=== PATIENT | male | born 1960 | race American Indian/Alaskan Native ===

== ENCOUNTER 2018-12-29 10:39 | Emergency (ER) | payer MEDICAID ==
[~2018-12-29] VITALS: Ht 167.6 cm; Wt 83.9 kg
[2018-12-29 10:51] VITALS: BP 149/80
[2018-12-29] MEDS ORDERED: KETOROLAC TROMETH 30 MG/ML 1ML VIAL IV ONE (11:45)
== END 2018-12-29 12:17 | disposition home or self-care (01) ==
LOC: ER 10:39 → EDBD 10:39 → ER 12:07
DX: S01.01XA Laceration without foreign body of scalp, initial encounter (principal); K21.9 Gastro-esophageal reflux disease without esophagitis; W01.198A Fall on same level from slipping, tripping and stumbling with subsequent striking against other object, initial encounter; Y93.89 Activity, other specified; Y99.8 Other external cause status; Y92.89 Other specified places as the place of occurrence of the external cause
CPT/HCPCS: 12002; 70450; 96374; 99284; J1885

== ENCOUNTER 2025-09-06 04:52 | Inpatient (IN) | payer MEDICAID, OTHER ==
[~2025-09-06] VITALS: Ht 185.4 cm; Wt 84.7 kg
[2025-09-06] VITALS (29 sets, daily range): BP systolic 82–161; BP diastolic 51–87; PULSE 41–92; RESP 16–19; TEMP 97–98.6; O2SAT 92–100
[2025-09-06] MEDS: LORazepam 2MG/ML-1ML VIAL ONE (06:41)
[2025-09-06] MEDS: LORazepam 2MG/ML-1ML VIAL IV ONE (06:42)
[2025-09-06] MEDS: MIDAZOLAM HCL 5 MG/ML-1ML VIAL ONE ×2 (06:42→07:20)
[2025-09-06] MEDS: MIDAZOLAM HCL 5 MG/ML-1ML VIAL IM ONE ×2 (06:43→07:51)
[2025-09-06 07:34] LABS: Hematocrit 39.3 % (41.0-53.0); Hemoglobin 13.7 g/dL (13.5-17.5); Mean Corpuscular Hemoglobin 32.2 pg (28.0-32.0); Mean Corpuscular Volume 92.2 fL (80.0-100.0); Nucleated Red Blood Cells % 0.1 %
[2025-09-06 07:39] LABS: Chloride 98 mmol/L (98-107); Potassium 4.0 mmol/L (3.5-5.1)
[2025-09-06 07:40] LABS: Anion Gap 15 (5-15); Calcium 9.6 mg/dL (8.7-10.4)
[2025-09-06 07:44] LABS: Carbon Dioxide 17 mmol/L (20-31); Sodium 130 mmol/L (136-145)
[2025-09-06 07:45] LABS: BUN/Creatinine Ratio 10.7 (10.0-20.0)
[2025-09-06 07:48] LABS: Blood Urea Nitrogen 9 mg/dL (9-23); Glucose 141 mg/dL (74-106)
[2025-09-06 07:50] LABS: Lactic Acid w/Reflex 8.1 mmol/L (0.4-2.0)
[2025-09-06] MEDS: MIDAZOLAM HCL 5 MG/ML-1ML VIAL IV ONE (07:51)
[2025-09-06] MEDS: ROCURONIUM 10MG/ML 10ML VIAL IV ONE ×2 (07:52→07:53)
[2025-09-06] MEDS: MIDAZOLAM DRIP 100 mg/100mL NS 100 ML IV SCH (07:58)
[2025-09-06] MEDS: PROPOFOL 100 ML IV SCH (07:58)
[2025-09-06] MEDS: MIDAZOLAM DRIP 100 mg/100mL NS 100 ML IV ONE (07:59)
[2025-09-06] MEDS: PROPOFOL 100 ML IV ONE (07:59)
[2025-09-06 08:32] LABS: Base Excess -2.2 mmol/L (-2.0-3.0)
--- NOTE | 2025-09-06 09:06 | DVHHP2 ---
Admitting Diagnosis: Seizure History of Present Illness 65M BIBA w/ prior MHx of Sz(taking depakote) and the c/c of Sz's. EMS report on picking the pt up at home due from having multiple SZ which were tonic clonic. Pt had 4 witnessed Sz in the ER and did not turn to baseline. states on not ever witnessing Sz's like these and stating on them being the worst Sz's he has ever had. Patient was given 10 of Versed, 100 with rocuronium, propofol, central line to the right FEM. Denies any other symptoms at this time. Denies chills, fever, N/V/D, SOB, CP. No other associated symptoms, modifiers, recent injuries or sick contacts present at this time. PAST MEDICAL HISTORY: Anxiety, GERD, Seizures Surgical History: Denies all surgeries Family History Family History: Reviewed,noncontributory to illness, Unknown Social History Smoker: Unknown Alcohol: Unknown Drugs: Unknown Lives In: Home Allergies: Coded Allergies: NO KNOWN ALLERGIES (Unverified , 12/29/18) Current Medications Current Medications Medications (Trade) Dose Ordered Sig/Keshawn Route PRN Reason Start Time Stop Time Status Last Admin Propofol 100 ml @ 3 mls/hr Q24H IV 09/06/25 07:30 09/06/25 07:58 Midazolam HCl 100 ml @ 1 mls/hr Q24H IV 09/06/25 07:30 09/06/25 07:58 Piperacillin Sod/ Tazobactam Sod 100 ml @ 25 mls/hr Q6HR IV 09/06/25 18:00 Levetiracetam 100 ml @ 400 mls/hr BID IV 09/06/25 22:00 Vital Signs Vital Signs Date Time Temp Pulse Resp B/P (MAP) Pulse Ox O2 Delivery O2 Flow Rate FiO2 09/06/25 11:14 65 18 96/52 (67) 100 35 09/06/25 06:55 Nasal Cannula* 2 09/06/25 05:00 98.9 98.9 Physical Exam Generally-65 years old male, well nourished well developed. Intubated and sedated HEENT-atraumatic normocephalic Heart-sinus tachycardic Lungs decreased breath sounds bilaterally Abdomen soft nontender nondistended Musculoskeletal-no edema cyanosis Neuro-intubated and sedated SEPSIS Sepsis Screen Date sepsis recognized/suspect: Sep 06, 2025 Time Sepsis recognized/suspect: 0500 Recent Procedure: No On Antibiotic Therapy: No Respiratory Rate >20: No Heart Rate >90: No Temp<36 C (96.8 F) or >38.3 C: No SBP <90 or MAP <65 mmHG: No New Acute Mental Status Change: No Is the patient on CPAP, BIPAP,: No Physician Orders Chest Portable (09/06/25 06:50) Blood Culture (09/06/25 06:50) Head Without Contrast (09/06/25 06:50) Propofol (Diprivan) (09/06/25 07:30) Midazolam Drip 100 Mg/100ml Ns (Versed D (09/06/25 07:30) Rass Sedation Scale Q1HR (09/06/25 07:16) Ventilator Setup (09/06/25 07:44) Respiratory Culture W/ Gs (09/06/25 07:44) Abg W/ Co-Ox (09/06/25 09:00) * Neurology Consult (09/06/25 09:07) Urine Bacterial Culture (09/06/25 09:16) Piperacillin-Tazob 3.375gm (Zosyn 3.375g (09/06/25 18:00) Respiratory Culture W/ Gs (09/06/25 11:17) Levetiracetam 1000 Mg/100ml (Levetiracet (09/06/25 22:00) Neuro Checks Per Unit Protocol (09/06/25 11:17) Abg W/ Co-Ox (09/07/25 05:00) Abg W/ Co-Ox (09/08/25 05:00) Abg W/ Co-Ox (09/09/25 05:00) Abg W/ Co-Ox (09/10/25 05:00) Abg W/ Co-Ox (09/11/25 05:00) Magnesium (09/07/25 05:00) Magnesium (09/08/25 05:00) Magnesium (09/09/25 05:00) Magnesium (09/10/25 05:00) Magnesium (09/11/25 05:00) Piperacillin-Tazob 3.375gm (Zosyn 3.375g (09/06/25 12:00) Vital Signs Date Time Temp Pulse Resp B/P (MAP) Pulse Ox O2 Delivery O2 Flow Rate FiO2 09/06/25 11:14 65 18 96/52 (67) 100 35 09/06/25 10:15 117/57 09/06/25 10:10 75 18 160/87 92 40 09/06/25 09:45 150/66 09/06/25 09:35 149/62 09/06/25 09:35 149/62 09/06/25 09:11 75 18 160/87 (111) 93 40 09/06/25 07:58 160/95 09/06/25 07:58 160/95 09/06/25 07:52 163/97 09/06/25 07:41 105 100 50 09/06/25 07:00 98 18 132/82 (99) 98 09/06/25 06:55 18 98 Nasal Cannula* 2 28 09/06/25 06:45 71 16 127/76 (93) 98 09/06/25 05:00 98.9 77 18 121/67 98 98.9 Laboratory Tests Test 09/06/25 07:10 09/06/25 09:17 Lactic Acid Level 8.1 mmol/L (0.4-2.0) *H 4.3 mmol/L (0.4-2.0) *H White Blood Count 10.5 10^3/uL (4.4-10.8) Medications Medications Dose Ordered Sig/Keshawn Route Start Time Stop Time Status Last Admin Dose Admin Levetiracetam 100 ml @ 400 mls/hr ONCE ONCE IV 09/06/25 07:00 09/06/25 07:14 DC 09/06/25 09:09 Lorazepam 2 mg STK-MED ONCE .ROUTE 09/06/25 06:14 09/06/25 06:15 DC 09/06/25 06:41 Midazolam HCl 10 mg ONCE ONCE IM 09/06/25 07:30 09/06/25 07:31 DC 09/06/25 07:51 Midazolam HCl 10 mg ONCE ONCE IV 09/06/25 07:30 09/06/25 07:31 DC 09/06/25 07:51 Midazolam HCl 10 mg STK-MED ONCE .ROUTE 09/06/25 06:38 09/06/25 06:37 DC 09/06/25 06:42 Midazolam HCl 100 ml @ 1 mls/hr Q24H IV 09/06/25 07:30 09/06/25 07:58 Piperacillin Sod/ Tazobactam Sod 100 ml @ 100 mls/hr ONCE ONCE IV 09/06/25 12:00 09/06/25 12:59 09/06/25 12:22 Propofol 100 ml @ 3 mls/hr Q24H IV 09/06/25 07:30 09/06/25 07:58 Rocuronium [place] 100 mg ONCE ONCE IV 09/06/25 07:30 09/06/25 07:31 DC 09/06/25 07:52 Sodium Chloride 1,000 ml @ 1,000 mls/hr Q1H ONCE IV 09/06/25 07:00 09/06/25 07:59 DC 09/06/25 09:09 Results Labs Test 09/06/25 09:17 09/06/25 08:35 09/06/25 08:29 09/06/25 07:10 Range/Units Lactic Acid Level 4.3 *H 0.4-2.0 mmol/L Urine Color Light-yellow Yellow Urine Clarity Clear Clear Urine pH 6.0 5.0-9.0 Urine Specific [place] 1.017 1.001-1.035 Urine Protein Negative Negative Urine Ketones 1+ H Negative Urine Blood 2+ H Negative /uL Urine Nitrite Negative Negative Urine Bilirubin Negative Negative Urine Urobilinogen Normal Negative mg/dL Urine Leukocyte Esterase Negative Negative /uL Urine RBC 7 0 - 3 /hpf Urine Microscopic WBC 3 0-3 /HPF Urine Squamous Epithelial Cells None seen <5 /hpf Urine Bacteria None seen None Seen /hpf Urine Mucus Few None Seen Urine Glucose 3+ H Normal mg/dL Urine Opiates Screen Neg NEGATIVE Urine Fentanyl Screen Neg NEGATIVE Urine Barbiturates Screen Neg NEGATIVE Urine Phencyclidine Screen Neg NEGATIVE Urine Amphetamines Screen Neg NEGATIVE Urine Benzodiazepines Screen Pos NEGATIVE Urine Cocaine Screen Neg NEGATIVE Urine Cannabinoids Screen Pos NEGATIVE Blood Gas Specimen Type Arterial Blood Gas Sample Site Left radial Blood Gas Patient Temperature 37.0 Arterial Blood Date Drawn [id number] Arterial Blood pH 7.391 7.350-7.450 Arterial Blood Partial Pressure CO2 37.5 35.0-48.0 mmHg Arterial Blood Partial Pressure O2 108.1 H 83.0-108.0 mmHg Arterial Blood HCO3 22.2 21.0-28.0 mmol/L Arterial Blood Oxygen Saturation 98.0 94.0-98.0 % Arterial Blood Base Excess -2.2 L -2.0-3.0 mmol/L Arterial Blood Oxyhemoglobin 96.1 94.0-98.0 % Arterial Blood Carboxyhemoglobin 1.4 0.5-1.5 % Arterial Blood Methemoglobin 0.5 0.0-1.5 % Ramses Test Modified Blood Gas Total Hemoglobin 14.60 13.5-17.5 g/dL Blood Gas Set Respiration Rate 18.0 Blood Gas Modality Vent - ac FiO2 % 50.0 Blood Gas Tidal Volume 500.0 Blood Gas PEEP or CPAP 5.0 White Blood Count 10.5 4.4-10.8 10^3/uL Red Blood Count 4.26 L 4.5-5.90 10^6/uL Hemoglobin 13.7 13.5-17.5 g/dL Hematocrit 39.3 L 41.0-53.0 % Mean Corpuscular Volume 92.2 80.0-100.0 fL Mean Corpuscular Hemoglobin 32.2 H 28.0-32.0 pg Mean Corpuscular Hemoglobin Concent 34.9 32.0-36.0 g/dL Red Cell Distribution Width 14.1 11.8-14.3 % Platelet Count 330 140-450 10^3/uL Mean Platelet Volume 8.5 6.9-10.8 fL Neutrophils (%) (Auto) 77.1 37.0-80.0 % Lymphocytes (%) (Auto) 15.6 10.0-50.0 % Monocytes (%) (Auto) 6.5 0.0-12.0 % Eosinophils (%) (Auto) 0.1 0.0-7.0 % Basophils (%) (Auto) 0.7 0.0-2.0 % Neutrophils # (Auto) 8.1 1.6-8.6 10 ^3/uL Lymphocytes # (Auto) 1.6 0.4-5.4 10 ^3/uL Monocytes # (Auto) 0.7 0-1.3 10 ^3/uL Eosinophils # (Auto) 0 0-0.8 10 ^3/uL Basophils # (Auto) 0.1 0-0.2 10 ^3/uL Nucleated Red Blood Cells 0.1 % Sodium Level 130 L 136-145 mmol/L Potassium Level 4.0 3.5-5.1 mmol/L Chloride Level 98 98-107 mmol/L Carbon Dioxide Level 17 L 20-31 mmol/L Anion Gap 15 5-15 Blood Urea Nitrogen 9 9-23 mg/dL Creatinine 0.84 0.700-1.30 mg/dL Glomerular Filtration Rate Calc 96 >90 mL/min BUN/Creatinine Ratio 10.7 10.0-20.0 Serum Glucose 141 H 74-106 mg/dL Calcium Level 9.6 8.7-10.4 mg/dL Troponin I High Sensitivity 74 *H </=54 ng/L Primary Diagnosis Tonic-clonic seizure Acute hypoxia requiring intubation Plan Patient was not pertinent airway status post intubation and central line placed Patient is on Versed and propofol for status epilepticus Vent management per research editor Check CT head to rule out acute intracranial hemorrhage Zosyn for broad-spectrum antibiotics Check blood culture, sputum culture Neuro check per floor protocol Neurology consult Full code Lovenox for DVT prophylaxis PPI for GI prophylaxis Plan discussed with: Patient Problems List: (1) Status epilepticus Date of Service: Sep 06, 2025 Billing Provider: VIKY SIDHU MD Common Visit Codes: [id number] INP/OBS CARE (HIGH) VIKY SIDHU MD Sep 06, 2025 09:06
[2025-09-06] MEDS: levETIRAcetam 1000 mg/100ml 100 ML IV ONE (09:09)
[2025-09-06] MEDS: SODIUM CHLORIDE 0.9% 1,000 ML IV ONE (09:09)
--- NOTE | 2025-09-06 09:09 | DVH ---
CLINICAL HISTORY: ams TECHNIQUE: Single view of the chest was obtained. COMPARISON: None FINDINGS: An endotracheal tube terminates 5 cm above the skye. Gastric tube enters stomach and courses beyond the edge of the image. The heart size and pulmonary vasculature are normal. There are medial bibasilar opacities. IMPRESSION: Medial bibasilar opacities, favor mild atelectasis.
--- NOTE | 2025-09-06 09:14 | ED.PDOC ---
History of Present Illness HPI Comments 65M BIBA w/ prior MHx of Sz(taking depakote) and the c/c of Sz's. EMS report on picking the pt up at home due from having multiple SZ which were tonic clonic. Pt had 4 witnessed Sz in the ER and did not turn to baseline. states on not ever witnessing Sz's like these and stating on them being the worst Sz's he has ever had. Patient was given 10 of Versed, 100 with rocuronium, propofol, central line to the right FEM. Denies any other symptoms at this time. Denies chills, fever, N/V/D, SOB, CP. No other associated symptoms, modifiers, recent injuries or sick contacts present at this time. Chief Complaint: Seizure Time Seen by MD: 06:00 Primary Care Provider: ARNALDO Razo Notes: Nurses Notes, Medications, Allergies Allergies: Coded Allergies: NO KNOWN ALLERGIES (Unverified , 12/29/18) Information Source: Patient, Emergency Med Personnel, Spouse Mode of Arrival: EMS Severity: Moderate Timing: Hours Duration: Since onset, Hours Prehospital treatment: None Past Medical History PAST MEDICAL HISTORY: Anxiety, GERD, Seizures Surgical History: Denies all surgeries Family History Family History: Reviewed,noncontributory to illness, Unknown Social History Smoker: Unknown Alcohol: Unknown Drugs: Unknown Lives In: Home Unable to Obtain due to: Altered Mental Status All Other Systems: Reviewed and Negative Physical Exam Exam Comments Patient is unresponsive, combative, confused, tachycardic, not protecting airway at this time General Appearance: No Apparent Distress, Normal HEENT: Normal ENT Inspection, Pharynx Normal, TMs Normal Neck: Full Range of Motion, Non-Tender, Normal, Normal Inspection Respiratory: Chest Non-Tender, Lungs Clear, No Accessory Muscle Use, No Respiratory Distress, Normal Breath Sounds Cardiovascular: No Edema, No JVD, No Murmur, No Gallop, Normal Peripheral Pulses, Regular Rate/Rhythm Breast Exam: Deferred Gastrointestinal: No Organomegaly, Non Tender, No Pulsatile Mass, Normal Bowel Sounds, Soft Genitalia: Deferred Pelvic: Deferred Rectal: Deferred Extremities: No calf tenderness, Normal capillary refill, Normal inspection, Normal range of motion, Non-tender, No pedal edema Musculoskeletal : Apperance: Normal Neurologic: Alert, process designer II-XII nml as Tested, No Motor Deficits, Normal Affect, Normal Mood, No Sensory Deficits Cerebellar Function: Normal Reflexes: Normal Skin: Dry, Normal Color, Warm Lymphatic: No Adenopathy Was a procedure done? 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 Physician Indication: Hypotension, Volume resuscitation Room prepared for procedure: Yes Security System Analyst performed hand hygien: Yes Maximal sterile barrier precau: Mask/Eye shield, Sterile gown, Sterlie gloves, Large sterlie drape Skin Preparation: Chlorhexidine gluconate Skin preparation completely dr: Yes Insertion site: Right, Femoral Central line catheter type: Vad-[id number] dialysis Number of lumens: 3 Central line exchanged over a: Yes Antiseptic ointment applied to: Yes Post Assessment: Proper placement Informed consent obtained: No Risks/benefits/alt described: No Intubation Indication: Altered Mental Status, Airway Protection Prep: No Preoxygenation Pretreated with: Other (Versed) Medicated with: Other (Rocuronium) Intubation Approach: Orotracheal Intubation size: cm (8) Informed consent obtained: No Risks/benefits/alt described: No Differential Dx Considerations may include: ACS, CVA, viral syndrome, status epilepticus, X-Ray, Labs, Meds, VS Vital Signs Date Time Temp Pulse Resp B/P (MAP) Pulse Ox O2 Delivery O2 Flow Rate FiO2 09/06/25 12:15 99.1 65 20 101/58 (72) 98 99.1 09/06/25 12:00 99.1 62 18 101/57 (72) 100 99.1 09/06/25 12:00 101/57 09/06/25 12:00 101/57 09/06/25 12:00 60 09/06/25 11:45 99.0 61 18 102/59 (73) 100 99.0 09/06/25 11:30 99.0 63 18 110/68 (82) 100 99.0 09/06/25 11:15 99.1 63 18 110/64 (79) 100 99.1 09/06/25 11:14 65 18 96/52 (67) 100 35 09/06/25 11:00 96/52 09/06/25 11:00 96/52 09/06/25 11:00 99.0 65 18 96/52 (67) 100 99.0 09/06/25 10:45 98.8 69 18 103/57 (72) 100 98.8 09/06/25 10:30 98.6 65 18 93/54 (67) 100 98.6 09/06/25 10:15 98.3 70 18 117/57 (77) 99 98.3 09/06/25 10:15 117/57 09/06/25 10:10 75 18 160/87 92 40 09/06/25 10:00 98.1 76 18 123/48 (73) 98 98.1 09/06/25 10:00 123/48 09/06/25 10:00 123/48 09/06/25 09:45 97.9 94 18 150/66 (94) 91 97.9 09/06/25 09:45 150/66 09/06/25 09:35 149/62 09/06/25 09:35 149/62 09/06/25 09:30 97.9 62 20 149/62 (91) 92 97.9 09/06/25 09:15 98.1 64 20 156/78 (104) 92 98.1 09/06/25 09:11 75 18 160/87 (111) 93 40 09/06/25 09:00 98.0 105 22 160/87 (111) 92 98.0 09/06/25 09:00 160/87 09/06/25 09:00 160/87 09/06/25 08:45 95 18 166/86 (112) 97 09/06/25 08:30 91 18 183/104 (130) 100 09/06/25 08:15 102 20 173/95 (121) 100 09/06/25 08:00 101 09/06/25 08:00 101 18 146/91 (109) 100 09/06/25 08:00 146/91 09/06/25 08:00 146/91 09/06/25 07:58 160/95 09/06/25 07:58 160/95 09/06/25 07:52 163/97 09/06/25 07:45 92 18 100 Mechanical Ventilator+ 50 50 09/06/25 07:45 92 18 163/97 (119) 100 09/06/25 07:41 105 100 50 09/06/25 07:00 98 18 132/82 (99) 98 09/06/25 06:55 18 98 Nasal Cannula* 2 28 09/06/25 06:45 71 16 127/76 (93) 98 09/06/25 05:00 98.9 77 18 121/67 98 98.9 Lab Test 09/06/25 09:17 09/06/25 08:35 09/06/25 08:29 09/06/25 07:10 Range/Units Lactic Acid Level 4.3 *H 8.1 *H 0.4-2.0 mmol/L Urine Color Light-yellow Yellow Urine Clarity Clear Clear Urine pH 6.0 5.0-9.0 Urine Specific [place] 1.017 1.001-1.035 Urine Protein Negative Negative Urine Ketones 1+ H Negative Urine Blood 2+ H Negative /uL Urine Nitrite Negative Negative Urine Bilirubin Negative Negative Urine Urobilinogen Normal Negative mg/dL Urine Leukocyte Esterase Negative Negative /uL Urine RBC 7 0 - 3 /hpf Urine Microscopic WBC 3 0-3 /HPF Urine Squamous Epithelial Cells None seen <5 /hpf Urine Bacteria None seen None Seen /hpf Urine Mucus Few None Seen Urine Glucose 3+ H Normal mg/dL Urine Opiates Screen Neg NEGATIVE Urine Fentanyl Screen Neg NEGATIVE Urine Barbiturates Screen Neg NEGATIVE Urine Phencyclidine Screen Neg NEGATIVE Urine Amphetamines Screen Neg NEGATIVE Urine Benzodiazepines Screen Pos NEGATIVE Urine Cocaine Screen Neg NEGATIVE Urine Cannabinoids Screen Pos NEGATIVE Blood Gas Specimen Type Arterial Blood Gas Sample Site Left radial Blood Gas Patient Temperature 37.0 Arterial Blood Date Drawn [id number] Arterial Blood pH 7.391 7.350-7.450 Arterial Blood Partial Pressure CO2 37.5 35.0-48.0 mmHg Arterial Blood Partial Pressure O2 108.1 H 83.0-108.0 mmHg Arterial Blood HCO3 22.2 21.0-28.0 mmol/L Arterial Blood Oxygen Saturation 98.0 94.0-98.0 % Arterial Blood Base Excess -2.2 L -2.0-3.0 mmol/L Arterial Blood Oxyhemoglobin 96.1 94.0-98.0 % Arterial Blood Carboxyhemoglobin 1.4 0.5-1.5 % Arterial Blood Methemoglobin 0.5 0.0-1.5 % Ramses Test Modified Blood Gas Total Hemoglobin 14.60 13.5-17.5 g/dL Blood Gas Set Respiration Rate 18.0 Blood Gas Modality Vent - ac FiO2 % 50.0 Blood Gas Tidal Volume 500.0 Blood Gas PEEP or CPAP 5.0 White Blood Count 10.5 4.4-10.8 10^3/uL Red Blood Count 4.26 L 4.5-5.90 10^6/uL Hemoglobin 13.7 13.5-17.5 g/dL Hematocrit 39.3 L 41.0-53.0 % Mean Corpuscular Volume 92.2 80.0-100.0 fL Mean Corpuscular Hemoglobin 32.2 H 28.0-32.0 pg Mean Corpuscular Hemoglobin Concent 34.9 32.0-36.0 g/dL Red Cell Distribution Width 14.1 11.8-14.3 % Platelet Count 330 140-450 10^3/uL Mean Platelet Volume 8.5 6.9-10.8 fL Neutrophils (%) (Auto) 77.1 37.0-80.0 % Lymphocytes (%) (Auto) 15.6 10.0-50.0 % Monocytes (%) (Auto) 6.5 0.0-12.0 % Eosinophils (%) (Auto) 0.1 0.0-7.0 % Basophils (%) (Auto) 0.7 0.0-2.0 % Neutrophils # (Auto) 8.1 1.6-8.6 10 ^3/uL Lymphocytes # (Auto) 1.6 0.4-5.4 10 ^3/uL Monocytes # (Auto) 0.7 0-1.3 10 ^3/uL Eosinophils # (Auto) 0 0-0.8 10 ^3/uL Basophils # (Auto) 0.1 0-0.2 10 ^3/uL Nucleated Red Blood Cells 0.1 % Sodium Level 130 L 136-145 mmol/L Potassium Level 4.0 3.5-5.1 mmol/L Chloride Level 98 98-107 mmol/L Carbon Dioxide Level 17 L 20-31 mmol/L Anion Gap 15 5-15 Blood Urea Nitrogen 9 9-23 mg/dL Creatinine 0.84 0.700-1.30 mg/dL Glomerular Filtration Rate Calc 96 >90 mL/min BUN/Creatinine Ratio 10.7 10.0-20.0 Serum Glucose 141 H 74-106 mg/dL Calcium Level 9.6 8.7-10.4 mg/dL Troponin I High Sensitivity 74 *H </=54 ng/L Current Medications Medications (Trade) Dose Ordered Sig/Keshawn Route Start Time Stop Time Status Last Admin Levetiracetam 100 ml @ 400 mls/hr ONCE ONCE IV 09/06/25 07:00 09/06/25 07:14 DC 09/06/25 09:09 Sodium Chloride 1,000 ml @ 1,000 mls/hr Q1H ONCE IV 09/06/25 07:00 09/06/25 07:59 DC 09/06/25 09:09 Midazolam HCl (Versed Injection) 10 mg ONCE ONCE IV 09/06/25 07:30 09/06/25 07:31 DC 09/06/25 07:51 Rocuronium [place] 100 mg ONCE ONCE IV 09/06/25 07:30 09/06/25 07:31 DC 09/06/25 07:52 Propofol 100 ml @ 3 mls/hr Q24H IV 09/06/25 07:30 09/06/25 14:54 Midazolam HCl 100 ml @ 1 mls/hr Q24H IV 09/06/25 07:30 09/06/25 07:58 Midazolam HCl (Versed Injection) 10 mg ONCE ONCE IM 09/06/25 07:30 09/06/25 07:31 DC 09/06/25 07:51 Piperacillin Sod/ Tazobactam Sod 100 ml @ 100 mls/hr ONCE ONCE IV 09/06/25 12:00 09/06/25 12:59 DC 09/06/25 12:22 Time of 1ST Reevaluation: 06:30 Reevaluation 1ST: Unchanged Patient Education/Counseling: Other (Patient with altered) Family Education/Counseling: Diagnosis, Treatment, No Family Present SEPSIS Sepsis Screen Date sepsis recognized/suspect: Sep 06, 2025 Time Sepsis recognized/suspect: 0500 Recent Procedure: No On Antibiotic Therapy: No Respiratory Rate >20: No Heart Rate >90: No Temp<36 C (96.8 F) or >38.3 C: No SBP <90 or MAP <65 mmHG: No New Acute Mental Status Change: No Is the patient on CPAP, BIPAP,: No Physician Orders Chest Portable (09/06/25 06:50) Blood Culture (09/06/25 06:50) Head Without Contrast (09/06/25 06:50) Propofol (Diprivan) (09/06/25 07:30) Midazolam Drip 100 Mg/100ml Ns (Versed D (09/06/25 07:30) Rass Sedation Scale Q1HR (09/06/25 07:16) Ventilator Setup (09/06/25 07:44) Respiratory Culture W/ Gs (09/06/25 07:44) Abg W/ Co-Ox (09/06/25 09:00) * Neurology Consult (09/06/25 09:07) Urine Bacterial Culture (09/06/25 09:16) Piperacillin-Tazob 3.375gm (Zosyn 3.375g (09/06/25 18:00) Respiratory Culture W/ Gs (09/06/25 11:17) Levetiracetam 1000 Mg/100ml (Levetiracet (09/06/25 22:00) Neuro Checks Per Unit Protocol (09/06/25 11:17) Abg W/ Co-Ox (09/07/25 05:00) Abg W/ Co-Ox (09/08/25 05:00) Abg W/ Co-Ox (09/09/25 05:00) Abg W/ Co-Ox (09/10/25 05:00) Abg W/ Co-Ox (09/11/25 05:00) Magnesium (09/07/25 05:00) Magnesium (09/08/25 05:00) Magnesium (09/09/25 05:00) Magnesium (09/10/25 05:00) Magnesium (09/11/25 05:00) Vital Signs Date Time Temp Pulse Resp B/P (MAP) Pulse Ox O2 Delivery O2 Flow Rate FiO2 09/06/25 12:15 99.1 65 20 101/58 (72) 98 99.1 09/06/25 12:00 99.1 62 18 101/57 (72) 100 99.1 09/06/25 12:00 101/57 09/06/25 12:00 101/57 09/06/25 12:00 60 09/06/25 11:45 99.0 61 18 102/59 (73) 100 99.0 09/06/25 11:30 99.0 63 18 110/68 (82) 100 99.0 09/06/25 11:15 99.1 63 18 110/64 (79) 100 99.1 09/06/25 11:14 65 18 96/52 (67) 100 35 09/06/25 11:00 96/52 09/06/25 11:00 96/52 09/06/25 11:00 99.0 65 18 96/52 (67) 100 99.0 09/06/25 10:45 98.8 69 18 103/57 (72) 100 98.8 09/06/25 10:30 98.6 65 18 93/54 (67) 100 98.6 09/06/25 10:15 98.3 70 18 117/57 (77) 99 98.3 09/06/25 10:15 117/57 09/06/25 10:10 75 18 160/87 92 40 09/06/25 10:00 98.1 76 18 123/48 (73) 98 98.1 09/06/25 10:00 123/48 09/06/25 10:00 123/48 09/06/25 09:45 97.9 94 18 150/66 (94) 91 97.9 09/06/25 09:45 150/66 09/06/25 09:35 149/62 09/06/25 09:35 149/62 09/06/25 09:30 97.9 62 20 149/62 (91) 92 97.9 09/06/25 09:15 98.1 64 20 156/78 (104) 92 98.1 09/06/25 09:11 75 18 160/87 (111) 93 40 09/06/25 09:00 98.0 105 22 160/87 (111) 92 98.0 09/06/25 09:00 160/87 09/06/25 09:00 160/87 09/06/25 08:45 95 18 166/86 (112) 97 09/06/25 08:30 91 18 183/104 (130) 100 09/06/25 08:15 102 20 173/95 (121) 100 09/06/25 08:00 101 09/06/25 08:00 101 18 146/91 (109) 100 09/06/25 08:00 146/91 09/06/25 08:00 146/91 09/06/25 07:58 160/95 09/06/25 07:58 160/95 09/06/25 07:52 163/97 09/06/25 07:45 92 18 100 Mechanical Ventilator+ 50 50 09/06/25 07:45 92 18 163/97 (119) 100 09/06/25 07:41 105 100 50 09/06/25 07:00 98 18 132/82 (99) 98 09/06/25 06:55 18 98 Nasal Cannula* 2 28 09/06/25 06:45 71 16 127/76 (93) 98 09/06/25 05:00 98.9 77 18 121/67 98 98.9 Laboratory Tests Test 09/06/25 07:10 09/06/25 09:17 Lactic Acid Level 8.1 mmol/L (0.4-2.0) *H 4.3 mmol/L (0.4-2.0) *H White Blood Count 10.5 10^3/uL (4.4-10.8) Medications Medications Dose Ordered Sig/Keshawn Route Start Time Stop Time Status Last Admin Dose Admin Midazolam HCl 10 mg ONCE ONCE IM 09/06/25 07:30 09/06/25 07:31 DC 09/06/25 07:51 Midazolam HCl 10 mg ONCE ONCE IV 09/06/25 07:30 09/06/25 07:31 DC 09/06/25 07:51 Midazolam HCl 100 ml @ 1 mls/hr Q24H IV 09/06/25 07:30 09/06/25 07:58 Piperacillin Sod/ Tazobactam Sod 100 ml @ 100 mls/hr ONCE ONCE IV 09/06/25 12:00 09/06/25 12:59 DC 09/06/25 12:22 Propofol 100 ml @ 3 mls/hr Q24H IV 09/06/25 07:30 09/06/25 14:54 Rocuronium [place] 100 mg ONCE ONCE IV 09/06/25 07:30 09/06/25 07:31 DC 09/06/25 07:52 Departure 1 Departure Time of Disposition: 19:03 (Patient presented in status epilepticus. Patient was emergently intubated and central line pace. Patient received multiple rounds of benzos started on propofol. We will admit patient for further workup and expert consultation) Impression: Primary Impression: Status epilepticus Additional Impressions: Generalized weakness Encephalopathy Disposition: ADMITTED INPATIENT Admit to: ICU Condition: Critical Critical Care Note Critical Care Time?: Yes Critical care comment: Status epilepticus Authorized and Performed by: Summer Acuña MD Total critical care time: Approximately 127 minutes Due to a high probability of clinically significant, life threatening deterioration, the patient required my highest level of preparedness to intervene emergently and I personally spent this critical care time directly and personally managing the patient. This critical care time included obtaining a history; examining the patient; pulse oximetry; ordering and review of studies; arranging urgent treatment with development of a management plan; evaluation of patient's response to treatment; frequent reassessment; and, discussions with other providers. This critical care time was performed to assess and manage the high probability of imminent, life-threatening deterioration that could result in multi-organ failure. It was exclusive of separately billable procedures and treating other patients and teaching time. Please see my other sections and the rest of the note for further information on patient assessment and treatment. Stability Stability form required: No I personally scribed for SUMMER ACUÑA MD ([email or web address]) on 09/06/25 at 09:14. Electronically submitted by Brian Barroso ([email or web address]). SUMMER ACUÑA MD Sep 06, 2025 09:14
[2025-09-06 09:53] LABS: Urine Protein, UAD Negative (Negative)
[2025-09-06 10:03] LABS: Amphetamine Screen, Urine Neg (NEGATIVE); Barbiturate Scree,Urine Neg (NEGATIVE); Benzodiazephine Screen, Urine Pos (NEGATIVE); Cannabinoid Screen, Urine Pos (NEGATIVE); Cocaine Screen, Urine Neg (NEGATIVE); Opiate Scree,Urine Neg (NEGATIVE); Phencyclidine Screen, Urine Neg (NEGATIVE)
--- NOTE | 2025-09-06 12:00 | DVH ---
CLINICAL HISTORY: ams TECHNIQUE: Helical scanning was performed of the head from the skull base to the vertex. Multiplanar reconstructions were performed. This exam was performed according to our departmental dose optimization program. Up-to-date CT equipment and radiation dose reduction techniques are utilized as appropriate. CTDI 49 DLP 1010 COMPARISON: None FINDINGS: There is no evidence for acute intracranial hemorrhage, acute ischemic changes, mass, mass effect, or extra-axial fluid collection. There is no hydrocephalus or midline shift. There is no effacement of the cerebral sulci and basal subarachnoid cisterns. The desai-white matter differentiation is well maintained. The imaged paranasal sinuses are clear. IMPRESSION: NO ACUTE INTRACRANIAL ABNORMALITY SEEN.
[2025-09-06] MEDS: PIPERACILLIN-TAZOB 3.375GM 100 ML IV ONE (12:22)
[2025-09-06] MEDS ORDERED: ACETAMINOPHEN 325 MG TAB PO PRN (12:30)
[2025-09-06] MEDS ORDERED: HYDROmorphone HCL 2 MG/ML VL/or syr IV PRN (12:30)
[2025-09-06] MEDS ORDERED: HYDROcodone-ACET 5/325MG TAB PO PRN (12:30)
[2025-09-06] MEDS ORDERED: METOCLOPRAMIDE HCL 5MG/ml INJ 2ml VIAL IV PRN (12:30)
[2025-09-06] MEDS ORDERED: DOCUSATE SOD 100 MG CAP PO PRN (12:30)
[2025-09-06] MEDS: SODIUM CHLOR 0.9% PF (SALINE LOCK) 10ML VIAL/SYR IV SCH (14:02)
[2025-09-06] MEDS: PIPERACILLIN-TAZOB 3.375GM 100 ML IV SCH (18:11)
[2025-09-06] MEDS: NOREPINEPHRINE 8 MG/250ML KIT 250 ML IV SCH (19:45)
[2025-09-06] MEDS: NOREPINEPHRINE 8 MG/250ML KIT 250 ML IV ONE (19:45)
[2025-09-06] MEDS: DOPamine 1600MCG/ML D5W 250 ML IV ONE (20:07)
[2025-09-06] MEDS: DOPamine 1600MCG/ML D5W 250 ML IV SCH ×2 (20:20→23:35)
[2025-09-06] MEDS: levETIRAcetam 1000 mg/100ml 100 ML IV SCH (21:52)
[2025-09-07] VITALS (107 sets, daily range): BP systolic 76–189; BP diastolic 45–86; PULSE 45–108; RESP 15–21; TEMP 97.7–99.3; O2SAT 96–100
[2025-09-07 04:35] LABS: Hematocrit 37.0 % (41.0-53.0); Hemoglobin 13.0 g/dL (13.5-17.5); Mean Corpuscular Hemoglobin 31.7 pg (28.0-32.0); Mean Corpuscular Volume 90.4 fL (80.0-100.0); Nucleated Red Blood Cells % 0.0 %
[2025-09-07 04:51] LABS: Anion Gap 10 (5-15); Carbon Dioxide 24 mmol/L (20-31); Chloride 102 mmol/L (98-107); Sodium 136 mmol/L (136-145)
[2025-09-07 04:52] LABS: Calcium 9.0 mg/dL (8.7-10.4)
[2025-09-07 04:54] LABS: Potassium 2.8 mmol/L (3.5-5.1)
[2025-09-07 04:57] LABS: BUN/Creatinine Ratio 7.9 (10.0-20.0); Glucose 102 mg/dL (74-106)
[2025-09-07 04:58] LABS: Magnesium 2.1 mg/dL (1.6-2.6)
[2025-09-07 04:59] LABS: Blood Urea Nitrogen 6 mg/dL (9-23)
--- NOTE | 2025-09-07 05:56 | DVH ---
CHEST RADIOGRAPH Indication: PNA Technique: 1 view Comparison: XY CHEST PORTABLE on DOS: 09/06/25 FINDINGS: Lines and Tubes: Unchanged. Lungs/Pleura: Unchanged. Cardiomediastinum: Unchanged. Other: Unchanged osseous structures. IMPRESSION: 1. No significant change from the previous study. Stable endotracheal and enteric tubes. Persistent zwix-[id number]-xbmb-right infrahilar opacities.
[2025-09-07] MEDS: POTASSIUM CHL 20MEQ/100ML 100 ML IV SCH (06:04)
[2025-09-07 07:13] LABS: Base Excess -1.4 mmol/L (-2.0-3.0)
[2025-09-07 11:02] LABS: Alanine Aminotransferase 11.0 U/L (7-40); Albumin 4.0 g/dL (3.2-4.8); Alkaline Phosphatase 44.0 U/L (46-116); Bilirubin, Direct 0.2 mg/dL (<0.3); Bilirubin, Total 0.4 mg/dL (0.2-1.0); Total Protein 6.4 g/dL (5.7-8.2)
[2025-09-07] MEDS: ENOXAPARIN SOD 40 MG/0.4 ML SYRINGE SC SCH (11:19)
[2025-09-07 11:21] LABS: Base Excess -3.4 mmol/L (-2.0-3.0)
--- NOTE | 2025-09-07 13:04 | ECG ---
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
--- NOTE | 2025-09-07 13:24 | DVHINCON2 ---
Date Seen: Sep 07, 2025 Referring Physician Landon Reason for Consultation Elevated troponin History of Present Illness 65-year-old male with PMH for recent diagnosis seizures, GERD, HLD, HTN presents to the hospital with active seizures. Patient currently intubated therefore information gathering mainly from chart review and at bedside. Apparently patient had 4 witnessed seizures in the ER and was not returned to baseline was seemed to be hypoxic and therefore intubated. Per patient had 3 previous seizures at home was recently diagnosed with seizures just a couple of months prior and has been following up with Neurology down the [place]. Denies any signi ficant cardiac history besides HTN in HLD. She does endorse that he has never mentioned anything about chest pain palpitations no shortness of breath and is otherwise fairly healthy. On further evaluation patient found to have mildly elevated troponin of 74 overnight trending to 474. Cardiology consulted. EKG reviewed and shows sinus bradycardia, no acute ST and T-wave abnormalities. Past Medical History As stated above Past Surgical History No previous cardiac surgeries Family History No pertinent family cardiac history Social History Per endorses marijuana use, denies any other illicit drug use, no tobacco or alcohol use. Allergies: Coded Allergies: NO KNOWN ALLERGIES (Unverified , 12/29/18) Current Medications Current Medications Medications (Trade) Dose Ordered Sig/Keshawn Route PRN Reason Start Time Stop Time Status Last Admin Piperacillin Sod/ Tazobactam Sod 100 ml @ 25 mls/hr Q6HR IV 09/06/25 18:00 09/07/25 12:43 Levetiracetam 100 ml @ 400 mls/hr BID IV 09/06/25 22:00 09/07/25 11:18 Sodium Chloride (Saline Lock Ns) 10 ml Q8HR IV 09/06/25 14:00 09/07/25 05:01 Enoxaparin Sodium (Lovenox) 40 mg DAILY SC 09/07/25 10:00 09/07/25 11:19 Norepinephrine Bitartrate 250 ml @ 3.75 mls/hr Q24H IV 09/06/25 19:45 09/06/25 19:45 Dopamine HCl/ Dextrose 250 ml @ 14.681 mls/ hr Q17H2M IV 09/06/25 20:15 09/06/25 23:28 DC 09/06/25 20:20 Dopamine HCl/ Dextrose 250 ml @ 14.681 mls/ hr Q17H2M IV 09/06/25 23:30 09/06/25 23:35 Lorazepam (Ativan Inj) 1 mg Q2HPRN PRN IV SEIZURES 09/07/25 05:45 Potassium Chloride 100 ml @ 50 mls/hr Q2H IV 09/07/25 05:45 09/07/25 11:44 DC 09/07/25 11:29 Review of Systems Not done, patient intubated and sedated Vital Signs Vital Signs Date Time Temp Pulse Resp B/P (MAP) Pulse Ox O2 Delivery O2 Flow Rate FiO2 09/07/25 12:46 102/63 09/07/25 12:12 52 17 99 30 09/07/25 07:00 99.0 210.2 09/07/25 05:53 Mechanical Ventilator+ 09/06/25 06:55 2 Physical Exam General appearance: Patient is well-developed, well-nourished, in no acute distress. HEENT: Exam shows: Normocephalic, atraumatic, PERRLA, EOMI Neck: Supple, no bruits Chest: Equal chest excursion bilaterally. Breath sounds normal-no rales or wheezes. Heart: Rhythm: Bradycardia; no murmur or gallop Abdomen: Exam shows: Soft, nontender, nondistended Musculoskeletal: No clubbing, no cyanosis, no lower extremity edema Dermatology: Skin warm, moist. Neurological: Exam shows: Intubated and sedated Available prior records, labs, EKG, rhythm strips reviewed and interpreted Labs/Diagnostic Data Labs Test 09/07/25 11:35 09/07/25 11:10 09/07/25 04:00 09/06/25 08:35 Range/Units Lactic Acid Level 0.9 0.4-2.0 mmol/L Blood Gas Specimen Type Arterial Blood Gas Sample Site Left radial Blood Gas Patient Temperature 37.0 Arterial Blood Date Drawn [id number] Arterial Blood pH 7.450 7.350-7.450 Arterial Blood Partial Pressure CO2 28.2 L 35.0-48.0 mmHg Arterial Blood Partial Pressure O2 97.3 83.0-108.0 mmHg Arterial Blood HCO3 19.2 L 21.0-28.0 mmol/L Arterial Blood Oxygen Saturation 97.2 94.0-98.0 % Arterial Blood Base Excess -3.4 L -2.0-3.0 mmol/L Arterial Blood Oxyhemoglobin 96.7 94.0-98.0 % Arterial Blood Carboxyhemoglobin 0.3 L 0.5-1.5 % Arterial Blood Methemoglobin 0.2 0.0-1.5 % Ramses Test Modified Blood Gas Total Hemoglobin 13.80 13.5-17.5 g/dL Blood Gas Set Respiration Rate 16.0 Blood Gas Modality Vent - ac FiO2 % 30.0 Blood Gas Tidal Volume 500.0 Blood Gas PEEP or CPAP 5.0 White Blood Count 7.2 # 4.4-10.8 10^3/uL Red Blood Count 4.10 L 4.5-5.90 10^6/uL Hemoglobin 13.0 L 13.5-17.5 g/dL Hematocrit 37.0 L 41.0-53.0 % Mean Corpuscular Volume 90.4 80.0-100.0 fL Mean Corpuscular Hemoglobin 31.7 28.0-32.0 pg Mean Corpuscular Hemoglobin Concent 35.1 32.0-36.0 g/dL Red Cell Distribution Width 14.6 H 11.8-14.3 % Platelet Count 262 140-450 10^3/uL Mean Platelet Volume 8.2 6.9-10.8 fL Neutrophils (%) (Auto) 76.6 37.0-80.0 % Lymphocytes (%) (Auto) 12.3 10.0-50.0 % Monocytes (%) (Auto) 10.9 0.0-12.0 % Eosinophils (%) (Auto) 0.1 0.0-7.0 % Basophils (%) (Auto) 0.1 0.0-2.0 % Neutrophils # (Auto) 5.5 1.6-8.6 10 ^3/uL Lymphocytes # (Auto) 0.9 0.4-5.4 10 ^3/uL Monocytes # (Auto) 0.8 0-1.3 10 ^3/uL Eosinophils # (Auto) 0 0-0.8 10 ^3/uL Basophils # (Auto) 0 0-0.2 10 ^3/uL Nucleated Red Blood Cells 0.0 % Sodium Level 136 # 136-145 mmol/L Potassium Level 2.8 L 3.5-5.1 mmol/L Chloride Level 102 98-107 mmol/L Carbon Dioxide Level 24 20-31 mmol/L Anion Gap 10 5-15 Blood Urea Nitrogen 6 L 9-23 mg/dL Creatinine 0.76 0.700-1.30 mg/dL Glomerular Filtration Rate Calc 99 >90 mL/min BUN/Creatinine Ratio 7.9 L 10.0-20.0 Serum Glucose 102 74-106 mg/dL Calcium Level 9.0 8.7-10.4 mg/dL Magnesium Level 2.1 1.6-2.6 mg/dL Total Bilirubin 0.4 0.2-1.0 mg/dL Direct Bilirubin 0.2 <0.3 mg/dL Aspartate Amino Transferase (AST) 28 13-40 U/L Alanine Aminotransferase (ALT) 11 7-40 U/L Alkaline Phosphatase 44 L 46-116 U/L Troponin I High Sensitivity 474 *H </=54 ng/L Total Protein 6.4 5.7-8.2 g/dL Albumin 4.0 3.2-4.8 g/dL Urine Color Light-yellow Yellow Urine Clarity Clear Clear Urine pH 6.0 5.0-9.0 Urine Specific [place] 1.017 1.001-1.035 Urine Protein Negative Negative Urine Ketones 1+ H Negative Urine Blood 2+ H Negative /uL Urine Nitrite Negative Negative Urine Bilirubin Negative Negative Urine Urobilinogen Normal Negative mg/dL Urine Leukocyte Esterase Negative Negative /uL Urine RBC 7 0 - 3 /hpf Urine Microscopic WBC 3 0-3 /HPF Urine Squamous Epithelial Cells None seen <5 /hpf Urine Bacteria None seen None Seen /hpf Urine Mucus Few None Seen Urine Glucose 3+ H Normal mg/dL Urine Opiates Screen Neg NEGATIVE Urine Fentanyl Screen Neg NEGATIVE Urine Barbiturates Screen Neg NEGATIVE Urine Phencyclidine Screen Neg NEGATIVE Urine Amphetamines Screen Neg NEGATIVE Urine Benzodiazepines Screen Pos NEGATIVE Urine Cocaine Screen Neg NEGATIVE Urine Cannabinoids Screen Pos NEGATIVE Microbiology Date/Time Source Procedure Growth Status 09/06/25 18:27 Nose MRSA Screen - Final Complete 09/06/25 08:35 Urine - [place] Urine Culture - Preliminary No growth Resulted 09/06/25 08:05 Blood Blood Culture - Preliminary NO GROWTH AFTER 24 HOURS OF INCUBATION. Resulted 09/06/25 07:39 Sputum Gram Stain Pending Resulted 09/06/25 07:39 Sputum Respiratory Culture - Preliminary Resulted Assessment * Elevated troponins - likely demand ischemia in setting of seizure activity. Continue trending. Follow up echo. No significant ischemic EKG abnormalities on review. We will hold off on aspirin for now, may start once cleared by Neurology. * Sinus bradycardia - on dopamine drip at 3 mcg/kg/min. Patient is heavily sedated. Continue monitoring for now. Check TSH, follow up echo. * Hypokalemia - potassium 2.8, monitoring replace electrolytes, keep K greater than 4. * Seizures - CT head negative. Continue management per specialty * HX HLD - resume statin once tolerating p.o.. * HX HTN - patient hypotensive on vasopressor support with Levophed low dose. Check echo. Hold home meds for now. Case Discussed with Dr Shaffer. Elevated troponin likely in setting of seizure, episode hypoxia in the ER. Demand ischemia. Follow up echocardiogram. May start on aspirin if cleared by Neurology. Patient may benefit from an ischemic workup in the future, likely on outpatient basis. Critical care, time spent: 40 minutes This medical document was created using an electronic medical record system with voice recognition software and computerized dictation system. Although this document has been carefully reviewed, there might still be some phonetic and typographical errors. Occasional wrong-word or ``sound-alike substitutions may have occurred due to the inherent limitations of voice recognition software. These areas are purely typographical due to imperfections of the software programs and do not reflect any compromise in the patient's medical care. Please read the chart carefully and recognize, using context, where these substitutions have occurred. Thank you for allowing me to participate in the management of this patient. The treatment plan was discussed with and agreed upon by patient/family including requesting consultants and ordering of imaging/procedures. Plan discussed with: Spouse NYHA Physical activity limitations: NA Date of Service: Sep 07, 2025 Billing Provider: VIMAL DIAS Cardiology Common Codes: 31812-OVJXOCN INP/OBS CARE (High), 70560-[id number] CARE 30-74 MIN VIMAL DIAS Sep 07, 2025 13:24
--- NOTE | 2025-09-07 15:11 | DVHPNRES ---
Progress Note Date Seen: Sep 07, 2025 Resident Creating Document: SELIN CHAPMAN RESIDENT Medical Necessity Reason Pt with a Central, PICC or Fol: No Subjective Review of Systems Patient is a 65-year-old male with past medical history of anxiety, GERD, seizure disorder. as per patient had a seizure at 2:00 a.m. on 09/06/2025. Which was followed by another tonic-clonic seizure 20 minutes later. For which called 911. Upon arrival in the ER patient had another for seizures which did not turn to baseline for 1 hour. states that patient's last seizure was on August 04. Patient was intubated in the ER patient was shaking and had altered level of consciousness. states that patient did not have any recent illnesses, flu-like symptoms, sick contacts. As per patient is compliant with medications for seizure( Depakote). past surgical history: Denies any surgeries Family history: Cancer in sister, uncle Social history: Smokes marijuana, denies any cigarette, alcohol, drug use. Lives with: Spouse, at home 09/07/2025: Patient seen in the ICU. as per patient did not experience any chest pain, palpitations, shortness of breath. Overnight patient's heart rate did drop to the 30s for which dopamine was . Patient has elevated troponins, cardiology was consulted. Patient has sinus bradycardia. potassium was replaced. Started vital HP feeding. Aspirin given. Patient is too unstable to transfer. Neurology on board, As per cardiology heparin drip and aspirin to be held Objective vital signs Vital Sign Date Time Temp Pulse Resp B/P (MAP) Pulse Ox O2 Delivery O2 Flow Rate FiO2 09/07/25 14:41 137/63 09/07/25 14:05 56 17 97 30 09/07/25 07:00 99.0 210.2 09/07/25 05:53 Mechanical Ventilator+ 09/06/25 06:55 2 Total Intake and Output 09/06/25 09/06/25 09/07/25 15:00 23:00 07:00 Intake Total 1200 ml 555.113 ml 384.105 ml Output Total 600 ml 4650 ml Balance 1200 ml -44.887 ml -4265.895 ml medications Current Medications Medications Dose Ordered Sig/Keshawn Route Start Time Stop Time Status Last Admin Dose Admin Propofol 100 ml @ 3 mls/hr Q24H IV 09/06/25 07:30 09/07/25 14:41 27 MLS/HR Midazolam HCl 100 ml @ 1 mls/hr Q24H IV 09/06/25 07:30 09/07/25 06:14 6 MLS/HR Piperacillin Sod/ Tazobactam Sod 100 ml @ 25 mls/hr Q6HR IV 09/06/25 18:00 09/07/25 12:43 25 MLS/HR Levetiracetam 100 ml @ 400 mls/hr BID IV 09/06/25 22:00 09/07/25 11:18 400 MLS/HR Sodium Chloride 10 ml Q8HR IV 09/06/25 14:00 09/07/25 05:01 10 ML Metoclopramide HCl 10 mg Q4HP PRN IV 09/06/25 12:30 Docusate Sodium 100 mg BIDPRN PRN PO 09/06/25 12:30 Acetaminophen 650 mg Q6HP PRN PO 09/06/25 12:30 Acetaminophen/ Hydrocodone Bitart 1 tab Q4HP PRN PO 09/06/25 12:30 Hydromorphone HCl 0.5 mg Q4HP PRN IV 09/06/25 12:30 Enoxaparin Sodium 40 mg DAILY SC 09/07/25 10:00 09/07/25 11:19 40 MG Norepinephrine Bitartrate 250 ml @ 3.75 mls/hr Q24H IV 09/06/25 19:45 09/06/25 19:45 3.75 MLS/HR Dopamine HCl/ Dextrose 250 ml @ 14.681 mls/ hr Q17H2M IV 09/06/25 23:30 09/06/25 23:35 8.809 MLS/HR Lorazepam 1 mg Q2HPRN PRN IV 09/07/25 05:45 Examination General: mechanically ventilated, sedated HEENT: Normocephalic, atraumatic, moist mucous membranes Respiratory/pulmonary: Clear lungs bilaterally, vesicular murmurs present in almost all lung lorenz, no associated crackles or wheezes. Cardiovascular: Normal heart sounds S1 and S2 with no associated murmurs Abdomen: Abdomen nondistended, there is no pain to palpation in any of the abdominal quadrants, no palpable masses. Extremities: There is no peripheral edema present at the lower extremities. Peripheral Pulses: 3+ Radial (R). 3+ Radial (L). 3+ Dorsalis pedis (R). 3+ Dorsalis pedis(L) Skin: No rashes or pruritus, there is no sacral edema present at this time. Neurological: Pinpoint pupil, cough and gag reflex present. laboratory and microbiology Laboratory Tests 09/07/25 04:00 Test 09/07/25 04:00 Range/Units Serum Glucose 102 74-106 mg/dL Microbiology Date/Time Source Procedure Growth Status 09/06/25 18:27 Nose MRSA Screen - Final Complete 09/06/25 08:35 Urine - [place] Urine Culture - Preliminary No growth Resulted 09/06/25 08:05 Blood Blood Culture - Preliminary NO GROWTH AFTER 24 HOURS OF INCUBATION. Resulted 09/06/25 07:39 Sputum Gram Stain Pending Resulted 09/06/25 07:39 Sputum Respiratory Culture - Preliminary Resulted Problem List/Assessment/Plan Problem List/Assessment/Plan Neurology Status epilepticus Generalized tonic-clonic seizures history of anxiety mechanical ventilation mode AC, FiO2 30, peep 5, VT 500, RR 16 sedated - Keppra IV b.i.d. - Depakote home medication - neurology consult, pending - head CT showed NO ACUTE INTRACRANIAL ABNORMALITY SEEN. Cardiology NSTEMI type 2, type 1 not ruled out Hypertension Hyperlipidemia sinus bradycardia - cardiology consulted - As per cardio, heparin and asprin to be held - dopamine drip for bradycardia - echo ordered - elevated troponins 74> 818 Respiratory rule out aspiration pneumonia - IV Zosyn GI history of GERD - GI prophylaxis Protonix - Reglan Renal/electrolytes Hypokalemia - replaced DVT prophylaxis: Lovenox PPI prophylaxis: Protonix Lines /tubes/devices Airway: Intubated via ETT on 09/06 Vascular access: right femoral 09/06 drips: dopamine, propofol, midazolam Goals of care discussed with patient's family for more than 29 minutes: Full code Care of plan updated to spouse on bedside and addressed all concerns Critical care time spent more than 83 minutes excluding procedures and including discussion with family Case discussed with Dr. Putnam, RN Plan discussed with: Spouse My Orders My Orders Orders - SELIN CHAPMAN RESIDENT Procedure Category Date Status Time Ventilator Orders RT 09/07/25 Transmitted 09:55 Abg W/ Co-Ox RT 09/07/25 Logged 11:00 Basic Metabolic Panel LAB 09/07/25 Logged 11:51 * Cardiology Consult CONS 09/07/25 Transmitted 10:57 Urinalysis LAB 09/07/25 Logged 14:28 Dietary Evaluation Review Comments: 1. TF Vital high Protein @60ml/hr providing 126g Protein 1440kcal, 1204ml free water, meeting pt's needs @ 136% Protein, 93% energy 2. Rassess when Pt is off vent. Expected Outcomes/Goals: Improved nutrition related lab profile, graduaul weight gain SELIN CHAPMAN RESIDENT Sep 07, 2025 15:11
[2025-09-07 16:04] LABS: Chloride 103 mmol/L (98-107); Potassium 3.8 mmol/L (3.5-5.1)
--- NOTE | 2025-09-07 16:04 | DVHINCON2 ---
Date of service: Sep 07, [address] Leggett Reason for Consultation Seizure History of Present Illness Mr. Morgan is a 65 years old left-handed gentleman with a history of seizure, GERD, anxiety, he was brought to the [facility] on 09/06/2025 with a chief complaint of seizure activity. At this time, he is sedated, intubated, the history is obtained from his daughter, is in the room, but she is a poor historian Around 2:00 a.m. on 09/06/2025, witnessed a seizure in that the patient is nonresponsive, with movement in the arms and legs, and the event was about or more than 5 minutes, there was no oral trauma According to his daughter, Once every two to three months, the patient has an event, in that he has hands moving from [id number] in front of himself, moves the legs, eyes rolling back, but sometimes staring forward, while he is nonresponsive to his surroundings, typically the event lasts for about 5 minutes, followed by confusion He bumped his head with loss of consciousness for unknown duration before seizu re onset. Otherwise this no major head injury, intracranial infection before the seizure onset, no family history of seizure disorder He saw a [facility] neurologist, but he did not returned for follow-up, he is on Keppra 500 mg b.i.d., He has a few passing out event from 2019 through 2023, there is no warning symptoms, and he typically pass out for a few minutes, his doctor said he had Parkinson's disease According to the family, three years ago, the patient developed progressive symmetric tremors in both upper extremities, the tremors can be both dynamic and resting, but more obvious when he is working with his hands. He has poor sense of smell for a few months of time, otherwise this no constipation, voice changes, RBC symptoms. This no family history of tremors or Parkinson's disease, he company quit alcohol for many years. He is not on Parkinson's medications Home medications, according to external med Hx, included Depakote 100 mg b.i.d., sertraline 100 mg daily WBC/HB/PLT/MCV, 09/07/25: 7.2/13/262/90.4 CBC, 09/07/25 0829: Unremarkable K, 09/07/2025: 2.8 Lactic acid, 09/06/2025: 8.1, 4.3 Liver function tests, 09/07/2025: Unremarkable CT head, 09/06/2025: NO ACUTE INTRACRANIAL ABNORMALITY SEEN. Past Medical History Seizure, GERD, anxiety Past Surgical History None Family History Cancer, the family is not aware of tremors, seizure or other major medical problem in the family Social History He has no history of tobacco smoking, but he uses marijuana, he was on have alcohol drinker, but no history of drug abuse Allergies: Coded Allergies: NO KNOWN ALLERGIES (Unverified , 12/29/18) Current Medications Current Medications Medications (Trade) Dose Ordered Sig/Keshawn Route PRN Reason Start Time Stop Time Status Last Admin Piperacillin Sod/ Tazobactam Sod 100 ml @ 25 mls/hr Q6HR IV 09/06/25 18:00 09/07/25 12:43 Levetiracetam 100 ml @ 400 mls/hr BID IV 09/06/25 22:00 09/07/25 11:18 Enoxaparin Sodium (Lovenox) 40 mg DAILY SC 09/07/25 10:00 09/07/25 11:19 Norepinephrine Bitartrate 250 ml @ 3.75 mls/hr Q24H IV 09/06/25 19:45 09/06/25 19:45 Dopamine HCl/ Dextrose 250 ml @ 14.681 mls/ hr Q17H2M IV 09/06/25 20:15 09/06/25 23:28 DC 09/06/25 20:20 Dopamine HCl/ Dextrose 250 ml @ 14.681 mls/ hr Q17H2M IV 09/06/25 23:30 09/06/25 23:35 Lorazepam (Ativan Inj) 1 mg Q2HPRN PRN IV SEIZURES 09/07/25 05:45 Potassium Chloride 100 ml @ 50 mls/hr Q2H IV 09/07/25 05:45 09/07/25 11:44 DC 09/07/25 11:29 Aspirin 81 mg DAILY NG 09/08/25 10:00 Enteral Nutritional Formula (Vital High Protein) 1,000 ml 30ML/HR GT 09/07/25 15:30 Pantoprazole Sodium (Protonix) 40 mg DAILY IV 09/08/25 10:00 Review of Systems As above, the other systems are negative Vital Signs Vital Signs Date Time Temp Pulse Resp B/P (MAP) Pulse Ox O2 Delivery O2 Flow Rate FiO2 09/07/25 15:15 98.4 53 18 108/72 (84) 97 209.1 09/07/25 14:05 30 09/07/25 14:00 Mechanical Ventilator+ 09/06/25 06:55 2 Physical Exam The patient is well-nourished and well-developed with no distress. The patient is intubated HEENT: Normocephalic, neck supple, no carotid bruits Lungs: Clear to auscultation Cardiovascular: Regular rate and region, S1, S2, no murmurs Abdomen: Soft, nontender, normal bowel sounds MENTAL STATUS: Responsive to strong painful stimuli CRANIAL NERVES: Pupils are equal, round and reactive, very small. There are corneal reflexes and doll's eyes phenomenon. No signs of facial weakness. There are gagging or coughing reflexes SENSATION: Responsive to stroke painful stimuli MOTOR: Normal tone in the upper and lower extremity. Normal muscle bulk. No fasciculations. No spontaneous movement. REFLEXES: Deep tendon reflexes are symmetrical. No pathological reflexes. CEREBELLAR/COORDINATION: Deferred GAIT/STATION: deferred. Labs/Diagnostic Data Labs Test 09/07/25 15:46 09/07/25 14:51 09/07/25 11:35 09/07/25 11:10 Range/Units Lactic Acid Level 0.9 0.4-2.0 mmol/L Blood Gas Specimen Type Arterial Blood Gas Sample Site Left radial Blood Gas Patient Temperature 37.0 Arterial Blood Date Drawn [id number] Arterial Blood pH 7.450 7.350-7.450 Arterial Blood Partial Pressure CO2 28.2 L 35.0-48.0 mmHg Arterial Blood Partial Pressure O2 97.3 83.0-108.0 mmHg Arterial Blood HCO3 19.2 L 21.0-28.0 mmol/L Arterial Blood Oxygen Saturation 97.2 94.0-98.0 % Arterial Blood Base Excess -3.4 L -2.0-3.0 mmol/L Arterial Blood Oxyhemoglobin 96.7 94.0-98.0 % Arterial Blood Carboxyhemoglobin 0.3 L 0.5-1.5 % Arterial Blood Methemoglobin 0.2 0.0-1.5 % Ramses Test Modified Blood Gas Total Hemoglobin 13.80 13.5-17.5 g/dL Blood Gas Set Respiration Rate 16.0 Blood Gas Modality Vent - ac FiO2 % 30.0 Blood Gas Tidal Volume 500.0 Blood Gas PEEP or CPAP 5.0 Test 09/07/25 04:00 09/06/25 08:35 Range/Units White Blood Count 7.2 # 4.4-10.8 10^3/uL Red Blood Count 4.10 L 4.5-5.90 10^6/uL Hemoglobin 13.0 L 13.5-17.5 g/dL Hematocrit 37.0 L 41.0-53.0 % Mean Corpuscular Volume 90.4 80.0-100.0 fL Mean Corpuscular Hemoglobin 31.7 28.0-32.0 pg Mean Corpuscular Hemoglobin Concent 35.1 32.0-36.0 g/dL Red Cell Distribution Width 14.6 H 11.8-14.3 % Platelet Count 262 140-450 10^3/uL Mean Platelet Volume 8.2 6.9-10.8 fL Neutrophils (%) (Auto) 76.6 37.0-80.0 % Lymphocytes (%) (Auto) 12.3 10.0-50.0 % Monocytes (%) (Auto) 10.9 0.0-12.0 % Eosinophils (%) (Auto) 0.1 0.0-7.0 % Basophils (%) (Auto) 0.1 0.0-2.0 % Neutrophils # (Auto) 5.5 1.6-8.6 10 ^3/uL Lymphocytes # (Auto) 0.9 0.4-5.4 10 ^3/uL Monocytes # (Auto) 0.8 0-1.3 10 ^3/uL Eosinophils # (Auto) 0 0-0.8 10 ^3/uL Basophils # (Auto) 0 0-0.2 10 ^3/uL Nucleated Red Blood Cells 0.0 % Magnesium Level 2.1 1.6-2.6 mg/dL Total Bilirubin 0.4 0.2-1.0 mg/dL Direct Bilirubin 0.2 <0.3 mg/dL Aspartate Amino Transferase (AST) 28 13-40 U/L Alanine Aminotransferase (ALT) 11 7-40 U/L Alkaline Phosphatase 44 L 46-116 U/L Total Protein 6.4 5.7-8.2 g/dL Albumin 4.0 3.2-4.8 g/dL Thyroid Stimulating Hormone (TSH) 0.86 0.55-4.78 uIU/mL Urine Mucus Few None Seen Urine Opiates Screen Neg NEGATIVE Urine Fentanyl Screen Neg NEGATIVE Urine Barbiturates Screen Neg NEGATIVE Urine Phencyclidine Screen Neg NEGATIVE Urine Amphetamines Screen Neg NEGATIVE Urine Benzodiazepines Screen Pos NEGATIVE Urine Cocaine Screen Neg NEGATIVE Urine Cannabinoids Screen Pos NEGATIVE Microbiology Date/Time Source Procedure Growth Status 09/06/25 18:27 Nose MRSA Screen - Final Complete 09/06/25 08:35 Urine - [place] Urine Culture - Preliminary No growth Resulted 09/06/25 08:05 Blood Blood Culture - Preliminary NO GROWTH AFTER 24 HOURS OF INCUBATION. Resulted 09/06/25 07:39 Sputum Gram Stain Pending Resulted 09/06/25 07:39 Sputum Respiratory Culture - Preliminary Resulted Assessment Status epileptics General realized seizures Passing out [id number], Syncope Partial complex seizure Tremor in both upper extremities Essential tremors Rule out Parkinson's disease Rule out medication effects Plan/Recommendation Monitoring Supportive treatment EEG Daughter is to get MR brain scan reports from the [facility] ( was obtained in 06/2025) Follow up for labs Keppra 1000 mg IV b.i.d. for now Ativan for seizure breakthrough Not treatment for the tremors/Parkinson's disease at this time Fang's prophylaxis DVT prophylaxis More history of the seizure, tremors once he is mentally improved More recommendation per clinical course Prophylaxis: Guarded Critical care time spent 55 minutes This medical document was created using an electronic medical record system with [employer] computerized dictation system. Although this document has been carefully reviewed, there may still be some phonetic and typographical errors. These areas are purely typographical due to imperfections of the software programs, and do not reflect any compromise in the patient's medical care. Plan discussed with: Spouse, Daughter, Other EMIGDIO THOMPSON MD Sep 07, 2025 16:04
[2025-09-07 16:05] LABS: Anion Gap 10 (5-15); Calcium 9.0 mg/dL (8.7-10.4); Carbon Dioxide 23 mmol/L (20-31)
[2025-09-07 16:06] LABS: Sodium 136 mmol/L (136-145)
[2025-09-07 16:09] LABS: Urine Protein, UAD TRACE (Negative)
[2025-09-07 16:10] LABS: BUN/Creatinine Ratio 10.4 (10.0-20.0); Glucose 104 mg/dL (74-106)
[2025-09-07 16:20] LABS: Blood Urea Nitrogen 7 mg/dL (9-23)
--- NOTE | 2025-09-07 20:46 | DVHSR ---
APPROVED REPORT EXAM: Two-dimensional and M-mode echocardiogram with Doppler and color Doppler. Blood Pressure: 110/69 mmHg INDICATION Positive troponins RISK FACTORS Height: 6'1", Weight: 171 DIMENSIONS LVDd 4.6 (3.8-5.7cm) LA (2D) 3.3 (1.9-4.0cm) Aortic Root 3.9 (2.0-3.7cm) LVDs 3.0 (2.5-4.0cm) LA (MM) (1.9-4.0cm) Aortic Cusp Exc 2.2 (1.5-2.0cm) EF (%) 64.0 (55-70%) Rt. Atrium 3.0 (1.9-4.0cm) Asc. Aorta cm IVSd 1.2 (0.7-1.1cm) RV (D) (1.8-2.4cm) PWd 1.1 (0.7-1.1cm) Mitral Valve Mitral Mitral Stenosis E/A ratio 0.0 2D MVA cm2 Aortic Valve Aortic Valve Aortic Stenosis LVOT Diameter 2.3 (1.8-2.4cm) Doppler SANDY cm2 Other Information Quality : Technically Limited Rhythm : Technically limited study due to body habitus, patient lying flat and on vent. Conclusion MODERATELY DILATED RV AND IS HYPOKINETIC DYSKINESIS OF IVS LV EF IS 65% AND IS NORMAL NORMAL VALVES NO EFFUSION
[2025-09-07] MEDS: Vital High Protein 1liter Bottle GT SCH (21:47)
[2025-09-07] MEDS: PIPERACILLIN-TAZOB 3.375GM 100 ML IV SCH (21:47)
--- NOTE | 2025-09-07 22:13 | DVHINCON2 ---
Date Seen: Sep 07, 2025 Referring Physician Landon Reason for Consultation Elevated troponin History of Present Illness This is a 65-year-old male with PMH of recent diagnosis seizures, GERD, HLD, HTN presents to the hospital with active seizures. Patient currently intubated therefore information gathering mainly from chart review and at bedside. Apparently patient had 4 witnessed seizures in the ER and was not returned to baseline was seemed to be hypoxic and therefore intubated. Per patient had 3 previous seizures at home was recently diagnosed with seizures just a couple of months prior and [place]. Denies any significant cardiac history besides HTN in HLD. She does endorse that he has never mentioned anything about chest pain palpitations no shortness of breath and is otherwise fairly healthy. On further evaluation patient found to have mildly elevated troponin of 74 overnight trending to 474. EKG reviewed and shows sinus bradycardia, no acute ST and T-wave abnormalities. Cardiology was consulted at this time. Past Medical History As stated above Past Surgical History No previous cardiac surgeries Allergies: Coded Allergies: NO KNOWN ALLERGIES (Unverified , 12/29/18) Current Medications Current Medications Medications (Trade) Dose Ordered Sig/Keshawn Route PRN Reason Start Time Stop Time Status Last Admin Piperacillin Sod/ Tazobactam Sod 100 ml @ 25 mls/hr Q6HR IV 09/06/25 18:00 09/07/25 12:43 Levetiracetam 100 ml @ 400 mls/hr BID IV 09/06/25 22:00 09/07/25 11:18 Enoxaparin Sodium (Lovenox) 40 mg DAILY SC 09/07/25 10:00 09/07/25 11:19 Norepinephrine Bitartrate 250 ml @ 3.75 mls/hr Q24H IV 09/06/25 19:45 09/06/25 19:45 Dopamine HCl/ Dextrose 250 ml @ 14.681 mls/ hr Q17H2M IV 09/06/25 20:15 09/06/25 23:28 DC 09/06/25 20:20 Dopamine HCl/ Dextrose 250 ml @ 14.681 mls/ hr Q17H2M IV 09/06/25 23:30 09/06/25 23:35 Lorazepam (Ativan Inj) 1 mg Q2HPRN PRN IV SEIZURES 09/07/25 05:45 Potassium Chloride 100 ml @ 50 mls/hr Q2H IV 09/07/25 05:45 09/07/25 11:44 DC 09/07/25 11:29 Review of Systems Not done, patient intubated and sedated Vital Signs Vital Signs Date Time Temp Pulse Resp B/P (MAP) Pulse Ox O2 Delivery O2 Flow Rate FiO2 09/07/25 14:41 137/63 09/07/25 14:05 56 17 97 30 09/07/25 07:00 99.0 210.2 09/07/25 05:53 Mechanical Ventilator+ 09/06/25 06:55 2 Physical Exam GENERAL:Intubated on ventilator. EYES: PERRL, EOMI. Anicteric. HENT: Moist mucous membranes. LUNGS: Decreased breath sounds. CARDIOVASCULAR: Regular rate and rhythm. ABDOMEN: Soft, nontender and nondistended. EXTREMITIES: No edema. SKIN: Warm, dry. Labs/Diagnostic Data Labs Test 09/07/25 11:35 09/07/25 11:10 09/07/25 04:00 09/06/25 08:35 Range/Units Lactic Acid Level 0.9 0.4-2.0 mmol/L Blood Gas Specimen Type Arterial Blood Gas Sample Site Left radial Blood Gas Patient Temperature 37.0 Arterial Blood Date Drawn [id number] Arterial Blood pH 7.450 7.350-7.450 Arterial Blood Partial Pressure CO2 28.2 L 35.0-48.0 mmHg Arterial Blood Partial Pressure O2 97.3 83.0-108.0 mmHg Arterial Blood HCO3 19.2 L 21.0-28.0 mmol/L Arterial Blood Oxygen Saturation 97.2 94.0-98.0 % Arterial Blood Base Excess -3.4 L -2.0-3.0 mmol/L Arterial Blood Oxyhemoglobin 96.7 94.0-98.0 % Arterial Blood Carboxyhemoglobin 0.3 L 0.5-1.5 % Arterial Blood Methemoglobin 0.2 0.0-1.5 % Ramses Test Modified Blood Gas Total Hemoglobin 13.80 13.5-17.5 g/dL Blood Gas Set Respiration Rate 16.0 Blood Gas Modality Vent - ac FiO2 % 30.0 Blood Gas Tidal Volume 500.0 Blood Gas PEEP or CPAP 5.0 White Blood Count 7.2 # 4.4-10.8 10^3/uL Red Blood Count 4.10 L 4.5-5.90 10^6/uL Hemoglobin 13.0 L 13.5-17.5 g/dL Hematocrit 37.0 L 41.0-53.0 % Mean Corpuscular Volume 90.4 80.0-100.0 fL Mean Corpuscular Hemoglobin 31.7 28.0-32.0 pg Mean Corpuscular Hemoglobin Concent 35.1 32.0-36.0 g/dL Red Cell Distribution Width 14.6 H 11.8-14.3 % Platelet Count 262 140-450 10^3/uL Mean Platelet Volume 8.2 6.9-10.8 fL Neutrophils (%) (Auto) 76.6 37.0-80.0 % Lymphocytes (%) (Auto) 12.3 10.0-50.0 % Monocytes (%) (Auto) 10.9 0.0-12.0 % Eosinophils (%) (Auto) 0.1 0.0-7.0 % Basophils (%) (Auto) 0.1 0.0-2.0 % Neutrophils # (Auto) 5.5 1.6-8.6 10 ^3/uL Lymphocytes # (Auto) 0.9 0.4-5.4 10 ^3/uL Monocytes # (Auto) 0.8 0-1.3 10 ^3/uL Eosinophils # (Auto) 0 0-0.8 10 ^3/uL Basophils # (Auto) 0 0-0.2 10 ^3/uL Nucleated Red Blood Cells 0.0 % Sodium Level 136 # 136-145 mmol/L Potassium Level 2.8 L 3.5-5.1 mmol/L Chloride Level 102 98-107 mmol/L Carbon Dioxide Level 24 20-31 mmol/L Anion Gap 10 5-15 Blood Urea Nitrogen 6 L 9-23 mg/dL Creatinine 0.76 0.700-1.30 mg/dL Glomerular Filtration Rate Calc 99 >90 mL/min BUN/Creatinine Ratio 7.9 L 10.0-20.0 Serum Glucose 102 74-106 mg/dL Calcium Level 9.0 8.7-10.4 mg/dL Magnesium Level 2.1 1.6-2.6 mg/dL Total Bilirubin 0.4 0.2-1.0 mg/dL Direct Bilirubin 0.2 <0.3 mg/dL Aspartate Amino Transferase (AST) 28 13-40 U/L Alanine Aminotransferase (ALT) 11 7-40 U/L Alkaline Phosphatase 44 L 46-116 U/L Troponin I High Sensitivity 474 *H </=54 ng/L Total Protein 6.4 5.7-8.2 g/dL Albumin 4.0 3.2-4.8 g/dL Thyroid Stimulating Hormone (TSH) 0.86 0.55-4.78 uIU/mL Urine Color Light-yellow Yellow Urine Clarity Clear Clear Urine pH 6.0 5.0-9.0 Urine Specific [place] 1.017 1.001-1.035 Urine Protein Negative Negative Urine Ketones 1+ H Negative Urine Blood 2+ H Negative /uL Urine Nitrite Negative Negative Urine Bilirubin Negative Negative Urine Urobilinogen Normal Negative mg/dL Urine Leukocyte Esterase Negative Negative /uL Urine RBC 7 0 - 3 /hpf Urine Microscopic WBC 3 0-3 /HPF Urine Squamous Epithelial Cells None seen <5 /hpf Urine Bacteria None seen None Seen /hpf Urine Mucus Few None Seen Urine Glucose 3+ H Normal mg/dL Urine Opiates Screen Neg NEGATIVE Urine Fentanyl Screen Neg NEGATIVE Urine Barbiturates Screen Neg NEGATIVE Urine Phencyclidine Screen Neg NEGATIVE Urine Amphetamines Screen Neg NEGATIVE Urine Benzodiazepines Screen Pos NEGATIVE Urine Cocaine Screen Neg NEGATIVE Urine Cannabinoids Screen Pos NEGATIVE Microbiology Date/Time Source Procedure Growth Status 09/06/25 18:27 Nose MRSA Screen - Final Complete 09/06/25 08:35 Urine - [place] Urine Culture - Preliminary No growth Resulted 09/06/25 08:05 Blood Blood Culture - Preliminary NO GROWTH AFTER 24 HOURS OF INCUBATION. Resulted 09/06/25 07:39 Sputum Gram Stain Pending Resulted 09/06/25 07:39 Sputum Respiratory Culture - Preliminary Resulted Assessment Elevated troponins. Sinus bradycardia. Hypokalemia. Seizures. HLD. HTN. Plan/Recommendation I agree with your ongoing assessment and care of plan. Patient has been seen by Nelson Santiago NP on my behalf, him and I discussed the plan with the patient. Elevated troponin likely in setting of seizure, episode hypoxia in the ER. Follow up echocardiogram. May start on aspirin if cleared by Neurology. Patient may benefit from an ischemic workup in the future, likely on outpatient basis. On dopamine drip at 3 mcg/kg/min. Patient is heavily sedated. Check TSH. Monitoring replace electrolytes, keep K greater than 4. Resume statin once tolerating p.o.. Additional plan as per the hospital course. Plan discussed with: Other NYHA Physical activity limitations: NA Date of Service: Sep 07, 2025 Billing Provider: MOISES HANKINS MD Cardiology Common Codes: 29600-KTCCUMA INP/OBS CARE (High), 56052-LDGZVTFZ CARE 30-74 MIN, 96188-FLLPDYFP CARE-EACH +30MIN MOISES HANKINS MD Sep 07, 2025 14:51
[2025-09-08] VITALS (106 sets, daily range): BP systolic 91–166; BP diastolic 51–87; PULSE 47–100; RESP 13–20; TEMP 97–99.3; O2SAT 97–100
[2025-09-08 04:21] LABS: Hematocrit 36.2 % (41.0-53.0); Hemoglobin 12.8 g/dL (13.5-17.5); Mean Corpuscular Hemoglobin 32.4 pg (28.0-32.0); Mean Corpuscular Volume 91.6 fL (80.0-100.0); Nucleated Red Blood Cells % 0.1 %
[2025-09-08 04:37] LABS: Albumin 3.7 g/dL (3.2-4.8); Alkaline Phosphatase 50 U/L (46-116); Anion Gap 8 (5-15); BUN/Creatinine Ratio 9.7 (10.0-20.0); Calcium 9.0 mg/dL (8.7-10.4); Carbon Dioxide 25 mmol/L (20-31); Chloride 102 mmol/L (98-107); Magnesium 2.1 mg/dL (1.6-2.6); Potassium 3.6 mmol/L (3.5-5.1); Total Protein 5.8 g/dL (5.7-8.2)
[2025-09-08 04:38] LABS: Bilirubin, Total 0.4 mg/dL (0.2-1.0)
--- NOTE | 2025-09-08 04:53 | DVH ---
CHEST RADIOGRAPH Indication: on vent Technique: 1 view Comparison: XY CHEST PORTABLE on DOS: 09/07/25, XY CHEST PORTABLE on DOS: 09/06/25 FINDINGS: Lines and Tubes: Unchanged. Lungs/Pleura: Unchanged. Cardiomediastinum: Unchanged. IMPRESSION: No significant change from the previous study. Stable support devices. Mild [id number]-right infrahilar opacities remain.
[2025-09-08 04:58] LABS: Glucose 115 mg/dL (74-106); Sodium 135 mmol/L (136-145)
[2025-09-08 04:59] LABS: Alanine Aminotransferase < 9 U/L (7-40); Blood Urea Nitrogen 7 mg/dL (9-23)
--- NOTE | 2025-09-08 04:59 | DVH ---
CHEST RADIOGRAPH Indication: pna Technique: Single frontal view of the chest was obtained COMPARISON: XY CHEST XRAY 1 VIEW on DOS: 09/08/25, XY CHEST PORTABLE on DOS: 09/07/25, XY CHEST PORTABLE on DOS: 09/06/25 FINDINGS: Lines and Tubes: Endotracheal tube and enteric catheter in satisfactory position. Lungs: Congestion Pleura: No effusion.No pneumothorax. Cardiomediastinal contours: Cardiomegaly Bones: Unremarkable IMPRESSION: Endotracheal tube and enteric catheter in satisfactory position. No significant interval change
[2025-09-08 08:32] LABS: Base Excess 0.0 mmol/L (-2.0-3.0)
[2025-09-08] MEDS: PANTOPRAZOLE 40 MG/10 ML VIAL INJ IV SCH (10:30)
--- NOTE | 2025-09-08 19:10 | DVHPNRES ---
Progress Note Date Seen: Sep 08, 2025 Resident Creating Document: LAURA BOND RESIDENT Medical Necessity Reason Pt with a Central, PICC or Fol: No Subjective Review of Systems Patient is a 65-year-old male with past medical history of anxiety, GERD, seizure disorder. as per patient had a seizure at 2:00 a.m. on 09/06/2025. Which was followed by another tonic-clonic seizure 20 minutes later. For which called 911. Upon arrival in the ER patient had another for seizures which did not turn to baseline for 1 hour. states that patient's last seizure was on August 04. Patient was intubated in the ER patient was shaking and had altered level of consciousness. states that patient did not have any recent illnesses, flu-like symptoms, sick contacts. As per patient is compliant with medications for seizure( Depakote). past surgical history: Denies any surgeries Family history: Cancer in sister, uncle Social history: Smokes marijuana, denies any cigarette, alcohol, drug use. Lives with: Spouse, at home 09/07/2025: Patient seen in the ICU. as per patient did not experience any chest pain, palpitations, shortness of breath. Overnight patient's heart rate did drop to the 30s for which dopamine was . Patient has elevated troponins, cardiology was consulted. Patient has sinus bradycardia. potassium was replaced. Started vital HP feeding. Aspirin given. Patient is too unstable to transfer. Neurology on board, As per cardiology heparin drip and aspirin to be held 09/08/2025: Patient seen and examined in the ICU. Patient was intubated and sedated, according to family patient was having seizure for last two years, denies any prior head trauma, EEG pending. Objective vital signs Vital Sign Date Time Temp Pulse Resp B/P (MAP) Pulse Ox O2 Delivery O2 Flow Rate FiO2 09/08/25 18:51 147/77 09/08/25 18:15 98.4 71 15 98 209.1 09/08/25 18:00 30 09/08/25 18:00 Mechanical Ventilator+ Total Intake and Output 09/07/25 09/07/25 09/08/25 15:00 23:00 07:00 Intake Total 695.107 ml 507.663 ml 416.663 ml Output Total 350 ml 475 ml Balance 695.107 ml 157.663 ml -58.337 ml medications Current Medications Medications Dose Ordered Sig/Keshawn Route Start Time Stop Time Status Last Admin Dose Admin Propofol 100 ml @ 3 mls/hr Q24H IV 09/06/25 07:30 09/08/25 18:51 24 MLS/HR Midazolam HCl 100 ml @ 1 mls/hr Q24H IV 09/06/25 07:30 09/08/25 14:38 6 MLS/HR Levetiracetam 100 ml @ 400 mls/hr BID IV 09/06/25 22:00 09/08/25 09:54 400 MLS/HR Sodium Chloride 10 ml Q8HR IV 09/06/25 14:00 09/08/25 13:29 10 ML Docusate Sodium 100 mg BIDPRN PRN PO 09/06/25 12:30 Acetaminophen 650 mg Q6HP PRN PO 09/06/25 12:30 Enoxaparin Sodium 40 mg DAILY SC 09/07/25 10:00 09/08/25 10:31 40 MG Dopamine HCl/ Dextrose 250 ml @ 14.681 mls/ hr Q17H2M IV 09/06/25 23:30 09/08/25 06:11 8.809 MLS/HR Lorazepam 1 mg Q2HPRN PRN IV 09/07/25 05:45 Aspirin 81 mg DAILY NG 09/08/25 10:00 09/08/25 10:31 81 MG Enteral Nutritional Formula 1,000 ml 30ML/HR GT 09/07/25 15:30 09/07/25 21:47 1,000 ML Pantoprazole Sodium 40 mg DAILY IV 09/08/25 10:00 09/08/25 10:30 40 MG Piperacillin Sod/ Tazobactam Sod 100 ml @ 25 mls/hr Q8HR IV 09/07/25 22:00 09/08/25 13:29 25 MLS/HR Examination Patient lying in bed, under sedoanalgesia due to mechanical ventilation General: RASS -3, afebrile, mucosae are moist Cardiovascular: Normal S1 and S2. No murmurs, gallops or rubs Respiratory: Mechanically assisted ventilation, equal bilateral airway entree. Clear lung sounds on auscultation Abdomen: Soft, nontender, no organomegaly, normal bowel sounds MSK/skin: Mobilization of limbs cannot be evaluated. Skin is dry and warm Neurological: Orientation cannot be assessed. No apparent motor no sensitive deficits. Pupils are isocoric and reactive laboratory and microbiology Laboratory Tests 09/08/25 03:50 Test 09/08/25 03:50 Range/Units Serum Glucose 115 H 74-106 mg/dL Microbiology Date/Time Source Procedure Growth Status 09/06/25 18:27 Nose MRSA Screen - Final Complete 09/06/25 08:35 Urine - [place] Urine Culture - Final Complete 09/06/25 08:05 Blood Blood Culture - Preliminary NO GROWTH AFTER 48 HOURS OF INCUBATION. Resulted 09/06/25 07:39 Sputum Gram Stain - Final Resulted 09/06/25 07:39 Sputum Respiratory Culture - Preliminary Resulted Problem List/Assessment/Plan Problem List/Assessment/Plan Neurology # metabolic encephalopathy due to seizure # Status epilepticus # Generalized tonic-clonic seizures # Syncope # Partial complex seizure # Tremor in both upper extremities # Essential tremors # Rule out Parkinson's disease - sedated - Keppra IV b.i.d. - Depakote home medication - neurology consult, ordered EEG - head CT showed NO ACUTE INTRACRANIAL ABNORMALITY SEEN. Cardiology # NSTEMI type 2, type 1 not ruled out # Hypertension # Hyperlipidemia # sinus bradycardia - cardiology consulted - As per cardio, heparin and asprin to be held - dopamine drip for bradycardia - echo 09/07/25: EF 65%, moderately dilated RV and is hypokinetic - elevated troponins 74> 818> 684> 516 - IV hydralazine p.r.n. for hypertension Respiratory # acute respiratory failure secondary to pneumonia on mechanical ventilation # Possible aspiration pneumonia - IV Zosyn - mechanical ventilation mode AC, FiO2 30, peep 5, VT 500, RR 16 Gastroenterology # history of GERD - GI prophylaxis Protonix - Reglan Electrolytes # Hypokalemia - replaced DVT prophylaxis: Lovenox PPI prophylaxis: Protonix Invasive access Ho[place] catheter 09/06 Endotracheal tube 09/06 Rt Femoral central line 09/06 Drips Dopamine Versed Propofol Critical Care time spent 81 minutes including patient care, chart review and updating family, excluding procedure. Case discussed with Dr. Hatch Plan discussed with: Spouse, Daughter My Orders My Orders Orders - LAURA BOND RESIDENT Procedure Category Date Status Time Respiratory Misc. RT 09/08/25 Transmitted Order 17:40 Complete Blood Count LAB 09/09/25 Verified 04:00 Comprehensive LAB 09/09/25 Verified Metabolic Panel 04:00 Hydralazine Injection PHA 09/08/25 Verified (Apresoline Inject 19:15 Dietary Evaluation Review Comments: 1. TF Vital high Protein @60ml/hr providing 126g Protein 1440kcal, 1204ml free water, meeting pt's needs @ 136% Protein, 93% energy 2. Rassess when Pt is off vent. Expected Outcomes/Goals: Improved nutrition related lab profile, graduaul weight gain Date of Service: Sep 08, 2025 Billing Provider: OMI HATCH MD Common Visit Codes: 30515-[id number] CARE 30-74 MIN, [id number] CARE-EACH +30MIN LAURA BOND RESIDENT Sep 08, 2025 19:10 OMI HATCH MD Sep 09, 2025 13:53
[2025-09-08] MEDS: hydrALAZINE HCL 20 MG/ML VL IV PRN (22:02)
--- NOTE | 2025-09-08 23:42 | DVHPN2 ---
Progress Note - Dictate Date Seen: Sep 08, 2025 Medical Necessity Reason Pt with a Central, PICC or Fol: No Subjective Patient was seen and evaluated in follow up in the ICU. Patient is intubated and sedated on ventilator. 30% FiO2. Overnight patient's heart rate dropped to the 30s. Chest x-ray shows endotracheal tube and enteric catheter in satisfactory position. No significant interval change. Echoaortogram is ordered/pending. vital signs Vital Sign Date Time Temp Pulse Resp B/P (MAP) Pulse Ox O2 Delivery O2 Flow Rate FiO2 09/08/25 22:20 56 16 155/51 (85) 98 30 09/08/25 21:00 98.4 209.1 09/08/25 20:00 Mechanical Ventilator+ Total Intake and Output 09/07/25 09/07/25 09/08/25 15:00 23:00 07:00 Intake Total 695.107 ml 507.663 ml 480.472 ml Output Total 350 ml 475 ml Balance 695.107 ml 157.663 ml 5.472 ml medications Current Medications Medications Dose Ordered Sig/Keshawn Route Start Time Stop Time Status Last Admin Dose Admin Propofol 100 ml @ 3 mls/hr Q24H IV 09/06/25 07:30 09/08/25 18:51 24 MLS/HR Midazolam HCl 100 ml @ 1 mls/hr Q24H IV 09/06/25 07:30 09/08/25 14:38 6 MLS/HR Levetiracetam 100 ml @ 400 mls/hr BID IV 09/06/25 22:00 09/08/25 21:53 400 MLS/HR Sodium Chloride 10 ml Q8HR IV 09/06/25 14:00 09/08/25 21:54 10 ML Docusate Sodium 100 mg BIDPRN PRN PO 09/06/25 12:30 Acetaminophen 650 mg Q6HP PRN PO 09/06/25 12:30 Enoxaparin Sodium 40 mg DAILY SC 09/07/25 10:00 09/08/25 10:31 40 MG Dopamine HCl/ Dextrose 250 ml @ 14.681 mls/ hr Q17H2M IV 09/06/25 23:30 09/08/25 06:11 8.809 MLS/HR Lorazepam 1 mg Q2HPRN PRN IV 09/07/25 05:45 Aspirin 81 mg DAILY NG 09/08/25 10:00 09/08/25 10:31 81 MG Enteral Nutritional Formula 1,000 ml 30ML/HR GT 09/07/25 15:30 09/08/25 20:16 1,000 ML Pantoprazole Sodium 40 mg DAILY IV 09/08/25 10:00 09/08/25 10:30 40 MG Piperacillin Sod/ Tazobactam Sod 100 ml @ 25 mls/hr Q8HR IV 09/07/25 22:00 09/08/25 21:46 25 MLS/HR Hydralazine HCl 10 mg Q6HP PRN IV 09/08/25 19:15 09/08/25 22:02 10 MG objective GENERAL: Ill appearing, intubated on ventilator. EYES: PERRL, EOMI. Anicteric. HENT: Moist mucous membranes. LUNGS: Decreased breath sounds. CARDIOVASCULAR: Regular rate and rhythm. ABDOMEN: Soft, nontender and nondistended. EXTREMITIES: No edema. SKIN: Warm, dry. laboratory and microbiology Laboratory Tests 09/08/25 03:50 Test 09/08/25 03:50 Range/Units Serum Glucose 115 H 74-106 mg/dL Problem List Elevated troponins. Sinus bradycardia. Hypokalemia. Seizures. HLD. HTN. Assessment/Plan Continued all current supportive medical care. Echocardiogram. Aspirin. DVT and GI prophylactics. IV Hydralazine for SBP >150. IV antibiotics as ordered. Additional plan as per the hospital course. Critical care time of 45 minutes provided to include time spent evaluation of patient at bedside, when appropriate patient/family education for diagnosis, treatment plan, review of pertinent medical information and discussion of care with specialty providers and PCP. Mechanical ventilator parameters, treatment and adjustments have personally been reviewed by me and treatment plan by proof technician helper has also been reviewed. Dietary Evaluation Review Comments: 1. TF Vital high Protein @60ml/hr providing 126g Protein 1440kcal, 1204ml free water, meeting pt's needs @ 136% Protein, 93% energy 2. Rassess when Pt is off vent. Expected Outcomes/Goals: Improved nutrition related lab profile, graduaul weight gain Plan discussed with: Other MOISES HANKINS MD Sep 08, 2025 23:42
[2025-09-09] VITALS (105 sets, daily range): BP systolic 82–150; BP diastolic 55–89; PULSE 57–120; RESP 13–28; TEMP 95.9–100; O2SAT 95–100
--- NOTE | 2025-09-09 03:20 | DVH ---
CHEST RADIOGRAPH Indication: pna Technique: 1 view Comparison: XY CHEST PORTABLE on DOS: 09/08/25, XY CHEST XRAY 1 VIEW on DOS: 09/08/25, XY CHEST PORTABLE on DOS: 09/07/25, XY CHEST PORTABLE on DOS: 09/06/25 FINDINGS: Lines and Tubes: Unchanged. Lungs/Pleura: Unchanged. Cardiomediastinum: Unchanged. Other: Unchanged osseous structures. IMPRESSION: No change from the previous day. Stable support devices. Mild left basilar opacities remain.
[2025-09-09 04:39] LABS: Hematocrit 36.6 % (41.0-53.0); Hemoglobin 12.9 g/dL (13.5-17.5); Mean Corpuscular Hemoglobin 31.7 pg (28.0-32.0); Mean Corpuscular Volume 90.2 fL (80.0-100.0); Nucleated Red Blood Cells % 0.0 %
[2025-09-09 05:01] LABS: Alanine Aminotransferase 12 U/L (7-40); Alkaline Phosphatase 60 U/L (46-116); Anion Gap 11 (5-15); BUN/Creatinine Ratio 10.6 (10.0-20.0); Calcium 8.8 mg/dL (8.7-10.4); Carbon Dioxide 25 mmol/L (20-31); Chloride 101 mmol/L (98-107); Magnesium 2.1 mg/dL (1.6-2.6); Potassium 3.6 mmol/L (3.5-5.1); Sodium 137 mmol/L (136-145); Total Protein 5.8 g/dL (5.7-8.2)
[2025-09-09 05:02] LABS: Albumin 3.7 g/dL (3.2-4.8); Bilirubin, Total 0.5 mg/dL (0.2-1.0); Blood Urea Nitrogen 7 mg/dL (9-23); Glucose 106 mg/dL (74-106)
--- NOTE | 2025-09-09 08:05 | ECG ---
[facility] Test Date: 2025-09-07 Test Time: 17:45:56 Pat Name: SHI ARELLANO Department: ICU Room: [address] [place] [address] A Gender: M Eyeglass Frames Inspector: OXANA : 1960 Requested By: SELIN CHAPMAN Order Number: [id number] Reading MD: Santiago Bridges Measurements Intervals Ruso Rate: 54 P: -15 MT: 139 QRS: -65 QRSD: 108 T: 35 QT: 434 QTc: 412 Interpretive Statements Sinus rhythm Incomplete left bundle branch block Electronically Signed On 09-09-2025 17:20:18 PST by Santiago Bridges Please click the below link to view image of tracing.
[2025-09-09 08:32] LABS: Base Excess 0.3 mmol/L (-2.0-3.0)
--- NOTE | 2025-09-09 08:45 | DVHPN2 ---
Progress Note - Dictate Date Seen: Sep 09, 2025 Medical Necessity Reason Pt with a Central, PICC or Fol: No Subjective Mr. Morgan is a 65 years old left-handed gentleman with a history of seizure, GERD, anxiety, he was brought to the [facility] on 09/06/2025 with a chief complaint of seizure activity. I have seen and examined the patient, discussed with his nurse, he is intubated, sedated, slightly responsive to stroke painful stimuli, but he open his eyes during airway suction, but he is nonresponsive to visual threat or verbal stimulation RN note 09/08/25:0919: AT BEDSIDE UPDATED ON PATIENT'S STATUS RECEIVED PAPERWORK FROM [facility]. PER PATIENT HAD AN MRI SCHEDULED WITH [facility] BUT PATIENT MISSED THE APPOINTMENT. WILL INFORM MD. But I did not find the paperwork Versed 6 mg/hour, propofol 25 mcg/minute WBC/HB/PLT/MCV, 09/07/25: 7.2/13/262/90.4 CBC, 09/07/25 0829: Unremarkable K, 09/07/2025: 2.8 Lactic acid, 09/06/2025: 8.1, 4.3 Liver function tests, 09/07/2025: Unremarkable CT head, 09/06/2025: NO ACUTE INTRACRANIAL ABNORMALITY SEEN vital signs Vital Sign Date Time Temp Pulse Resp B/P (MAP) Pulse Ox O2 Delivery O2 Flow Rate FiO2 09/09/25 07:46 64 16 92/56 (68) 97 30 09/09/25 07:30 Mechanical Ventilator+ 09/09/25 06:45 98.8 209.8 Total Intake and Output 09/08/25 09/08/25 09/09/25 15:00 23:00 07:00 Intake Total 518.281 ml 668.726 ml 641.491 ml Output Total 600 ml 875 ml Balance 518.281 ml 68.726 ml -233.509 ml medications Current Medications Medications Dose Ordered Sig/Keshawn Route Start Time Stop Time Status Last Admin Dose Admin Propofol 100 ml @ 3 mls/hr Q24H IV 09/06/25 07:30 09/09/25 00:33 15 MLS/HR Midazolam HCl 100 ml @ 1 mls/hr Q24H IV 09/06/25 07:30 09/08/25 14:38 6 MLS/HR Levetiracetam 100 ml @ 400 mls/hr BID IV 09/06/25 22:00 09/08/25 21:53 400 MLS/HR Sodium Chloride 10 ml Q8HR IV 09/06/25 14:00 09/09/25 05:46 10 ML Docusate Sodium 100 mg BIDPRN PRN PO 09/06/25 12:30 Acetaminophen 650 mg Q6HP PRN PO 09/06/25 12:30 Enoxaparin Sodium 40 mg DAILY SC 09/07/25 10:00 09/08/25 10:31 40 MG Dopamine HCl/ Dextrose 250 ml @ 14.681 mls/ hr Q17H2M IV 09/06/25 23:30 09/08/25 06:11 8.809 MLS/HR Lorazepam 1 mg Q2HPRN PRN IV 09/07/25 05:45 Aspirin 81 mg DAILY NG 09/08/25 10:00 09/08/25 10:31 81 MG Enteral Nutritional Formula 1,000 ml 30ML/HR GT 09/07/25 15:30 09/08/25 20:16 1,000 ML Pantoprazole Sodium 40 mg DAILY IV 09/08/25 10:00 09/08/25 10:30 40 MG Piperacillin Sod/ Tazobactam Sod 100 ml @ 25 mls/hr Q8HR IV 09/07/25 22:00 09/09/25 05:46 25 MLS/HR Hydralazine HCl 10 mg Q6HP PRN IV 09/08/25 19:15 09/08/25 22:02 10 MG objective The patient is well-nourished and well-developed with no distress. The patient is intubated MENTAL STATUS: Subjective CRANIAL NERVES: Pupils are equal, round and reactive, very small. There are corneal reflexes and doll's eyes phenomenon. No signs of facial weakness. There are gagging or coughing reflexes SENSATION: Responsive to stroke painful stimuli MOTOR: Normal tone in the upper and lower extremity. Normal muscle bulk. No fasciculations. No spontaneous movement. REFLEXES: Deep tendon reflexes are symmetrical. No pathological reflexes. CEREBELLAR/COORDINATION: Deferred GAIT/STATION: deferred. laboratory and microbiology Laboratory Tests 09/09/25 03:40 Test 09/09/25 03:40 Range/Units Serum Glucose 106 74-106 mg/dL Problem List Status epileptics General realized seizures Passing out [id number], Syncope Partial complex seizure Tremor in both upper extremities Essential tremors Rule out Parkinson's disease Rule out medication effects Assessment/Plan Monitoring Supportive treatment EEG MRI head Follow up for labs Keppra 1000 mg IV b.i.d. for now Ativan for seizure breakthrough Not treatment for the tremors/Parkinson's disease at this time Fang's prophylaxis DVT prophylaxis More history of the seizure, tremors once he is mentally improved More recommendation per clinical course This medical document was created using an electronic medical record system with [employer] dictation system. Although this document has been carefully reviewed, there may still be some phonetic and typographical errors. These areas are purely typographical due to imperfections of the software programs, and do not reflect any compromise in the patient's medical care. Prognosis guarded Dietary Evaluation Review Comments: 1. TF Vital high Protein @60ml/hr providing 126g Protein 1440kcal, 1204ml free water, meeting pt's needs @ 136% Protein, 93% energy 2. Rassess when Pt is off vent. Expected Outcomes/Goals: Improved nutrition related lab profile, graduaul weight gain Plan discussed with: Other Critical Care Time(min): 35 EMIGDIO THOMPSON MD Sep 09, 2025 08:45
--- NOTE | 2025-09-09 16:58 | DVHPNRES ---
Progress Note Date Seen: Sep 09, 2025 Resident Creating Document: LAURA BOND RESIDENT Medical Necessity Reason Pt with a Central, PICC or Fol: No Subjective Review of Systems Patient is a 65-year-old male with past medical history of anxiety, GERD, seizure disorder. as per patient had a seizure at 2:00 a.m. on 09/06/2025. Which was followed by another tonic-clonic seizure 20 minutes later. For which called 911. Upon arrival in the ER patient had another for seizures which did not turn to baseline for 1 hour. states that patient's last seizure was on August 04. Patient was intubated in the ER patient was shaking and had altered level of consciousness. states that patient did not have any recent illnesses, flu-like symptoms, sick contacts. As per patient is compliant with medications for seizure( Depakote). past surgical history: Denies any surgeries Family history: Cancer in sister, uncle Social history: Smokes marijuana, denies any cigarette, alcohol, drug use. Lives with: Spouse, at home 09/07/2025: Patient seen in the ICU. as per patient did not experience any chest pain, palpitations, shortness of breath. Overnight patient's heart rate did drop to the 30s for which dopamine was . Patient has elevated troponins, cardiology was consulted. Patient has sinus bradycardia. potassium was replaced. Started vital HP feeding. Aspirin given. Patient is too unstable to transfer. Neurology on board, As per cardiology heparin drip and aspirin to be held 09/08/2025: Patient seen and examined in the ICU. Patient was intubated and sedated, according to family patient was having seizure for last two years, denies any prior head trauma, EEG pending. 09/09/2025: : Patient seen and examined in the ICU. Patient was intubated and sedated, ordered MRI, pending for EEG. Objective vital signs Vital Sign Date Time Temp Pulse Resp B/P (MAP) Pulse Ox O2 Delivery O2 Flow Rate FiO2 09/09/25 16:25 85 19 101/64 (76) 100 30 09/09/25 15:15 99.9 211.8 09/09/25 14:00 Mechanical Ventilator+ Total Intake and Output 09/08/25 09/08/25 09/09/25 15:00 23:00 07:00 Intake Total 518.281 ml 668.726 ml 671.300 ml Output Total 600 ml 875 ml Balance 518.281 ml 68.726 ml -203.700 ml medications Current Medications Medications Dose Ordered Sig/Keshawn Route Start Time Stop Time Status Last Admin Dose Admin Propofol 100 ml @ 3 mls/hr Q24H IV 09/06/25 07:30 09/09/25 16:29 15 MLS/HR Midazolam HCl 100 ml @ 1 mls/hr Q24H IV 09/06/25 07:30 09/09/25 07:15 6 MLS/HR Levetiracetam 100 ml @ 400 mls/hr BID IV 09/06/25 22:00 09/09/25 09:50 400 MLS/HR Sodium Chloride 10 ml Q8HR IV 09/06/25 14:00 09/09/25 14:00 10 ML Acetaminophen 650 mg Q6HP PRN PO 09/06/25 12:30 Enoxaparin Sodium 40 mg DAILY SC 09/07/25 10:00 09/09/25 09:50 40 MG Dopamine HCl/ Dextrose 250 ml @ 14.681 mls/ hr Q17H2M IV 09/06/25 23:30 09/09/25 09:50 8.809 MLS/HR Lorazepam 1 mg Q2HPRN PRN IV 09/07/25 05:45 Aspirin 81 mg DAILY NG 09/08/25 10:00 09/09/25 09:49 81 MG Enteral Nutritional Formula 1,000 ml 30ML/HR GT 09/07/25 15:30 09/08/25 20:16 1,000 ML Pantoprazole Sodium 40 mg DAILY IV 09/08/25 10:00 09/09/25 09:50 40 MG Piperacillin Sod/ Tazobactam Sod 100 ml @ 25 mls/hr Q8HR IV 09/07/25 22:00 09/09/25 14:00 25 MLS/HR Hydralazine HCl 10 mg Q6HP PRN IV 09/08/25 19:15 09/08/25 22:02 10 MG Docusate Sodium 100 mg BIDPRN PRN GT 09/09/25 16:45 Examination Patient lying in bed, under sedoanalgesia due to mechanical ventilation General: RASS -3, afebrile, mucosae are moist Cardiovascular: Normal S1 and S2. No murmurs, gallops or rubs Respiratory: Mechanically assisted ventilation, equal bilateral airway entree. Clear lung sounds on auscultation Abdomen: Soft, nontender, no organomegaly, normal bowel sounds MSK/skin: Mobilization of limbs cannot be evaluated. Skin is dry and warm Neurological: Orientation cannot be assessed. No apparent motor no sensitive deficits. Pupils are isocoric and reactive laboratory and microbiology Laboratory Tests 09/09/25 03:40 Test 09/09/25 03:40 Range/Units Serum Glucose 106 74-106 mg/dL Microbiology Date/Time Source Procedure Growth Status 09/06/25 18:27 Nose MRSA Screen - Final Complete 09/06/25 08:35 Urine - [place] Urine Culture - Final Complete 09/06/25 08:05 Blood Blood Culture - Preliminary NO GROWTH AFTER 72 HOURS OF INCUBATION. Resulted 09/06/25 07:39 Sputum Gram Stain - Final Complete 09/06/25 07:39 Sputum Respiratory Culture - Final Complete Problem List/Assessment/Plan Problem List/Assessment/Plan Neurology # metabolic encephalopathy due to seizure # Status epilepticus # Generalized tonic-clonic seizures # Syncope # Partial complex seizure # Tremor in both upper extremities # Essential tremors # Rule out Parkinson's disease - mechanical ventilation mode AC, FiO2 30, peep 5, VT 500, RR 16 - sedated - Keppra IV b.i.d. - Depakote home medication - neurology consult, -EEG results pending - head CT showed NO ACUTE INTRACRANIAL ABNORMALITY SEEN. - MRI brain to be done tomorrow Cardiology # NSTEMI type 2, type 1 not ruled out # Hypertension # Hyperlipidemia # sinus bradycardia - cardiology consulted - As per cardio, heparin and asprin to be held - dopamine drip for bradycardia - echo 09/07/25: EF 65%, moderately dilated RV and is hypokinetic - elevated troponins 74> 818> 684> 516 - IV hydralazine p.r.n. for hypertension Respiratory # acute respiratory failure secondary to pneumonia on mechanical ventilation # Possible aspiration pneumonia - IV Zosyn - mechanical ventilation mode AC, FiO2 30, peep 5, VT 500, RR 16 Gastroenterology # history of GERD - GI prophylaxis Protonix - Reglan Electrolytes # Hypokalemia - replaced DVT prophylaxis: Lovenox PPI prophylaxis: Protonix Invasive access [place] catheter 09/06 Endotracheal tube 09/06 Rt Femoral central line 09/06 Drips Dopamine Versed Propofol Critical Care time spent 64 minutes including patient care, chart review and updating family, excluding procedure. Case discussed with Dr. Hatch Plan discussed with: Spouse My Orders My Orders Orders - LAURA BOND Procedure Category Date Status Time Respiratory Misc. RT 09/08/25 Transmitted Order 17:40 Hydralazine Injection PHA 09/08/25 In Process (Apresoline Inject 19:15 Dietary Evaluation Review Comments: 1. TF Vital high Protein @60ml/hr providing 126g Protein 1440kcal, 1204ml free water, meeting pt's needs @ 136% Protein, 93% energy 2. Rassess when Pt is off vent. Expected Outcomes/Goals: Improved nutrition related lab profile, graduaul weight gain Date of Service: Sep 09, 2025 Billing Provider: OMI HATCH MD Common Visit Codes: [id number] CARE 30-74 MIN LAURA BOND Sep 09, 2025 16:58 OMI HATCH MD Sep 10, 2025 14:46
--- NOTE | 2025-09-09 23:34 | DVHPN2 ---
Progress Note - Dictate Date Seen: Sep 09, 2025 Medical Necessity Reason Pt with a Central, PICC or Fol: No Subjective Patient was seen and evaluated in follow up in the ICU. Patient is intubated and sedated on ventilator. 30% FiO2. Echocardiogram showed LV EF of 65%. Per RN, patient is slightly responsive to stroke painful stimuli, but he opens his eyes during airway suction, but he is nonresponsive to visual threat or verbal stimulation. Chest x-ray is unchanged. H&H is stable. vital signs Vital Sign Date Time Temp Pulse Resp B/P (MAP) Pulse Ox O2 Delivery O2 Flow Rate FiO2 09/09/25 11:57 85 16 111/78 (89) 98 30 09/09/25 10:03 Mechanical Ventilator+ 09/09/25 09:15 98.4 209.1 Total Intake and Output 09/08/25 09/08/25 09/09/25 15:00 23:00 07:00 Intake Total 518.281 ml 668.726 ml 671.300 ml Output Total 600 ml 875 ml Balance 518.281 ml 68.726 ml -203.700 ml medications Current Medications Medications Dose Ordered Sig/Keshawn Route Start Time Stop Time Status Last Admin Dose Admin Propofol 100 ml @ 3 mls/hr Q24H IV 09/06/25 07:30 09/09/25 07:15 15 MLS/HR Midazolam HCl 100 ml @ 1 mls/hr Q24H IV 09/06/25 07:30 09/09/25 07:15 6 MLS/HR Levetiracetam 100 ml @ 400 mls/hr BID IV 09/06/25 22:00 09/09/25 09:50 400 MLS/HR Sodium Chloride 10 ml Q8HR IV 09/06/25 14:00 09/09/25 05:46 10 ML Docusate Sodium 100 mg BIDPRN PRN PO 09/06/25 12:30 Acetaminophen 650 mg Q6HP PRN PO 09/06/25 12:30 Enoxaparin Sodium 40 mg DAILY SC 09/07/25 10:00 09/09/25 09:50 40 MG Dopamine HCl/ Dextrose 250 ml @ 14.681 mls/ hr Q17H2M IV 09/06/25 23:30 09/09/25 09:50 8.809 MLS/HR Lorazepam 1 mg Q2HPRN PRN IV 09/07/25 05:45 Aspirin 81 mg DAILY NG 09/08/25 10:00 09/09/25 09:49 81 MG Enteral Nutritional Formula 1,000 ml 30ML/HR GT 09/07/25 15:30 09/08/25 20:16 1,000 ML Pantoprazole Sodium 40 mg DAILY IV 09/08/25 10:00 09/09/25 09:50 40 MG Piperacillin Sod/ Tazobactam Sod 100 ml @ 25 mls/hr Q8HR IV 09/07/25 22:00 09/09/25 05:46 25 MLS/HR Hydralazine HCl 10 mg Q6HP PRN IV 09/08/25 19:15 09/08/25 22:02 10 MG objective GENERAL: Ill appearing, intubated on ventilator. EYES: PERRL, EOMI. Anicteric. HENT: Moist mucous membranes. LUNGS: Decreased breath sounds. CARDIOVASCULAR: Regular rate and rhythm. ABDOMEN: Soft, nontender and nondistended. EXTREMITIES: No edema. SKIN: Warm, dry. laboratory and microbiology Laboratory Tests 09/09/25 03:40 Test 09/09/25 03:40 Range/Units Serum Glucose 106 74-106 mg/dL Problem List Elevated troponins. Sinus bradycardia. Hypokalemia. Seizures. HLD. HTN. Assessment/Plan Continued all current supportive medical care. Aspirin. DVT and GI prophylactics. IV Hydralazine for SBP >150. IV antibiotics as ordered. Additional plan as per the hospital course. Critical care time of 45 minutes provided to include time spent evaluation of patient at bedside, when appropriate patient/family education for diagnosis, treatment plan, review of pertinent medical information and discussion of care with specialty providers and PCP. Mechanical ventilator parameters, treatment and adjustments have personally been reviewed by me and treatment plan by maternity floor supervisor has also been reviewed. Dietary Evaluation Review Comments: 1. TF Vital high Protein @60ml/hr providing 126g Protein 1440kcal, 1204ml free water, meeting pt's needs @ 136% Protein, 93% energy 2. Rassess when Pt is off vent. Expected Outcomes/Goals: Improved nutrition related lab profile, graduaul weight gain Plan discussed with: Other MOISES HANKINS MD Sep 09, 2025 13:34
[2025-09-10] VITALS (111 sets, daily range): BP systolic 79–200; BP diastolic 48–157; PULSE 55–121; RESP 16–24; TEMP 97.3–99.7; O2SAT 94–100
[2025-09-10 04:19] LABS: Hematocrit 33.5 % (41.0-53.0); Hemoglobin 11.8 g/dL (13.5-17.5); Mean Corpuscular Hemoglobin 31.8 pg (28.0-32.0); Mean Corpuscular Volume 90.7 fL (80.0-100.0); Nucleated Red Blood Cells % 0.0 %
[2025-09-10 04:21] LABS: Alanine Aminotransferase 32 U/L (7-40); Albumin 3.6 g/dL (3.2-4.8); Alkaline Phosphatase 98 U/L (46-116); Anion Gap 11 (5-15); BUN/Creatinine Ratio 15.0 (10.0-20.0); Bilirubin, Total 0.6 mg/dL (0.2-1.0); Calcium 8.8 mg/dL (8.7-10.4); Carbon Dioxide 26 mmol/L (20-31); Chloride 102 mmol/L (98-107); Glucose 103 mg/dL (74-106); Magnesium 2.0 mg/dL (1.6-2.6); Sodium 139 mmol/L (136-145); Total Protein 5.8 g/dL (5.7-8.2)
[2025-09-10 04:33] LABS: Blood Urea Nitrogen 9 mg/dL (9-23); Potassium 3.1 mmol/L (3.5-5.1)
--- NOTE | 2025-09-10 05:20 | DVH ---
CHEST RADIOGRAPH Indication: pna Technique: Single frontal view of the chest was obtained COMPARISON: XY CHEST PORTABLE on DOS: 09/09/25, XY CHEST PORTABLE on DOS: 09/08/25, XY CHEST XRAY 1 VIEW on DOS: 09/08/25, XY CHEST PORTABLE on DOS: 09/07/25, XY CHEST PORTABLE on DOS: 09/06/25 FINDINGS: Lines and Tubes: Endotracheal tube and enteric catheter in satisfactory position. Lungs: Mild congestion left basilar subsegmental atelectasis. No significant interval change. Pleura: No effusion.No pneumothorax. Cardiomediastinal contours: Unremarkable Bones: Unremarkable IMPRESSION: Lines and tubes in satisfactory position. No significant interval change.
[2025-09-10] MEDS: POTASSIUM CHL 20MEQ/100ML 100 ML IV SCH (05:34)
[2025-09-10 06:51] LABS: Base Excess -0.3 mmol/L (-2.0-3.0)
--- NOTE | 2025-09-10 10:15 | DVHPN2 ---
Progress Note - Dictate Date Seen: Sep 10, 2025 Medical Necessity Reason Pt with a Central, PICC or Fol: No Subjective Mr. Morgan is a 65 years old left-handed gentleman with a history of seizure, GERD, anxiety, he was brought to the [facility] on 09/06/2025 with a chief complaint of seizure activity. I have seen and examined the patient, discussed with his nurse, in the room, he is intubated, he open his eyes , questionable eye rolling movement, but no tracking, nonresponsive to verbal stimuli No seizure activity WBC/HB/PLT/MCV, 09/07/25: 7.2/13/262/90.4 CBC, 09/07/25 0829: Unremarkable K, 09/07/2025: 2.8 Lactic acid, 09/06/2025: 8.1, 4.3 Liver function tests, 09/07/2025: Unremarkable CT head, 09/06/2025: NO ACUTE INTRACRANIAL ABNORMALITY SEEN vital signs Vital Sign Date Time Temp Pulse Resp B/P (MAP) Pulse Ox O2 Delivery O2 Flow Rate FiO2 09/10/25 09:34 65 16 96/60 (72) 99 30 09/10/25 09:08 Mechanical Ventilator+ 09/10/25 06:45 98.4 209.1 Total Intake and Output 09/09/25 09/09/25 09/10/25 15:00 23:00 07:00 Intake Total 360.536 ml 726.488 ml 594.552 ml Output Total 550 ml 425 ml Balance 360.536 ml 176.488 ml 169.552 ml medications Current Medications Medications Dose Ordered Sig/Keshawn Route Start Time Stop Time Status Last Admin Dose Admin Propofol 100 ml @ 3 mls/hr Q24H IV 09/06/25 07:30 09/10/25 05:29 18 MLS/HR Midazolam HCl 100 ml @ 1 mls/hr Q24H IV 09/06/25 07:30 09/09/25 21:58 6 MLS/HR Levetiracetam 100 ml @ 400 mls/hr BID IV 09/06/25 22:00 09/09/25 21:39 400 MLS/HR Sodium Chloride 10 ml Q8HR IV 09/06/25 14:00 09/10/25 05:29 10 ML Acetaminophen 650 mg Q6HP PRN PO 09/06/25 12:30 Enoxaparin Sodium 40 mg DAILY SC 09/07/25 10:00 09/09/25 09:50 40 MG Dopamine HCl/ Dextrose 250 ml @ 14.681 mls/ hr Q17H2M IV 09/06/25 23:30 09/09/25 09:50 8.809 MLS/HR Lorazepam 1 mg Q2HPRN PRN IV 09/07/25 05:45 Aspirin 81 mg DAILY NG 09/08/25 10:00 09/09/25 09:49 81 MG Enteral Nutritional Formula 1,000 ml 30ML/HR GT 09/07/25 15:30 09/09/25 21:36 1,000 ML Pantoprazole Sodium 40 mg DAILY IV 09/08/25 10:00 09/09/25 09:50 40 MG Piperacillin Sod/ Tazobactam Sod 100 ml @ 25 mls/hr Q8HR IV 09/07/25 22:00 09/10/25 05:29 25 MLS/HR Hydralazine HCl 10 mg Q6HP PRN IV 09/08/25 19:15 09/08/25 22:02 10 MG Docusate Sodium 100 mg BIDPRN PRN GT 09/09/25 16:45 objective The patient is well-nourished and well-developed with no distress. The patient is intubated MENTAL STATUS: Subjective CRANIAL NERVES: Pupils are equal, round and reactive, very small. He open his eyes. No signs of facial weakness. There are gagging or coughing reflexes SENSATION: Responsive to painful stimuli MOTOR: Normal tone in the upper and lower extremity. Normal muscle bulk. No fasciculations. No spontaneous movement. REFLEXES: Deep tendon reflexes are symmetrical. No pathological reflexes. CEREBELLAR/COORDINATION: Deferred GAIT/STATION: deferred. laboratory and microbiology Laboratory Tests 09/10/25 03:27 Test 09/10/25 03:27 Range/Units Serum Glucose 103 74-106 mg/dL Problem List Status epileptics General realized seizures Passing out [id number], Syncope Partial complex seizure Tremor in both upper extremities Essential tremors Rule out Parkinson's disease Rule out medication effects Assessment/Plan Monitoring Supportive treatment EEG MRI head Follow up for labs Keppra 1000 mg IV b.i.d. for now Ativan for seizure breakthrough Not treatment for the tremors/Parkinson's disease at this time GI prophylaxis DVT prophylaxis When off sedation gradually More history of the seizure, tremors once he is mentally improved More recommendation per clinical course This medical document was created using an electronic medical record system with [employer] dictation system. Although this document has been carefully reviewed, there may still be some phonetic and typographical errors. These areas are purely typographical due to imperfections of the software programs, and do not reflect any compromise in the patient's medical care. Prognosis guarded Dietary Evaluation Review Comments: 1. TF Vital high Protein @60ml/hr providing 126g Protein 1440kcal, 1204ml free water, meeting pt's needs @ 136% Protein, 93% energy 2. Rassess when Pt is off vent. Expected Outcomes/Goals: Improved nutrition related lab profile, graduaul weight gain Plan discussed with: Other Critical Care Time(min): 30 EMIGDIO THOMPSON MD Sep 10, 2025 10:15
--- NOTE | 2025-09-10 16:04 | DVHPN2 ---
Progress Note - Dictate Date Seen: Sep 10, 2025 Medical Necessity Reason Pt with a Central, PICC or Fol: No Subjective Patient was seen and evaluated in follow up in the ICU. Patient is intubated and sedated on ventilator. 30% FiO2. Patient opens his eyes, noted with questionable eye rolling movement, but no tracking, nonresponsive to verbal stimuli. K 3.1, AST 47. Chest x-ray showed no change. vital signs Vital Sign Date Time Temp Pulse Resp B/P (MAP) Pulse Ox O2 Delivery O2 Flow Rate FiO2 09/10/25 12:34 86/54 09/10/25 11:25 16 100 Mechanical Ventilator+ 30 30 09/10/25 11:24 69 09/10/25 11:00 99.0 210.2 Total Intake and Output 09/09/25 09/09/25 09/10/25 15:00 23:00 07:00 Intake Total 360.536 ml 726.488 ml 621.488 ml Output Total 550 ml 425 ml Balance 360.536 ml 176.488 ml 196.488 ml medications Current Medications Medications Dose Ordered Sig/Keshawn Route Start Time Stop Time Status Last Admin Dose Admin Propofol 100 ml @ 3 mls/hr Q24H IV 09/06/25 07:30 09/10/25 10:16 18 MLS/HR Midazolam HCl 100 ml @ 1 mls/hr Q24H IV 09/06/25 07:30 09/09/25 21:58 6 MLS/HR Levetiracetam 100 ml @ 400 mls/hr BID IV 09/06/25 22:00 09/10/25 10:10 400 MLS/HR Sodium Chloride 10 ml Q8HR IV 09/06/25 14:00 09/10/25 05:29 10 ML Acetaminophen 650 mg Q6HP PRN PO 09/06/25 12:30 Enoxaparin Sodium 40 mg DAILY SC 09/07/25 10:00 09/10/25 10:11 40 MG Dopamine HCl/ Dextrose 250 ml @ 14.681 mls/ hr Q17H2M IV 09/06/25 23:30 09/09/25 09:50 8.809 MLS/HR Lorazepam 1 mg Q2HPRN PRN IV 09/07/25 05:45 Aspirin 81 mg DAILY NG 09/08/25 10:00 09/10/25 10:11 81 MG Enteral Nutritional Formula 1,000 ml 30ML/HR GT 09/07/25 15:30 09/09/25 21:36 1,000 ML Pantoprazole Sodium 40 mg DAILY IV 09/08/25 10:00 09/10/25 10:10 40 MG Piperacillin Sod/ Tazobactam Sod 100 ml @ 25 mls/hr Q8HR IV 09/07/25 22:00 09/10/25 05:29 25 MLS/HR Hydralazine HCl 10 mg Q6HP PRN IV 09/08/25 19:15 09/08/25 22:02 10 MG Docusate Sodium 100 mg BIDPRN PRN GT 09/09/25 16:45 objective GENERAL: Ill appearing, intubated on ventilator. EYES: PERRL, EOMI. Anicteric. HENT: Moist mucous membranes. LUNGS: Decreased breath sounds. CARDIOVASCULAR: Regular rate and rhythm. ABDOMEN: Soft, nontender and nondistended. EXTREMITIES: No edema. SKIN: Warm, dry. laboratory and microbiology Laboratory Tests 09/10/25 03:27 Test 09/10/25 03:27 Range/Units Serum Glucose 103 74-106 mg/dL Problem List Elevated troponins. Sinus bradycardia. Hypokalemia. Seizures. HLD. HTN. Assessment/Plan Continued all current supportive medical care. Aspirin. DVT and GI prophylactics. IV antibiotics as ordered. Additional plan as per the hospital course. Critical care time of 45 minutes provided to include time spent evaluation of patient at bedside, when appropriate patient/family education for diagnosis, treatment plan, review of pertinent medical information and discussion of care with specialty providers and PCP. Mechanical ventilator parameters, treatment and adjustments have personally been reviewed by me and treatment plan by customer account executive has also been reviewed. Dietary Evaluation Review Comments: 1. TF Vital high Protein @60ml/hr providing 126g Protein 1440kcal, 1204ml free water, meeting pt's needs @ 136% Protein, 93% energy 2. Rassess when Pt is off vent. Expected Outcomes/Goals: Improved nutrition related lab profile, graduaul weight gain Plan discussed with: Other MOISES HANKINS MD Sep 10, 2025 12:40
--- NOTE | 2025-09-10 16:06 | DVHPNRES ---
Progress Note Date Seen: Sep 10, 2025 Resident Creating Document: LAURA BOND RESIDENT Medical Necessity Reason Pt with a Central, PICC or Fol: No Subjective Review of Systems Patient is a 65-year-old male with past medical history of anxiety, GERD, seizure disorder. as per patient had a seizure at 2:00 a.m. on 09/06/2025. Which was followed by another tonic-clonic seizure 20 minutes later. For which called 911. Upon arrival in the ER patient had another for seizures which did not turn to baseline for 1 hour. states that patient's last seizure was on August 04. Patient was intubated in the ER patient was shaking and had altered level of consciousness. states that patient did not have any recent illnesses, flu-like symptoms, sick contacts. As per patient is compliant with medications for seizure( Depakote). past surgical history: Denies any surgeries Family history: Cancer in sister, uncle Social history: Smokes marijuana, denies any cigarette, alcohol, drug use. Lives with: Spouse, at home 09/07/2025: Patient seen in the ICU. as per patient did not experience any chest pain, palpitations, shortness of breath. Overnight patient's heart rate did drop to the 30s for which dopamine was . Patient has elevated troponins, cardiology was consulted. Patient has sinus bradycardia. potassium was replaced. Started vital HP feeding. Aspirin given. Patient is too unstable to transfer. Neurology on board, As per cardiology heparin drip and aspirin to be held 09/08/2025: Patient seen and examined in the ICU. Patient was intubated and sedated, according to family patient was having seizure for last two years, denies any prior head trauma, EEG pending. 09/09/2025: : Patient seen and examined in the ICU. Patient was intubated and sedated, ordered MRI, pending for EEG. 09/10/25 : Patient is scheduled for MRI today at 3 : 30 p.m. Objective vital signs Vital Sign Date Time Temp Pulse Resp B/P (MAP) Pulse Ox O2 Delivery O2 Flow Rate FiO2 09/10/25 15:15 108 17 125/83 (97) 97 09/10/25 15:12 30 09/10/25 15:00 99.0 210.2 09/10/25 12:00 Mechanical Ventilator+ Total Intake and Output 09/09/25 09/09/25 09/10/25 15:00 23:00 07:00 Intake Total 360.536 ml 726.488 ml 621.488 ml Output Total 550 ml 425 ml Balance 360.536 ml 176.488 ml 196.488 ml medications Current Medications Medications Dose Ordered Sig/Keshawn Route Start Time Stop Time Status Last Admin Dose Admin Propofol 100 ml @ 3 mls/hr Q24H IV 09/06/25 07:30 09/10/25 10:16 18 MLS/HR Midazolam HCl 100 ml @ 1 mls/hr Q24H IV 09/06/25 07:30 09/10/25 13:33 6 MLS/HR Levetiracetam 100 ml @ 400 mls/hr BID IV 09/06/25 22:00 09/10/25 10:10 400 MLS/HR Sodium Chloride 10 ml Q8HR IV 09/06/25 14:00 09/10/25 14:10 10 ML Acetaminophen 650 mg Q6HP PRN PO 09/06/25 12:30 Enoxaparin Sodium 40 mg DAILY SC 09/07/25 10:00 09/10/25 10:11 40 MG Dopamine HCl/ Dextrose 250 ml @ 14.681 mls/ hr Q17H2M IV 09/06/25 23:30 09/09/25 09:50 8.809 MLS/HR Lorazepam 1 mg Q2HPRN PRN IV 09/07/25 05:45 Aspirin 81 mg DAILY NG 09/08/25 10:00 09/10/25 10:11 81 MG Enteral Nutritional Formula 1,000 ml 30ML/HR GT 09/07/25 15:30 09/09/25 21:36 1,000 ML Pantoprazole Sodium 40 mg DAILY IV 09/08/25 10:00 09/10/25 10:10 40 MG Piperacillin Sod/ Tazobactam Sod 100 ml @ 25 mls/hr Q8HR IV 09/07/25 22:00 09/10/25 14:10 25 MLS/HR Hydralazine HCl 10 mg Q6HP PRN IV 09/08/25 19:15 09/08/25 22:02 10 MG Docusate Sodium 100 mg BIDPRN PRN GT 09/09/25 16:45 Examination Patient lying in bed, under sedoanalgesia due to mechanical ventilation General: RASS -3, afebrile, mucosae are moist Cardiovascular: Normal S1 and S2. No murmurs, gallops or rubs Respiratory: Mechanically assisted ventilation, equal bilateral airway entree. Clear lung sounds on auscultation Abdomen: Soft, nontender, no organomegaly, normal bowel sounds MSK/skin: Mobilization of limbs cannot be evaluated. Skin is dry and warm Neurological: Orientation cannot be assessed. No apparent motor no sensitive deficits. Pupils are isocoric and reactive laboratory and microbiology Laboratory Tests 09/10/25 03:27 Test 09/10/25 03:27 Range/Units Serum Glucose 103 74-106 mg/dL Microbiology Date/Time Source Procedure Growth Status 09/06/25 18:27 Nose MRSA Screen - Final Complete 09/06/25 08:35 Urine - [place] Urine Culture - Final Complete 09/06/25 08:05 Blood Blood Culture - Preliminary NO GROWTH AFTER 72 HOURS OF INCUBATION. Resulted 09/06/25 07:39 Sputum Gram Stain - Final Complete 09/06/25 07:39 Sputum Respiratory Culture - Final Complete Problem List/Assessment/Plan Problem List/Assessment/Plan Neurology # metabolic encephalopathy due to seizure # Status epilepticus # Generalized tonic-clonic seizures # Syncope # Partial complex seizure # Tremor in both upper extremities # Essential tremors # Rule out Parkinson's disease - mechanical ventilation mode AC, FiO2 30, peep 5, VT 500, RR 16 - sedated - Keppra IV b.i.d. - Depakote home medication - neurology consult, -EEG results pending - head CT showed NO ACUTE INTRACRANIAL ABNORMALITY SEEN. - MRI brain is scheduled for today at 3:30 p.m. Cardiology # NSTEMI type 2, type 1 not ruled out # Hypertension # Hyperlipidemia # sinus bradycardia - cardiology consulted - As per cardio, heparin and asprin to be held - dopamine drip for bradycardia - dopamine drip was held then restarted when patient's heart rate went below 60 - echo 09/07/25: EF 65%, moderately dilated RV and is hypokinetic - elevated troponins 74> 818> 684> 516 -ischemic workup at patient is stable as per welding tester - IV hydralazine p.r.n. for hypertension Respiratory # acute respiratory failure secondary to pneumonia on mechanical ventilation # Possible aspiration pneumonia - IV Zosyn - mechanical ventilation mode AC, FiO2 30, peep 5, VT 500, RR 16 Gastroenterology # history of GERD - GI prophylaxis Protonix - Reglan Electrolytes # Hypokalemia - replaced patient's urine output was low, restart maintain fluid normal saline 50 mL per hour DVT prophylaxis: Lovenox PPI prophylaxis: Protonix Invasive access [place] catheter 09/06 Endotracheal tube 09/06 Rt Femoral central line 09/06 Drips Dopamine Versed Propofol Critical Care time spent 62 minutes including patient care, chart review and updating family, excluding procedure. Case discussed with Dr. Hatch Plan discussed with: Spouse My Orders My Orders Orders - LAURA BOND RESIDENT Procedure Category Date Status Time Complete Blood Count LAB 09/11/25 Verified 04:00 Comprehensive LAB 09/11/25 Verified Metabolic Panel 04:00 Chest Xray 1 View XY 09/11/25 Verified 04:00 Abg W/ Co-Ox RT 09/11/25 Verified 04:00 Dietary Evaluation Review Comments: 1. TF Vital high Protein @60ml/hr providing 126g Protein 1440kcal, 1204ml free water, meeting pt's needs @ 136% Protein, 93% energy 2. Rassess when Pt is off vent. Expected Outcomes/Goals: Improved nutrition related lab profile, graduaul weight gain Date of Service: Sep 10, 2025 Billing Provider: OMI HATCH MD Common Visit Codes: 00186-[id number] CARE 30-74 MIN LAURA BOND RESIDENT Sep 10, 2025 16:06 OMI HATCH MD Sep 11, 2025 11:12
--- NOTE | 2025-09-10 16:28 | DVH ---
MRI BRAIN WITHOUT CONTRAST History: seizures Comparison: CT HEAD WITHOUT CONTRAST on DOS: 09/06/25 Technique: Multi-sequence, multiplanar magnetic resonance images of the brain are reviewed. Findings: No acute hemorrhage or infarct is seen. Scattered T2/FLAIR hyperintense foci in the periventricular and subcortical white matter as well as erik, suggestive of chronic microvascular disease. The ventricles and sulci are normal in size and configuration for the patient's age. There is no evidence of mass or mass effect. There are no abnormal extra-axial fluid collections. The major intracranial blood vessels retain normal flow voids consistent with their patency. Trace mucosal thickening of the paranasal sinuses. Trace mastoid air cell effusion. IMPRESSION: No acute infarct or intracranial hemorrhage.
[2025-09-10] MEDS: SODIUM CHLORIDE 0.9% 1,000 ML IV SCH (17:38)
--- NOTE | 2025-09-10 20:51 | DVHEEG2 ---
Neurology EEG Procedural Note Procedural Note EXAM DATE: 09/08/2025 REFERRING DOCTOR: Dr. Thompson TECHNIQUE: Eighteen channels of EEG, 2 channels of EOG, and 1 channel of EKG were recorded using the [employer] 10/20 system. CLINICAL DATA: The patient was referred for an EEG evaluation for the evidence of seizure disorder. MEDICATIONS: See the chart BACKGROUND ACTIVITY: The record showed moderate amount of diffuse low to medium voltage polymorphic delta and theta waveform over both hemispheres, that was reactive to external stimuli, there was a few low to medium amplitude sharply contoured waveform over both hemispheres ACTIVATION: Hyperventilation: Not done Photic Stimulation: Not done Sleep: Nonresponsiveness IMPRESSION: This is a moderately abnormal EEG. This EEG is seen in moderate cerebral dysfunction due to metabolic/hypoxic encephalopathy or medication effect, please correlate clinically. Above described sharply contoured waveforms are not unequivocally considered epileptiform in nature The EKG channel showed a regular heart rate of 72/min. [place] [address] EMIGDIO THOMPSON MD Sep 10, 2025 20:51
[2025-09-10] MEDS: DOCUSATE ORAL LIQUID 100 MG/10 ML UD GT PRN (22:05)
[2025-09-11] VITALS (94 sets, daily range): BP systolic 82–171; BP diastolic 47–87; PULSE 43–104; RESP 11–29; TEMP 53.1–100.2; O2SAT 93–100
[2025-09-11 03:57] LABS: Hematocrit 33.6 % (41.0-53.0); Hemoglobin 11.7 g/dL (13.5-17.5); Mean Corpuscular Hemoglobin 31.8 pg (28.0-32.0); Mean Corpuscular Volume 91.3 fL (80.0-100.0); Nucleated Red Blood Cells % 0.1 %
[2025-09-11 04:20] LABS: Albumin 3.8 g/dL (3.2-4.8); BUN/Creatinine Ratio 18.5 (10.0-20.0); Bilirubin, Total 0.6 mg/dL (0.2-1.0); Blood Urea Nitrogen 12 mg/dL (9-23); Calcium 9.0 mg/dL (8.7-10.4); Chloride 103 mmol/L (98-107); Glucose 103 mg/dL (74-106); Magnesium 2.0 mg/dL (1.6-2.6); Sodium 140 mmol/L (136-145); Total Protein 6.2 g/dL (5.7-8.2)
[2025-09-11 04:38] LABS: Alanine Aminotransferase 70 U/L (7-40); Alkaline Phosphatase 132 U/L (46-116); Potassium 3.4 mmol/L (3.5-5.1)
[2025-09-11 04:46] LABS: Anion Gap 11 (5-15); Carbon Dioxide 26 mmol/L (20-31)
--- NOTE | 2025-09-11 05:40 | DVH ---
CHEST RADIOGRAPH Indication: Intubated Technique: Single frontal view of the chest was obtained Comparison: XY CHEST PORTABLE on DOS: 09/10/25 FINDINGS: Lines and Tubes: The endotracheal tube terminates 4.1 cm above skye. The enteric tube courses below the left hemidiaphragm and the tip extends outside the field of view. Lungs: Left basilar airspace disease noted. Mild pulmonary congestion unchanged. Pleura: No effusion. No pneumothorax. Cardiomediastinal contours: Unremarkable Bones: No acute osseous abnormality. IMPRESSION: 1. Appropriate position of the support lines and tubes. 2. Left basilar airspace disease which may reflect atelectasis or pneumonia. Stable mild pulmonary congestion.
[2025-09-11] MEDS: POTASSIUM CHL 20MEQ/100ML 100 ML IV ONE (05:50)
[2025-09-11 06:57] LABS: Base Excess -0.9 mmol/L (-2.0-3.0)
--- NOTE | 2025-09-11 09:57 | DVHPN2 ---
Progress Note - Dictate Date Seen: Sep 11, 2025 Medical Necessity Reason Pt with a Central, PICC or Fol: No Subjective Mr. Morgan is a 65 years old left-handed gentleman with a history of seizure, GERD, anxiety, he was brought to the [facility] on 09/06/2025 with a chief complaint of seizure activity. I have seen and examined the patient, discussed with his nurse, he is responsive to light painful stimuli, No seizure activity Propofol 30 mcg per minute, Versed 8 mcg/minute, dopa: 2 WBC/HB/PLT/MCV, 09/07/25: 7.2/13/262/90.4 CBC, 09/07/25 0829: Unremarkable K, 09/07/2025: 2.8 Lactic acid, 09/06/2025: 8.1, 4.3 Liver function tests, 09/07/2025: Unremarkable CT head, 09/06/2025: NO ACUTE INTRACRANIAL ABNORMALITY SEEN MRI head 09/10/2025: No acute infarct or intracranial hemorrhage vital signs Vital Sign Date Time Temp Pulse Resp B/P (MAP) Pulse Ox O2 Delivery O2 Flow Rate FiO2 09/11/25 09:16 51 17 135/68 (90) 98 30 09/11/25 08:45 98.2 208.8 09/11/25 08:00 Mechanical Ventilator+ Total Intake and Output 09/10/25 09/10/25 09/11/25 15:00 23:00 07:00 Intake Total 597.744 ml 932.872 ml 1147.488 ml Output Total 300 ml 400 ml Balance 597.744 ml 632.872 ml 747.488 ml medications Current Medications Medications Dose Ordered Sig/Keshawn Route Start Time Stop Time Status Last Admin Dose Admin Propofol 100 ml @ 3 mls/hr Q24H IV 09/06/25 07:30 09/11/25 05:49 24 MLS/HR Midazolam HCl 100 ml @ 1 mls/hr Q24H IV 09/06/25 07:30 09/11/25 02:22 7 MLS/HR Levetiracetam 100 ml @ 400 mls/hr BID IV 09/06/25 22:00 09/10/25 22:06 400 MLS/HR Sodium Chloride 10 ml Q8HR IV 09/06/25 14:00 09/11/25 05:50 10 ML Acetaminophen 650 mg Q6HP PRN PO 09/06/25 12:30 Enoxaparin Sodium 40 mg DAILY SC 09/07/25 10:00 09/10/25 10:11 40 MG Dopamine HCl/ Dextrose 250 ml @ 14.681 mls/ hr Q17H2M IV 09/06/25 23:30 09/09/25 09:50 8.809 MLS/HR Lorazepam 1 mg Q2HPRN PRN IV 09/07/25 05:45 Aspirin 81 mg DAILY NG 09/08/25 10:00 09/10/25 10:11 81 MG Enteral Nutritional Formula 1,000 ml 30ML/HR GT 09/07/25 15:30 09/10/25 21:48 1,000 ML Pantoprazole Sodium 40 mg DAILY IV 09/08/25 10:00 09/10/25 10:10 40 MG Piperacillin Sod/ Tazobactam Sod 100 ml @ 25 mls/hr Q8HR IV 09/07/25 22:00 09/11/25 05:48 25 MLS/HR Hydralazine HCl 10 mg Q6HP PRN IV 09/08/25 19:15 09/08/25 22:02 10 MG Docusate Sodium 100 mg BIDPRN PRN GT 09/09/25 16:45 09/10/25 22:05 100 MG Sodium Chloride 1,000 ml @ 50 mls/hr Q20H IV 09/10/25 17:15 09/10/25 17:38 50 MLS/HR objective The patient is well-nourished and well-developed with no distress. The patient is intubated MENTAL STATUS: Subjective CRANIAL NERVES: Pupils are equal, round and reactive, very small. He open his eyes. No signs of facial weakness. There are gagging or coughing reflexes SENSATION: Responsive to painful stimuli MOTOR: Normal tone in the upper and lower extremity. Normal muscle bulk. No fasciculations. No spontaneous movement. REFLEXES: Deep tendon reflexes are symmetrical. No pathological reflexes. CEREBELLAR/COORDINATION: Deferred GAIT/STATION: deferred. laboratory and microbiology Laboratory Tests 09/11/25 03:19 Test 09/11/25 03:19 Range/Units Serum Glucose 103 74-106 mg/dL Problem List Status epileptics General realized seizures Passing out [id number], Syncope Partial complex seizure Tremor in both upper extremities Essential tremors Rule out Parkinson's disease Rule out medication effects Assessment/Plan Monitoring Supportive treatment Follow up for labs Keppra 1000 mg IV b.i.d. for now Ativan for seizure breakthrough Not treatment for the tremors/Parkinson's disease at this time GI prophylaxis DVT prophylaxis When off sedation gradually More history of the seizure, tremors once he is mentally improved More recommendation per clinical course This medical document was created using an electronic medical record system with [employer] dictation system. Although this document has been carefully reviewed, there may still be some phonetic and typographical errors. These areas are purely typographical due to imperfections of the software programs, and do not reflect any compromise in the patient's medical care. Prognosis guarded Dietary Evaluation Review Comments: 1. TF Vital high Protein @60ml/hr providing 126g Protein 1440kcal, 1204ml free water, meeting pt's needs @ 136% Protein, 93% energy 2. Rassess when Pt is off vent. Expected Outcomes/Goals: Improved nutrition related lab profile, graduaul weight gain Plan discussed with: Other Critical Care Time(min): 30 EMIGDIO THOMPSON MD Sep 11, 2025 09:57
--- NOTE | 2025-09-11 15:47 | DVHPNRES ---
Progress Note Date Seen: Sep 11, 2025 Resident Creating Document: LAURA BOND RESIDENT Medical Necessity Reason Pt with a Central, PICC or Fol: No Subjective Review of Systems Patient is a 65-year-old male with past medical history of anxiety, GERD, seizure disorder. as per patient had a seizure at 2:00 a.m. on 09/06/2025. Which was followed by another tonic-clonic seizure 20 minutes later. For which called 911. Upon arrival in the ER patient had another for seizures which did not turn to baseline for 1 hour. states that patient's last seizure was on August 04. Patient was intubated in the ER patient was shaking and had altered level of consciousness. states that patient did not have any recent illnesses, flu-like symptoms, sick contacts. As per patient is compliant with medications for seizure( Depakote). past surgical history: Denies any surgeries Family history: Cancer in sister, uncle Social history: Smokes marijuana, denies any cigarette, alcohol, drug use. Lives with: Spouse, at home 09/07/2025: Patient seen in the ICU. as per patient did not experience any chest pain, palpitations, shortness of breath. Overnight patient's heart rate did drop to the 30s for which dopamine was . Patient has elevated troponins, cardiology was consulted. Patient has sinus bradycardia. potassium was replaced. Started vital HP feeding. Aspirin given. Patient is too unstable to transfer. Neurology on board, As per cardiology heparin drip and aspirin to be held 09/08/2025: Patient seen and examined in the ICU. Patient was intubated and sedated, according to family patient was having seizure for last two years, denies any prior head trauma, EEG pending. 09/09/2025: : Patient seen and examined in the ICU. Patient was intubated and sedated, ordered MRI, pending for EEG. 09/10/25 : Patient is scheduled for MRI today at 3 : 30 p.m. 09/11/23: Patient seen and examined at bedside, patient is on minimal vent setting, CPAP trial done, patient is extubated today. Objective vital signs Vital Sign Date Time Temp Pulse Resp B/P (MAP) Pulse Ox O2 Delivery O2 Flow Rate FiO2 09/11/25 14:25 137/68 09/11/25 14:22 97 6.0 09/11/25 14:22 12 09/11/25 13:12 64 30 09/11/25 08:45 98.2 208.8 09/11/25 08:00 Mechanical Ventilator+ Total Intake and Output 09/10/25 09/10/25 09/11/25 15:00 23:00 07:00 Intake Total 597.744 ml 932.872 ml 1147.488 ml Output Total 300 ml 400 ml Balance 597.744 ml 632.872 ml 747.488 ml medications Current Medications Medications Dose Ordered Sig/Keshawn Route Start Time Stop Time Status Last Admin Dose Admin Propofol 100 ml @ 3 mls/hr Q24H IV 09/06/25 07:30 09/11/25 05:49 24 MLS/HR Midazolam HCl 100 ml @ 1 mls/hr Q24H IV 09/06/25 07:30 09/11/25 02:22 7 MLS/HR Levetiracetam 100 ml @ 400 mls/hr BID IV 09/06/25 22:00 09/11/25 10:25 400 MLS/HR Sodium Chloride 10 ml Q8HR IV 09/06/25 14:00 09/11/25 14:06 10 ML Acetaminophen 650 mg Q6HP PRN PO 09/06/25 12:30 Enoxaparin Sodium 40 mg DAILY SC 09/07/25 10:00 09/11/25 10:25 40 MG Dopamine HCl/ Dextrose 250 ml @ 14.681 mls/ hr Q17H2M IV 09/06/25 23:30 09/11/25 12:54 5.873 MLS/HR Lorazepam 1 mg Q2HPRN PRN IV 09/07/25 05:45 Aspirin 81 mg DAILY NG 09/08/25 10:00 09/11/25 10:07 81 MG Enteral Nutritional Formula 1,000 ml 30ML/HR GT 09/07/25 15:30 09/10/25 21:48 1,000 ML Pantoprazole Sodium 40 mg DAILY IV 09/08/25 10:00 09/11/25 10:25 40 MG Piperacillin Sod/ Tazobactam Sod 100 ml @ 25 mls/hr Q8HR IV 09/07/25 22:00 09/11/25 14:06 25 MLS/HR Hydralazine HCl 10 mg Q6HP PRN IV 09/08/25 19:15 09/08/25 22:02 10 MG Docusate Sodium 100 mg BIDPRN PRN GT 09/09/25 16:45 09/10/25 22:05 100 MG Sodium Chloride 1,000 ml @ 50 mls/hr Q20H IV 09/10/25 17:15 09/11/25 12:55 50 MLS/HR Examination Patient lying in bed, under sedoanalgesia due to mechanical ventilation General: RASS -1, afebrile, mucosae are moist Cardiovascular: Normal S1 and S2. No murmurs, gallops or rubs Respiratory: Extubated today, on supplemental oxygen Abdomen: Soft, nontender, no organomegaly, normal bowel sounds MSK/skin: Mobilization of limbs cannot be evaluated. Skin is dry and warm Neurological: Orientation cannot be assessed. No apparent motor no sensitive deficits. Pupils are isocoric and reactive laboratory and microbiology Laboratory Tests 09/11/25 03:19 Test 09/11/25 03:19 Range/Units Serum Glucose 103 74-106 mg/dL Microbiology Date/Time Source Procedure Growth Status 09/06/25 18:27 Nose MRSA Screen - Final Complete 09/06/25 08:35 Urine - [place] Urine Culture - Final Complete 09/06/25 08:05 Blood Blood Culture - Final NO GROWTH AFTER 5 DAYS OF INCUBATION. Complete 09/06/25 07:39 Sputum Gram Stain - Final Complete 09/06/25 07:39 Sputum Respiratory Culture - Final Complete Problem List/Assessment/Plan Problem List/Assessment/Plan Neurology # metabolic encephalopathy due to seizure # Status epilepticus # Generalized tonic-clonic seizures # Syncope # Partial complex seizure # Tremor in both upper extremities # Essential tremors # Rule out Parkinson's disease - Keppra IV b.i.d. - Depakote home medication - neurology consult, -EEG : Moderately abnormal cerebral activity - head CT showed NO ACUTE INTRACRANIAL ABNORMALITY SEEN. - MRI brain: No acute intracranial abnormality Cardiology # NSTEMI type 2, type 1 not ruled out # Hypertension # Hyperlipidemia # sinus bradycardia - cardiology consulted - As per cardio, heparin and asprin to be held - dopamine drip for bradycardia - dopamine drip was held then restarted when patient's heart rate went below 60 - echo 09/07/25: EF 65%, moderately dilated RV and is hypokinetic - elevated troponins 74> 818> 684> 516 -ischemic workup at patient is stable as per director advanced - IV hydralazine p.r.n. for hypertension Respiratory # acute respiratory failure secondary to pneumonia on mechanical ventilation # Possible aspiration pneumonia - IV Zosyn -Extubated today, on supplemental oxygen Gastroenterology # history of GERD - GI prophylaxis Protonix - Reglan Electrolytes # Hypokalemia - replaced DVT prophylaxis: Lovenox PPI prophylaxis: Protonix Invasive access [place] catheter 09/06 Endotracheal tube 09/06 Rt Femoral central line 09/06 Drips Dopamine Versed Propofol Extubated today, on supplemental oxygen Critical Care time spent 104 minutes including CPAP trial, patient care, chart review and updating family, excluding procedure. Case discussed with Dr. Hatch Plan discussed with: Spouse My Orders My Orders Orders - LAURA BOND Procedure Category Date Status Time Chest Xray 1 View XY 09/11/25 Resulted 04:00 Abg W/ Co-Ox RT 09/11/25 Logged 04:00 Sodium Chloride 0.9% PHA 09/10/25 In Process 17:15 Complete Blood Count LAB 09/12/25 Verified 04:00 Comprehensive LAB 09/12/25 Verified Metabolic Panel 04:00 Dietary Evaluation Review Comments: 1. TF Vital high Protein @60ml/hr providing 126g Protein 1440kcal, 1204ml free water, meeting pt's needs @ 136% Protein, 93% energy 2. Rassess when Pt is off vent. Expected Outcomes/Goals: Improved nutrition related lab profile, graduaul weight gain Date of Service: Sep 11, 2025 Billing Provider: OMI HATCH MD Common Visit Codes: 87190-[id number] CARE 30-74 MIN, [id number]-[id number] CARE-EACH +30MIN LAURA BOND Sep 11, 2025 15:46 OMI HATCH MD Sep 13, 2025 12:36
[2025-09-11 16:55] LABS: Base Excess 0.3 mmol/L (-2.0-3.0)
[2025-09-11] MEDS: ACETAMINOPHEN IV 1000 MG/100ML (10MG/ML) IV PRN (18:57)
--- NOTE | 2025-09-11 21:44 | DVHPN2 ---
Progress Note - Dictate Date Seen: Sep 11, 2025 Medical Necessity Reason Pt with a Central, PICC or Fol: No Subjective Patient was seen and evaluated in follow up in the ICU. Patient is intubated and sedated on ventilator. 30% FiO2. Patient is responsive to light painful stimuli. EEG was moderately abnormal EEG. This EEG is seen in moderate cerebral dysfunction due to metabolic/hypoxic encephalopathy or medication effect. Sharply contoured waveforms are not unequivocally considered epileptiform in nature. K 3.4, AST 63, ALT 70. Chest x-ray shows left basilar airspace disease which may reflect atelectasis or pneumonia. Stable mild pulmonary congestion. vital signs Vital Sign Date Time Temp Pulse Resp B/P (MAP) Pulse Ox O2 Delivery O2 Flow Rate FiO2 09/11/25 11:13 61 20 133/73 (93) 99 30 09/11/25 08:45 98.2 208.8 09/11/25 08:00 Mechanical Ventilator+ Total Intake and Output 09/10/25 09/10/25 09/11/25 15:00 23:00 07:00 Intake Total 597.744 ml 932.872 ml 1147.488 ml Output Total 300 ml 400 ml Balance 597.744 ml 632.872 ml 747.488 ml medications Current Medications Medications Dose Ordered Sig/Keshawn Route Start Time Stop Time Status Last Admin Dose Admin Propofol 100 ml @ 3 mls/hr Q24H IV 09/06/25 07:30 09/11/25 05:49 24 MLS/HR Midazolam HCl 100 ml @ 1 mls/hr Q24H IV 09/06/25 07:30 09/11/25 02:22 7 MLS/HR Levetiracetam 100 ml @ 400 mls/hr BID IV 09/06/25 22:00 09/11/25 10:25 400 MLS/HR Sodium Chloride 10 ml Q8HR IV 09/06/25 14:00 09/11/25 05:50 10 ML Acetaminophen 650 mg Q6HP PRN PO 09/06/25 12:30 Enoxaparin Sodium 40 mg DAILY SC 09/07/25 10:00 09/11/25 10:25 40 MG Dopamine HCl/ Dextrose 250 ml @ 14.681 mls/ hr Q17H2M IV 09/06/25 23:30 09/09/25 09:50 8.809 MLS/HR Lorazepam 1 mg Q2HPRN PRN IV 09/07/25 05:45 Aspirin 81 mg DAILY NG 09/08/25 10:00 09/11/25 10:07 81 MG Enteral Nutritional Formula 1,000 ml 30ML/HR GT 09/07/25 15:30 09/10/25 21:48 1,000 ML Pantoprazole Sodium 40 mg DAILY IV 09/08/25 10:00 09/11/25 10:25 40 MG Piperacillin Sod/ Tazobactam Sod 100 ml @ 25 mls/hr Q8HR IV 09/07/25 22:00 09/11/25 05:48 25 MLS/HR Hydralazine HCl 10 mg Q6HP PRN IV 09/08/25 19:15 09/08/25 22:02 10 MG Docusate Sodium 100 mg BIDPRN PRN GT 09/09/25 16:45 09/10/25 22:05 100 MG Sodium Chloride 1,000 ml @ 50 mls/hr Q20H IV 09/10/25 17:15 09/10/25 17:38 50 MLS/HR objective GENERAL: Ill appearing, intubated on ventilator. EYES: PERRL, EOMI. Anicteric. HENT: Moist mucous membranes. LUNGS: Decreased breath sounds. CARDIOVASCULAR: Regular rate and rhythm. ABDOMEN: Soft, nontender and nondistended. EXTREMITIES: No edema. SKIN: Warm, dry. laboratory and microbiology Laboratory Tests 09/11/25 03:19 Test 09/11/25 03:19 Range/Units Serum Glucose 103 74-106 mg/dL Problem List Elevated troponins. Sinus bradycardia. Hypokalemia. Seizures. HLD. HTN. Assessment/Plan Continued all current supportive medical care. Aspirin. DVT and GI prophylactics. IV antibiotics as ordered. Additional plan as per the hospital course. Critical care time of 45 minutes provided to include time spent evaluation of patient at bedside, when appropriate patient/family education for diagnosis, treatment plan, review of pertinent medical information and discussion of care with specialty providers and PCP. Mechanical ventilator parameters, treatment and adjustments have personally been reviewed by me and treatment plan by welfare director has also been reviewed. Dietary Evaluation Review Comments: 1. TF Vital high Protein @60ml/hr providing 126g Protein 1440kcal, 1204ml free water, meeting pt's needs @ 136% Protein, 93% energy 2. Rassess when Pt is off vent. Expected Outcomes/Goals: Improved nutrition related lab profile, graduaul weight gain Plan discussed with: Other MOISES HANKINS MD Sep 11, 2025 11:46
[2025-09-12] VITALS (32 sets, daily range): BP systolic 105–155; BP diastolic 58–93; PULSE 60–86; RESP 12–23; TEMP 98.6–100.4; O2SAT 93–99
[2025-09-12 03:19] LABS: Hematocrit 29.3 % (41.0-53.0); Hemoglobin 10.3 g/dL (13.5-17.5); Mean Corpuscular Hemoglobin 32.2 pg (28.0-32.0); Mean Corpuscular Volume 91.0 fL (80.0-100.0); Nucleated Red Blood Cells % 0.0 %
[2025-09-12 03:20] LABS: Anion Gap 9 (5-15); BUN/Creatinine Ratio 15.3 (10.0-20.0); Blood Urea Nitrogen 9 mg/dL (9-23); Calcium 8.7 mg/dL (8.7-10.4); Carbon Dioxide 25 mmol/L (20-31); Glucose 98 mg/dL (74-106); Potassium 3.5 mmol/L (3.5-5.1); Sodium 142 mmol/L (136-145); Total Protein 5.9 g/dL (5.7-8.2)
[2025-09-12 03:21] LABS: Albumin 3.6 g/dL (3.2-4.8); Bilirubin, Total 0.7 mg/dL (0.2-1.0)
[2025-09-12 03:36] LABS: Alanine Aminotransferase 70 U/L (7-40); Alkaline Phosphatase 158 U/L (46-116); Chloride 108 mmol/L (98-107)
--- NOTE | 2025-09-12 10:26 | ECG ---
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
--- NOTE | 2025-09-12 13:55 | DVHPN2 ---
Progress Note - Dictate Date Seen: Sep 12, 2025 Medical Necessity Reason Pt with a Central, PICC or Fol: No Subjective Patient was seen and evaluated in follow up in the ICU. Patient was successfully extubated yesterday afternoon. Patient is stable on room air. AST 54, ALT 70. vital signs Vital Sign Date Time Temp Pulse Resp B/P (MAP) Pulse Ox O2 Delivery O2 Flow Rate FiO2 09/12/25 08:00 15 96 Room Air* 0 21 09/12/25 08:00 71 09/12/25 06:30 99.0 144/72 (96) 210.2 Total Intake and Output 09/11/25 09/11/25 09/12/25 15:00 23:00 07:00 Intake Total 490.238 ml 710 ml 500 ml Output Total 1050 ml 650 ml Balance 490.238 ml -340 ml -150 ml medications Current Medications Medications Dose Ordered Sig/Keshawn Route Start Time Stop Time Status Last Admin Dose Admin Levetiracetam 100 ml @ 400 mls/hr BID IV 09/06/25 22:00 09/12/25 09:59 400 MLS/HR Sodium Chloride 10 ml Q8HR IV 09/06/25 14:00 09/12/25 09:59 10 ML Acetaminophen 650 mg Q6HP PRN PO 09/06/25 12:30 Enoxaparin Sodium 40 mg DAILY SC 09/07/25 10:00 09/12/25 09:59 40 MG Lorazepam 1 mg Q2HPRN PRN IV 09/07/25 05:45 Aspirin 81 mg DAILY NG 09/08/25 10:00 09/12/25 10:00 81 MG Enteral Nutritional Formula 1,000 ml 30ML/HR GT 09/07/25 15:30 09/10/25 21:48 1,000 ML Pantoprazole Sodium 40 mg DAILY IV 09/08/25 10:00 09/12/25 10:00 40 MG Piperacillin Sod/ Tazobactam Sod 100 ml @ 25 mls/hr Q8HR IV 09/07/25 22:00 09/12/25 05:07 25 MLS/HR Hydralazine HCl 10 mg Q6HP PRN IV 09/08/25 19:15 09/08/25 22:02 10 MG Docusate Sodium 100 mg BIDPRN PRN GT 09/09/25 16:45 09/10/25 22:05 100 MG Sodium Chloride 1,000 ml @ 50 mls/hr Q20H IV 09/10/25 17:15 09/12/25 09:15 50 MLS/HR objective GENERAL: Alert and oriented x 3. No acute distress. EYES: PERRL, EOMI. Anicteric. HENT: Moist mucous membranes. LUNGS: Decreased breath sounds. CARDIOVASCULAR: Regular rate and rhythm. ABDOMEN: Soft, nontender and nondistended. EXTREMITIES: No edema. SKIN: Warm, dry. laboratory and microbiology Laboratory Tests 09/12/25 02:46 Test 09/12/25 02:46 Range/Units Serum Glucose 98 74-106 mg/dL Problem List Elevated troponins. Sinus bradycardia. Hypokalemia. Seizures. HLD. HTN. Assessment/Plan Continued all current supportive medical care. Aspirin. DVT and GI prophylactics. IV Hydralazine for SBP >150. IV antibiotics as ordered. Additional plan as per the hospital course. Critical care time of 45 minutes provided to include time spent evaluation of patient at bedside, when appropriate patient/family education for diagnosis, treatment plan, review of pertinent medical information and discussion of care with specialty providers and PCP. Dietary Evaluation Review Comments: 1. TF Vital high Protein @60ml/hr providing 126g Protein 1440kcal, 1204ml free water, meeting pt's needs @ 136% Protein, 93% energy 2. Rassess when Pt is off vent. Expected Outcomes/Goals: Improved nutrition related lab profile, graduaul weight gain Plan discussed with: Patient MOISES HANKINS MD Sep 12, 2025 12:21
--- NOTE | 2025-09-12 15:11 | DVHPNRES ---
Progress Note Date Seen: Sep 12, 2025 Resident Creating Document: LAURA BOND RESIDENT Medical Necessity Reason Pt with a Central, PICC or Fol: No Subjective Review of Systems Patient is a 65-year-old male with past medical history of anxiety, GERD, seizure disorder. as per patient had a seizure at 2:00 a.m. on 09/06/2025. Which was followed by another tonic-clonic seizure 20 minutes later. For which called 911. Upon arrival in the ER patient had another for seizures which did not turn to baseline for 1 hour. states that patient's last seizure was on August 04. Patient was intubated in the ER patient was shaking and had altered level of consciousness. states that patient did not have any recent illnesses, flu-like symptoms, sick contacts. As per patient is compliant with medications for seizure( Depakote). past surgical history: Denies any surgeries Family history: Cancer in sister, uncle Social history: Smokes marijuana, denies any cigarette, alcohol, drug use. Lives with: Spouse, at home 09/07/2025: Patient seen in the ICU. as per patient did not experience any chest pain, palpitations, shortness of breath. Overnight patient's heart rate did drop to the 30s for which dopamine was . Patient has elevated troponins, cardiology was consulted. Patient has sinus bradycardia. potassium was replaced. Started vital HP feeding. Aspirin given. Patient is too unstable to transfer. Neurology on board, As per cardiology heparin drip and aspirin to be held 09/08/2025: Patient seen and examined in the ICU. Patient was intubated and sedated, according to family patient was having seizure for last two years, denies any prior head trauma, EEG pending. 09/09/2025: : Patient seen and examined in the ICU. Patient was intubated and sedated, ordered MRI, pending for EEG. 09/10/25 : Patient is scheduled for MRI today at 3 : 30 p.m. 09/11/23: Patient seen and examined at bedside, patient is on minimal vent setting, CPAP trial done, patient is extubated today. 09/12/25: Seen and examined at bedside, patient is little confused, patient is on Room Air, patient is off pressors and off sedation. Downgrade patient to TELE. Objective vital signs Vital Sign Date Time Temp Pulse Resp B/P (MAP) Pulse Ox O2 Delivery O2 Flow Rate FiO2 09/12/25 14:30 66 22 149/70 (96) 95 09/12/25 14:00 99.8 99.8 09/12/25 12:00 Room Air* 0 21 Total Intake and Output 09/11/25 09/11/25 09/12/25 15:00 23:00 07:00 Intake Total 490.238 ml 710 ml 500 ml Output Total 1050 ml 650 ml Balance 490.238 ml -340 ml -150 ml medications Current Medications Medications Dose Ordered Sig/Keshawn Route Start Time Stop Time Status Last Admin Dose Admin Levetiracetam 100 ml @ 400 mls/hr BID IV 09/06/25 22:00 09/12/25 09:59 400 MLS/HR Sodium Chloride 10 ml Q8HR IV 09/06/25 14:00 09/12/25 09:59 10 ML Acetaminophen 650 mg Q6HP PRN PO 09/06/25 12:30 Enoxaparin Sodium 40 mg DAILY SC 09/07/25 10:00 09/12/25 09:59 40 MG Lorazepam 1 mg Q2HPRN PRN IV 09/07/25 05:45 Aspirin 81 mg DAILY NG 09/08/25 10:00 09/12/25 10:00 81 MG Enteral Nutritional Formula 1,000 ml 30ML/HR GT 09/07/25 15:30 09/10/25 21:48 1,000 ML Pantoprazole Sodium 40 mg DAILY IV 09/08/25 10:00 09/12/25 10:00 40 MG Piperacillin Sod/ Tazobactam Sod 100 ml @ 25 mls/hr Q8HR IV 09/07/25 22:00 09/12/25 14:20 25 MLS/HR Hydralazine HCl 10 mg Q6HP PRN IV 09/08/25 19:15 09/08/25 22:02 10 MG Docusate Sodium 100 mg BIDPRN PRN GT 09/09/25 16:45 09/10/25 22:05 100 MG Sodium Chloride 1,000 ml @ 50 mls/hr Q20H IV 09/10/25 17:15 09/12/25 09:15 50 MLS/HR Examination GENERAL: Not in acute distress. HEENT: EOMI, Moist mucous membranes. No scleral icterus. No cervical lymphadenopathy. LUNGS: Clear to auscultation bilaterally. No accessory muscle use. CARDIOVASCULAR: Regular rate and rhythm. No murmur. No JVD. ABDOMEN: Soft, nontender and nondistended. No palpable masses. EXTREMITIES: No edema. Nontender. SKIN: No rashes or lesions. Warm. NEUROLOGIC: Patient is alert and oriented laboratory and microbiology Laboratory Tests 09/12/25 02:46 Test 09/12/25 02:46 Range/Units Serum Glucose 98 74-106 mg/dL Microbiology Date/Time Source Procedure Growth Status 09/06/25 18:27 Nose MRSA Screen - Final Complete 09/06/25 08:35 Urine - [place] Urine Culture - Final Complete 09/06/25 08:05 Blood Blood Culture - Final NO GROWTH AFTER 5 DAYS OF INCUBATION. Complete 09/06/25 07:39 Sputum Gram Stain - Final Complete 09/06/25 07:39 Sputum Respiratory Culture - Final Complete Problem List/Assessment/Plan Problem List/Assessment/Plan Neurology # metabolic encephalopathy due to seizure # Status epilepticus # Generalized tonic-clonic seizures # Syncope # Partial complex seizure # Tremor in both upper extremities # Essential tremors # Rule out Parkinson's disease - Keppra IV b.i.d. - Depakote home medication - neurology consult, -EEG : Moderately abnormal cerebral activity - head CT showed NO ACUTE INTRACRANIAL ABNORMALITY SEEN. - MRI brain: No acute intracranial abnormality Cardiology # NSTEMI type 2, type 1 not ruled out # Hypertension # Hyperlipidemia # sinus bradycardia - cardiology consulted - As per cardio, heparin and asprin to be held - dopamine drip for bradycardia - dopamine drip was held then restarted when patient's heart rate went below 60 - echo 09/07/25: EF 65%, moderately dilated RV and is hypokinetic - elevated troponins 74> 818> 684> 516 -ischemic workup at patient is stable as per doctor of naprapathic medicine - IV hydralazine p.r.n. for hypertension Respiratory # acute respiratory failure secondary to pneumonia on mechanical ventilation # Possible aspiration pneumonia - IV Zosyn -Extubated today, on supplemental oxygen Gastroenterology # history of GERD - GI prophylaxis Protonix - Reglan Electrolytes # Hypokalemia - replaced DVT prophylaxis: Lovenox PPI prophylaxis: Protonix Invasive access [place] catheter 09/06 Patient is downgraded to [facility] Critical Care time spent 47 minutes including patient care, chart review , excluding procedure. Case discussed with Dr. Putnam Plan discussed with: Patient, Spouse My Orders My Orders Orders - LAURA BOND RESIDENT Procedure Category Date Status Time Electrocardigram EKG 09/11/25 Resulted 16:37 Dietary Evaluation Review Comments: 1. TF Vital high Protein @60ml/hr providing 126g Protein 1440kcal, 1204ml free water, meeting pt's needs @ 136% Protein, 93% energy 2. Rassess when Pt is off vent. Expected Outcomes/Goals: Improved nutrition related lab profile, graduaul weight gain LAURA BOND RESIDENT Sep 12, 2025 15:11
--- NOTE | 2025-09-12 20:30 | DVHPN2 ---
Progress Note - Dictate Date Seen: Sep 12, 2025 Medical Necessity Reason Pt with a Central, PICC or Fol: No Subjective Mr. Morgan is a 65 years old left-handed gentleman with a history of seizure, GERD, anxiety, he was brought to the [facility] on 09/06/2025 with a chief complaint of seizure activity. I have seen and examined the patient, discussed with his nurse, mother was in the room with him, he is awake, oriented to person, place, good social skills, he follows verbal commands I did not see tremors today No seizure activity WBC/HB/PLT/MCV, 09/07/25: 7.2/13/262/90.4 CBC, 09/07/25 0829: Unremarkable K, 09/07/2025: 2.8 Lactic acid, 09/06/2025: 8.1, 4.3 Liver function tests, 09/07/2025: Unremarkable EEG, 09/08/2025: Moderately abnormal EEG CT head, 09/06/2025: NO ACUTE INTRACRANIAL ABNORMALITY SEEN MRI head 09/10/2025: No acute infarct or intracranial hemorrhage vital signs Vital Sign Date Time Temp Pulse Resp B/P (MAP) Pulse Ox O2 Delivery O2 Flow Rate FiO2 09/12/25 17:20 99.8 64 18 140/93 (109) 96 99.8 09/12/25 14:00 Room Air* 0 21 Total Intake and Output 09/11/25 09/11/25 09/12/25 15:00 23:00 07:00 Intake Total 490.238 ml 710 ml 500 ml Output Total 1050 ml 650 ml Balance 490.238 ml -340 ml -150 ml medications Current Medications Medications Dose Ordered Sig/Keshawn Route Start Time Stop Time Status Last Admin Dose Admin Levetiracetam 100 ml @ 400 mls/hr BID IV 09/06/25 22:00 09/12/25 09:59 400 MLS/HR Sodium Chloride 10 ml Q8HR IV 09/06/25 14:00 09/12/25 09:59 10 ML Acetaminophen 650 mg Q6HP PRN PO 09/06/25 12:30 Enoxaparin Sodium 40 mg DAILY SC 09/07/25 10:00 09/12/25 09:59 40 MG Lorazepam 1 mg Q2HPRN PRN IV 09/07/25 05:45 Aspirin 81 mg DAILY NG 09/08/25 10:00 09/12/25 10:00 81 MG Enteral Nutritional Formula 1,000 ml 30ML/HR GT 09/07/25 15:30 09/10/25 21:48 1,000 ML Pantoprazole Sodium 40 mg DAILY IV 09/08/25 10:00 09/12/25 10:00 40 MG Piperacillin Sod/ Tazobactam Sod 100 ml @ 25 mls/hr Q8HR IV 09/07/25 22:00 09/12/25 14:20 25 MLS/HR Hydralazine HCl 10 mg Q6HP PRN IV 09/08/25 19:15 09/08/25 22:02 10 MG Docusate Sodium 100 mg BIDPRN PRN GT 09/09/25 16:45 09/10/25 22:05 100 MG Sodium Chloride 1,000 ml @ 50 mls/hr Q20H IV 09/10/25 17:15 09/12/25 09:15 50 MLS/HR objective The patient is well-nourished and well-developed with no distress. MENTAL STATUS: Subjective CRANIAL NERVES: Pupils are equal, round and reactive, PERRL, normal conjugated eye movement, normal sensory and motor examination in bilateral trigeminal distribution, no facial weakness SENSATION: Okay to pinprick and light touch MOTOR: Normal tone in the upper and lower extremity. Normal muscle bulk. No fasciculations. Moves the arms and legs REFLEXES: Deep tendon reflexes are symmetrical. No pathological reflexes. CEREBELLAR/COORDINATION: No ataxia GAIT/STATION: deferred. laboratory and microbiology Laboratory Tests 09/12/25 02:46 Test 09/12/25 02:46 Range/Units Serum Glucose 98 74-106 mg/dL Problem List Status epileptics General realized seizures Passing out [id number], Syncope Partial complex seizure Tremor in both upper extremities Essential tremors Rule out Parkinson's disease Rule out medication effects Assessment/Plan Monitoring Supportive treatment Follow up for labs Keppra 1000 mg IV b.i.d. for now Ativan for seizure breakthrough Not treatment for the tremors/Parkinson's disease at this time GI prophylaxis DVT prophylaxis When off sedation gradually More history of the seizure, tremors once he is mentally improved More recommendation per clinical course This medical document was created using an electronic medical record system with [employer] dictation system. Although this document has been carefully reviewed, there may still be some phonetic and typographical errors. These areas are purely typographical due to imperfections of the software programs, and do not reflect any compromise in the patient's medical care. Prognosis poor Dietary Evaluation Review Comments: 1. TF Vital high Protein @60ml/hr providing 126g Protein 1440kcal, 1204ml free water, meeting pt's needs @ 136% Protein, 93% energy 2. Rassess when Pt is off vent. Expected Outcomes/Goals: Improved nutrition related lab profile, graduaul weight gain Plan discussed with: Patient, Other Total Time (mins): 35 EMIGDIO THOMPSON MD Sep 12, 2025 20:30
[2025-09-13] VITALS (9 sets, daily range): BP systolic 102–168; BP diastolic 55–104; PULSE 50–86; RESP 14–20; TEMP 98–98.9; O2SAT 95–99
[2025-09-13 06:47] LABS: Hematocrit 31.3 % (41.0-53.0); Hemoglobin 10.9 g/dL (13.5-17.5); Mean Corpuscular Hemoglobin 31.6 pg (28.0-32.0); Mean Corpuscular Volume 90.9 fL (80.0-100.0); Nucleated Red Blood Cells % 0.1 %
[2025-09-13 07:02] LABS: Albumin 3.8 g/dL (3.2-4.8); Anion Gap 12 (5-15); BUN/Creatinine Ratio 23.1 (10.0-20.0); Bilirubin, Total 0.6 mg/dL (0.2-1.0); Blood Urea Nitrogen 15 mg/dL (9-23); Calcium 9.0 mg/dL (8.7-10.4); Carbon Dioxide 22 mmol/L (20-31); Glucose 94 mg/dL (74-106); Sodium 142 mmol/L (136-145); Total Protein 6.2 g/dL (5.7-8.2)
[2025-09-13 07:04] LABS: Alanine Aminotransferase 57 U/L (7-40); Alkaline Phosphatase 160 U/L (46-116); Chloride 108 mmol/L (98-107); Potassium 3.4 mmol/L (3.5-5.1)
--- NOTE | 2025-09-13 15:31 | DVHPNRES ---
Progress Note Date Seen: Sep 13, 2025 Resident Creating Document: NAWAF KUMAR RESIDENT Has the PT tested + for MRSA If YES, has PT been informed?: No Medical Necessity Reason Pt with a Central, PICC or Fol: No Subjective Review of Systems Patient is a 65-year-old male with past medical history of anxiety, GERD, seizure disorder. as per patient had a seizure at 2:00 a.m. on 09/06/2025. Which was followed by another tonic-clonic seizure 20 minutes later. For which called 911. Upon arrival in the ER patient had another for seizures which did not turn to baseline for 1 hour. states that patient's last seizure was on August 04. Patient was intubated in the ER patient was shaking and had altered level of consciousness. states that patient did not have any recent illnesses, flu-like symptoms, sick contacts. As per patient is compliant with medications for seizure( Depakote). past surgical history: Denies any surgeries Family history: Cancer in sister, uncle Social history: Smokes marijuana, denies any cigarette, alcohol, drug use. Lives with: Spouse, at home 09/07/2025: Patient seen in the ICU. as per patient did not experience any chest pain, palpitations, shortness of breath. Overnight patient's heart rate did drop to the 30s for which dopamine was . Patient has elevated troponins, cardiology was consulted. Patient has sinus bradycardia. potassium was replaced. Started vital HP feeding. Aspirin given. Patient is too unstable to transfer. Neurology on board, As per cardiology heparin drip and aspirin to be held 09/08/2025: Patient seen and examined in the ICU. Patient was intubated and sedated, according to family patient was having seizure for last two years, denies any prior head trauma, EEG pending. 09/09/2025: : Patient seen and examined in the ICU. Patient was intubated and sedated, ordered MRI, pending for EEG. 09/10/25 : Patient is scheduled for MRI today at 3 : 30 p.m. 09/11/23: Patient seen and examined at bedside, patient is on minimal vent setting, CPAP trial done, patient is extubated today. 09/12/25: Seen and examined at bedside, patient is little confused, patient is on Room Air, patient is off pressors and off sedation. Downgrade patient to TELE. 09/13/25: Main issues today: * Hypertension with fluctuating systolic pressures [id number] and diastolic 47056 mmHg. * Potassium low at 3.4, replenished with 40 mEq IV KCl. Treatments initiated today: * Restarted home antihypertensives (LISINOPRIL). * Discontinued brito catheter * Continued PT/OT for mobility post-extubation. * Soft mechanical diet ordered The patient is clinically improving, hemodynamically stable except for elevated BP, respiratory status stable on room air, improving liver function, stable H/H, corrected hypokalemia, and progressing well in post-extubation recovery. Objective vital signs Vital Sign Date Time Temp Pulse Resp B/P (MAP) Pulse Ox O2 Delivery O2 Flow Rate FiO2 09/13/25 12:36 98.8 56 14 168/95 (119) 97 98.8 09/12/25 20:00 Room Air* 0 21 Total Intake and Output 09/12/25 09/12/25 09/13/25 15:00 23:00 07:00 Intake Total 350 ml 200 ml 700 ml Output Total 50 ml 500 ml Balance 350 ml 150 ml 200 ml medications Current Medications Medications Dose Ordered Sig/Keshawn Route Start Time Stop Time Status Last Admin Dose Admin Levetiracetam 100 ml @ 400 mls/hr BID IV 09/06/25 22:00 09/13/25 09:40 400 MLS/HR Sodium Chloride 10 ml Q8HR IV 09/06/25 14:00 09/13/25 13:53 10 ML Acetaminophen 650 mg Q6HP PRN PO 09/06/25 12:30 Enoxaparin Sodium 40 mg DAILY SC 09/07/25 10:00 09/13/25 09:42 40 MG Lorazepam 1 mg Q2HPRN PRN IV 09/07/25 05:45 Aspirin 81 mg DAILY NG 09/08/25 10:00 09/12/25 10:00 81 MG Enteral Nutritional Formula 1,000 ml 30ML/HR GT 09/07/25 15:30 09/10/25 21:48 1,000 ML Pantoprazole Sodium 40 mg DAILY IV 09/08/25 10:00 09/13/25 09:40 40 MG Piperacillin Sod/ Tazobactam Sod 100 ml @ 25 mls/hr Q8HR IV 09/07/25 22:00 09/13/25 13:53 25 MLS/HR Hydralazine HCl 10 mg Q6HP PRN IV 09/08/25 19:15 09/13/25 09:41 10 MG Docusate Sodium 100 mg BIDPRN PRN GT 09/09/25 16:45 09/10/25 22:05 100 MG Sodium Chloride 1,000 ml @ 50 mls/hr Q20H IV 09/10/25 17:15 09/13/25 04:49 50 MLS/HR Examination GENERAL: Not in acute distress. HEENT: EOMI, Moist mucous membranes. No scleral icterus. No cervical lymphadenopathy. LUNGS: Clear to auscultation bilaterally. No accessory muscle use. CARDIOVASCULAR: Regular rate and rhythm. No murmur. No JVD. ABDOMEN: Soft, nontender and nondistended. No palpable masses. EXTREMITIES: No edema. Nontender. SKIN: No rashes or lesions. Warm. NEUROLOGIC: Patient is alert and oriented laboratory and microbiology Laboratory Tests 09/13/25 05:30 Test 09/13/25 05:30 Range/Units Serum Glucose 94 74-106 mg/dL Microbiology Date/Time Source Procedure Growth Status 09/06/25 18:27 Nose MRSA Screen - Final Complete 09/06/25 08:35 Urine - [place] Urine Culture - Final Complete 09/06/25 08:05 Blood Blood Culture - Final NO GROWTH AFTER 5 DAYS OF INCUBATION. Complete 09/06/25 07:39 Sputum Gram Stain - Final Complete 09/06/25 07:39 Sputum Respiratory Culture - Final Complete Problem List/Assessment/Plan Problem List/Assessment/Plan Problem List/Assessment/Plan Neurology # metabolic encephalopathy due to seizure # Status epilepticus # Generalized tonic-clonic seizures # Syncope # Partial complex seizure # Tremor in both upper extremities # Essential tremors # Rule out Parkinson's disease - Keppra IV b.i.d. - Depakote home medication - neurology consult, -EEG : Moderately abnormal cerebral activity - head CT showed NO ACUTE INTRACRANIAL ABNORMALITY SEEN. 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 - IV hydralazine p.r.n. for hypertension Respiratory # acute respiratory failure secondary to pneumonia # Possible aspiration pneumonia - IV Zosyn -Extubated Gastroenterology # history of GERD - GI prophylaxis Protonix - Reglan Electrolytes # Hypokalemia - replaced DVT prophylaxis: Lovenox PPI prophylaxis: Protonix Invasive access Brito catheter 09/06- 09/13 * Voiding with bedpan; no Brito catheter. Patient is downgraded to Tele Critical Care time spent 47 minutes including patient care, chart review , excluding procedure. Case discussed with Dr. Putnam Plan discussed with: Patient, Spouse Plan discussed with: Patient, Other (RN) My Orders My Orders Orders - NAWAF KUMAR RESIDENT Procedure Category Date Status Time Pt Request For Service PT 09/13/25 Logged 15:15 Discontinue Brito DENYS 09/13/25 In Process Catheter 15:15 Urinal Or Bedpan As DENYS 09/13/25 In Process Needed 15:15 Complete Blood Count LAB 09/14/25 Verified 04:00 Comprehensive LAB 09/14/25 Verified Metabolic Panel 04:00 Dietary Evaluation Review Comments: 1. TF Vital high Protein @60ml/hr providing 126g Protein 1440kcal, 1204ml free water, meeting pt's needs @ 136% Protein, 93% energy 2. Rassess when Pt is off vent. Expected Outcomes/Goals: Improved nutrition related lab profile, graduaul weight gain NAWAF KUMAR RESIDENT Sep 13, 2025 15:31
--- NOTE | 2025-09-13 17:48 | ECG ---
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
[2025-09-13] MEDS: LISINOPRIL 5 MG TAB PO SCH (18:02)
--- NOTE | 2025-09-13 20:14 | DVHPN2 ---
Progress Note - Dictate Date Seen: Sep 13, 2025 Has the PT tested + for MRSA If YES, has PT been informed?: No Medical Necessity Reason Pt with a Central, PICC or Fol: No Subjective Mr. Morgan is a 65 years old left-handed gentleman with a history of seizure, GERD, anxiety, he was brought to the [facility] on 09/06/2025 with a chief complaint of seizure activity. 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 related during the seizure, he became nonresponsive, curled up, shaking in the arms, and the legs (repetitive flexing and extension of the hips, and knees), head tilted to the right side, eyes rolling back. Was no associated biting for incontinence I did not see tremors today No seizure activity today WBC/HB/PLT/MCV, 09/07/25: 7.2/13/262/90.4 CBC, 09/07/25 0829: Unremarkable K, 09/07/2025: 2.8 Lactic acid, 09/06/2025: 8.1, 4.3 Liver function tests, 09/07/2025: Unremarkable EEG, 09/08/2025: Moderately abnormal EEG CT head, 09/06/2025: NO ACUTE INTRACRANIAL ABNORMALITY SEEN MRI head 09/10/2025: No acute infarct or intracranial hemorrhage vital signs Vital Sign Date Time Temp Pulse Resp B/P (MAP) Pulse Ox O2 Delivery O2 Flow Rate FiO2 09/13/25 18:02 157/101 09/13/25 16:47 98.6 86 18 99 98.6 09/13/25 07:30 Room Air* 0 21 Total Intake and Output 09/12/25 09/12/25 09/13/25 15:00 23:00 07:00 Intake Total 350 ml 200 ml 700 ml Output Total 50 ml 500 ml Balance 350 ml 150 ml 200 ml medications Current Medications Medications Dose Ordered Sig/Keshawn Route Start Time Stop Time Status Last Admin Dose Admin Levetiracetam 100 ml @ 400 mls/hr BID IV 09/06/25 22:00 09/13/25 09:40 400 MLS/HR Sodium Chloride 10 ml Q8HR IV 09/06/25 14:00 09/13/25 13:53 10 ML Acetaminophen 650 mg Q6HP PRN PO 09/06/25 12:30 Enoxaparin Sodium 40 mg DAILY SC 09/07/25 10:00 09/13/25 09:42 40 MG Lorazepam 1 mg Q2HPRN PRN IV 09/07/25 05:45 Aspirin 81 mg DAILY NG 09/08/25 10:00 09/12/25 10:00 81 MG Enteral Nutritional Formula 1,000 ml 30ML/HR GT 09/07/25 15:30 09/10/25 21:48 1,000 ML Pantoprazole Sodium 40 mg DAILY IV 09/08/25 10:00 09/13/25 09:40 40 MG Piperacillin Sod/ Tazobactam Sod 100 ml @ 25 mls/hr Q8HR IV 09/07/25 22:00 09/13/25 13:53 25 MLS/HR Hydralazine HCl 10 mg Q6HP PRN IV 09/08/25 19:15 09/13/25 09:41 10 MG Docusate Sodium 100 mg BIDPRN PRN GT 09/09/25 16:45 09/10/25 22:05 100 MG Sodium Chloride 1,000 ml @ 50 mls/hr Q20H IV 09/10/25 17:15 09/13/25 04:49 50 MLS/HR Lisinopril 10 mg DAILY PO 09/13/25 16:00 09/13/25 18:02 10 MG objective The patient is well-nourished and well-developed with no distress. MENTAL STATUS: Subjective CRANIAL NERVES: Pupils are equal, round and reactive, PERRL, normal conjugated eye movement, normal sensory and motor examination in bilateral trigeminal distribution, no facial weakness SENSATION: Okay to pinprick and light touch MOTOR: Normal tone in the upper and lower extremity. Normal muscle bulk. No fasciculations. Moves the arms and legs REFLEXES: Deep tendon reflexes are symmetrical. No pathological reflexes. CEREBELLAR/COORDINATION: No ataxia GAIT/STATION: deferred. laboratory and microbiology Laboratory Tests 09/13/25 05:30 Test 09/13/25 05:30 Range/Units Serum Glucose 94 74-106 mg/dL Problem List Status epileptics General realized seizures Passing out [id number], Syncope Partial complex seizure Tremor in both upper extremities Essential tremors Rule out Parkinson's disease Rule out medication effects Assessment/Plan Monitoring Supportive treatment Follow up for labs Keppra 1000 mg IV b.i.d. for now Ativan for seizure breakthrough Not treatment for the tremors/Parkinson's disease at this time GI prophylaxis DVT prophylaxis More history of the seizure, tremors once he is mentally improved More recommendation per clinical course This medical document was created using an electronic medical record system with [employer] dictation system. Although this document has been carefully reviewed, there may still be some phonetic and typographical errors. These areas are purely typographical due to imperfections of the software programs, and do not reflect any compromise in the patient's medical care. Prognosis poor Dietary Evaluation Review Comments: 1. TF Vital high Protein @60ml/hr providing 126g Protein 1440kcal, 1204ml free water, meeting pt's needs @ 136% Protein, 93% energy 2. Rassess when Pt is off vent. Expected Outcomes/Goals: Improved nutrition related lab profile, graduaul weight gain Plan discussed with: Patient, Spouse, Other Total Time (mins): 35 EMIGDIO THOMPSON MD Sep 13, 2025 20:14
--- NOTE | 2025-09-13 21:11 | DVHPN2 ---
Progress Note - Dictate Date Seen: Sep 13, 2025 Medical Necessity Reason Pt with a Central, PICC or Fol: No Subjective Patient was seen and evaluated in follow up.Patient was downgraded to telemetry. Patient is following commands. K 3.4, CL 108, ALT 57. Telemetry reviewed. vital signs Vital Sign Date Time Temp Pulse Resp B/P (MAP) Pulse Ox O2 Delivery O2 Flow Rate FiO2 09/13/25 09:41 167/93 09/13/25 08:38 98.7 50 14 95 98.7 09/12/25 20:00 Room Air* 0 21 Total Intake and Output 09/12/25 09/12/25 09/13/25 15:00 23:00 07:00 Intake Total 350 ml 200 ml 700 ml Output Total 50 ml 500 ml Balance 350 ml 150 ml 200 ml medications Current Medications Medications Dose Ordered Sig/Keshawn Route Start Time Stop Time Status Last Admin Dose Admin Levetiracetam 100 ml @ 400 mls/hr BID IV 09/06/25 22:00 09/13/25 09:40 400 MLS/HR Sodium Chloride 10 ml Q8HR IV 09/06/25 14:00 09/13/25 06:23 10 ML Acetaminophen 650 mg Q6HP PRN PO 09/06/25 12:30 Enoxaparin Sodium 40 mg DAILY SC 09/07/25 10:00 09/13/25 09:42 40 MG Lorazepam 1 mg Q2HPRN PRN IV 09/07/25 05:45 Aspirin 81 mg DAILY NG 09/08/25 10:00 09/12/25 10:00 81 MG Enteral Nutritional Formula 1,000 ml 30ML/HR GT 09/07/25 15:30 09/10/25 21:48 1,000 ML Pantoprazole Sodium 40 mg DAILY IV 09/08/25 10:00 09/13/25 09:40 40 MG Piperacillin Sod/ Tazobactam Sod 100 ml @ 25 mls/hr Q8HR IV 09/07/25 22:00 09/13/25 06:22 25 MLS/HR Hydralazine HCl 10 mg Q6HP PRN IV 09/08/25 19:15 09/13/25 09:41 10 MG Docusate Sodium 100 mg BIDPRN PRN GT 09/09/25 16:45 09/10/25 22:05 100 MG Sodium Chloride 1,000 ml @ 50 mls/hr Q20H IV 09/10/25 17:15 09/13/25 04:49 50 MLS/HR objective GENERAL: Alert and oriented x 3. No acute distress. EYES: PERRL, EOMI. Anicteric. HENT: Moist mucous membranes. LUNGS: Decreased breath sounds. CARDIOVASCULAR: Regular rate and rhythm. ABDOMEN: Soft, nontender and nondistended. EXTREMITIES: No edema. SKIN: Warm, dry. laboratory and microbiology Laboratory Tests 09/13/25 05:30 Test 09/13/25 05:30 Range/Units Serum Glucose 94 74-106 mg/dL Problem List Elevated troponins. Sinus bradycardia. Hypokalemia. Seizures. HLD. HTN. Assessment/Plan Continued all current supportive medical care. DVT and GI prophylactics. IV Hydralazine for SBP >150. IV antibiotics as ordered. Additional plan as per the hospital course. Dietary Evaluation Review Comments: 1. TF Vital high Protein @60ml/hr providing 126g Protein 1440kcal, 1204ml free water, meeting pt's needs @ 136% Protein, 93% energy 2. Rassess when Pt is off vent. Expected Outcomes/Goals: Improved nutrition related lab profile, graduaul weight gain Plan discussed with: Patient MOISES HANKINS MD Sep 13, 2025 11:25
[2025-09-14] VITALS (8 sets, daily range): BP systolic 116–165; BP diastolic 71–87; PULSE 52–106; RESP 15–20; TEMP 97.2–99.1; O2SAT 94–98
[2025-09-14] MEDS: POTASSIUM CHL 20MEQ/100ML 100 ML IV SCH (03:58)
[2025-09-14 06:50] LABS: Hematocrit 30.6 % (41.0-53.0); Hemoglobin 10.7 g/dL (13.5-17.5); Mean Corpuscular Hemoglobin 31.8 pg (28.0-32.0); Mean Corpuscular Volume 90.9 fL (80.0-100.0); Nucleated Red Blood Cells % 0.1 %
[2025-09-14 07:00] LABS: Albumin 3.8 g/dL (3.2-4.8); Anion Gap 14 (5-15); BUN/Creatinine Ratio 25.4 (10.0-20.0); Bilirubin, Total 0.6 mg/dL (0.2-1.0); Blood Urea Nitrogen 16 mg/dL (9-23); Calcium 9.0 mg/dL (8.7-10.4); Carbon Dioxide 21 mmol/L (20-31); Sodium 142 mmol/L (136-145); Total Protein 6.3 g/dL (5.7-8.2)
[2025-09-14 07:03] LABS: Alanine Aminotransferase 45 U/L (7-40); Alkaline Phosphatase 152 U/L (46-116); Chloride 107 mmol/L (98-107); Glucose 109 mg/dL (74-106); Potassium 3.4 mmol/L (3.5-5.1)
[2025-09-14] MEDS: LISINOPRIL 5 MG TAB ONE ×2 (10:59→11:03)
--- NOTE | 2025-09-14 13:44 | DVHPNRES ---
Progress Note Date Seen: Sep 14, 2025 Resident Creating Document: LAURA BOND RESIDENT Has the PT tested + for MRSA If YES, has PT been informed?: No Medical Necessity Reason Pt with a Central, PICC or Fol: No Subjective Review of Systems Patient is a 65-year-old male with past medical history of anxiety, GERD, seizure disorder. as per patient had a seizure at 2:00 a.m. on 09/06/2025. Which was followed by another tonic-clonic seizure 20 minutes later. For which called 911. Upon arrival in the ER patient had another for seizures which did not turn to baseline for 1 hour. states that patient's last seizure was on August 04. Patient was intubated in the ER patient was shaking and had altered level of consciousness. states that patient did not have any recent illnesses, flu-like symptoms, sick contacts. As per patient is compliant with medications for seizure( Depakote). past surgical history: Denies any surgeries Family history: Cancer in sister, uncle Social history: Smokes marijuana, denies any cigarette, alcohol, drug use. Lives with: Spouse, at home 09/07/2025: Patient seen in the ICU. as per patient did not experience any chest pain, palpitations, shortness of breath. Overnight patient's heart rate did drop to the 30s for which dopamine was . Patient has elevated troponins, cardiology was consulted. Patient has sinus bradycardia. potassium was replaced. Started vital HP feeding. Aspirin given. Patient is too unstable to transfer. Neurology on board, As per cardiology heparin drip and aspirin to be held 09/08/2025: Patient seen and examined in the ICU. Patient was intubated and sedated, according to family patient was having seizure for last two years, denies any prior head trauma, EEG pending. 09/09/2025: : Patient seen and examined in the ICU. Patient was intubated and sedated, ordered MRI, pending for EEG. 09/10/25 : Patient is scheduled for MRI today at 3 : 30 p.m. 09/11/23: Patient seen and examined at bedside, patient is on minimal vent setting, CPAP trial done, patient is extubated today. 09/12/25: Seen and examined at bedside, patient is little confused, patient is on Room Air, patient is off pressors and off sedation. Downgrade patient to TELE. 09/14/25: Patient seen and examined at bedside, no new complaints, no seizure- like activity no tremor. Patient is working with PT Objective vital signs Vital Sign Date Time Temp Pulse Resp B/P (MAP) Pulse Ox O2 Delivery O2 Flow Rate FiO2 09/14/25 13:00 99.1 54 18 155/87 (109) 97 99.1 09/14/25 08:00 Room Air* 0 21 Total Intake and Output 09/13/25 09/13/25 09/14/25 15:00 23:00 07:00 Intake Total 300 ml 400 ml Output Total 550 ml 900 ml Balance -250 ml -500 ml medications Current Medications Medications Dose Ordered Sig/Keshawn Route Start Time Stop Time Status Last Admin Dose Admin Levetiracetam 100 ml @ 400 mls/hr BID IV 09/06/25 22:00 09/14/25 10:51 400 MLS/HR Sodium Chloride 10 ml Q8HR IV 09/06/25 14:00 09/14/25 06:17 10 ML Acetaminophen 650 mg Q6HP PRN PO 09/06/25 12:30 Enoxaparin Sodium 40 mg DAILY SC 09/07/25 10:00 09/14/25 10:52 40 MG Lorazepam 1 mg Q2HPRN PRN IV 09/07/25 05:45 Aspirin 81 mg DAILY NG 09/08/25 10:00 09/14/25 10:52 81 MG Enteral Nutritional Formula 1,000 ml 30ML/HR GT 09/07/25 15:30 09/10/25 21:48 1,000 ML Pantoprazole Sodium 40 mg DAILY IV 09/08/25 10:00 09/14/25 11:02 40 MG Piperacillin Sod/ Tazobactam Sod 100 ml @ 25 mls/hr Q8HR IV 09/07/25 22:00 09/14/25 06:17 25 MLS/HR Hydralazine HCl 10 mg Q6HP PRN IV 09/08/25 19:15 09/13/25 09:41 10 MG Docusate Sodium 100 mg BIDPRN PRN GT 09/09/25 16:45 09/10/25 22:05 100 MG Sodium Chloride 1,000 ml @ 50 mls/hr Q20H IV 09/10/25 17:15 09/13/25 04:49 50 MLS/HR Lisinopril 10 mg DAILY PO 09/13/25 16:00 09/14/25 11:02 10 MG Examination GENERAL: Not in acute distress. HEENT: EOMI, Moist mucous membranes. No scleral icterus. No cervical lymphadenopathy. LUNGS: Clear to auscultation bilaterally. No accessory muscle use. CARDIOVASCULAR: Regular rate and rhythm. No murmur. No JVD. ABDOMEN: Soft, nontender and nondistended. No palpable masses. EXTREMITIES: No edema. Nontender. SKIN: No rashes or lesions. Warm. NEUROLOGIC: Patient is alert and oriented laboratory and microbiology Laboratory Tests 09/14/25 05:04 Test 09/14/25 05:04 Range/Units Serum Glucose 109 H 74-106 mg/dL Microbiology Date/Time Source Procedure Growth Status 09/06/25 18:27 Nose MRSA Screen - Final Complete 09/06/25 08:35 Urine - [place] Urine Culture - Final Complete 09/06/25 08:05 Blood Blood Culture - Final NO GROWTH AFTER 5 DAYS OF INCUBATION. Complete 09/06/25 07:39 Sputum Gram Stain - Final Complete 09/06/25 07:39 Sputum Respiratory Culture - Final Complete Problem List/Assessment/Plan Problem List/Assessment/Plan Neurology # metabolic encephalopathy due to seizure # Status epilepticus # Generalized tonic-clonic seizures # Syncope # Partial complex seizure # Tremor in both upper extremities # Essential tremors # Rule out Parkinson's disease - Keppra IV b.i.d. - Depakote home medication - neurology consult, -EEG : Moderately abnormal cerebral activity - head CT showed NO ACUTE INTRACRANIAL ABNORMALITY SEEN. 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 for hypertension Respiratory # acute respiratory failure secondary to pneumonia on mechanical ventilation # Possible aspiration pneumonia - IV Zosyn -Extubated today, on supplemental oxygen Gastroenterology # history of GERD - GI prophylaxis Protonix - Reglan Electrolytes # Hypokalemia - replaced DVT prophylaxis: Lovenox PPI prophylaxis: Protonix Patient is downgraded to TELE Patient is unsafe for transfer. Case discussed with Dr. Putnam Plan discussed with: Patient, Spouse Dietary Evaluation Review Comments: 1. TF Vital high Protein @60ml/hr providing 126g Protein 1440kcal, 1204ml free water, meeting pt's needs @ 136% Protein, 93% energy 2. Rassess when Pt is off vent. Expected Outcomes/Goals: Improved nutrition related lab profile, graduaul weight gain LAURA BOND RESIDENT Sep 14, 2025 13:44
--- NOTE | 2025-09-14 18:35 | DVHPN2 ---
Progress Note - Dictate Date Seen: Sep 14, 2025 Has the PT tested + for MRSA If YES, has PT been informed?: No Medical Necessity Reason Pt with a Central, PICC or Fol: No Subjective Patient was seen and evaluated in follow up. Sitter is at bedside. Patient is receiving wound care. K 3.4, ALT 45. Telemetry reviewed. vital signs Vital Sign Date Time Temp Pulse Resp B/P (MAP) Pulse Ox O2 Delivery O2 Flow Rate FiO2 09/14/25 11:02 135/87 09/14/25 09:00 98.8 60 20 98 98.8 09/14/25 08:00 Room Air* 0 21 Total Intake and Output 09/13/25 09/13/25 09/14/25 15:00 23:00 07:00 Intake Total 300 ml 400 ml Output Total 550 ml 900 ml Balance -250 ml -500 ml medications Current Medications Medications Dose Ordered Sig/Keshawn Route Start Time Stop Time Status Last Admin Dose Admin Levetiracetam 100 ml @ 400 mls/hr BID IV 09/06/25 22:00 09/14/25 10:51 400 MLS/HR Sodium Chloride 10 ml Q8HR IV 09/06/25 14:00 09/14/25 06:17 10 ML Acetaminophen 650 mg Q6HP PRN PO 09/06/25 12:30 Enoxaparin Sodium 40 mg DAILY SC 09/07/25 10:00 09/14/25 10:52 40 MG Lorazepam 1 mg Q2HPRN PRN IV 09/07/25 05:45 Aspirin 81 mg DAILY NG 09/08/25 10:00 09/14/25 10:52 81 MG Enteral Nutritional Formula 1,000 ml 30ML/HR GT 09/07/25 15:30 09/10/25 21:48 1,000 ML Pantoprazole Sodium 40 mg DAILY IV 09/08/25 10:00 09/14/25 11:02 40 MG Piperacillin Sod/ Tazobactam Sod 100 ml @ 25 mls/hr Q8HR IV 09/07/25 22:00 09/14/25 06:17 25 MLS/HR Hydralazine HCl 10 mg Q6HP PRN IV 09/08/25 19:15 09/13/25 09:41 10 MG Docusate Sodium 100 mg BIDPRN PRN GT 09/09/25 16:45 11/19/25 22:05 100 MG Sodium Chloride 1,000 ml @ 50 mls/hr Q20H IV 09/10/25 17:15 09/13/25 04:49 50 MLS/HR Lisinopril 10 mg DAILY PO 09/13/25 16:00 09/14/25 11:02 10 MG objective GENERAL: Alert and oriented x 3. No acute distress. EYES: PERRL, EOMI. Anicteric. HENT: Moist mucous membranes. LUNGS: Decreased breath sounds. CARDIOVASCULAR: Regular rate and rhythm. ABDOMEN: Soft, nontender and nondistended. EXTREMITIES: No edema. SKIN: Warm, dry. laboratory and microbiology Laboratory Tests 09/14/25 05:04 Test 09/14/25 05:04 Range/Units Serum Glucose 109 H 74-106 mg/dL Problem List Elevated troponins. Sinus bradycardia. Hypokalemia. Seizures. HLD. HTN. Assessment/Plan Continued all current supportive medical care. Lisinopril. DVT and GI prophylactics. IV antibiotics as ordered. Additional plan as per the hospital course. Dietary Evaluation Review Comments: 1. TF Vital high Protein @60ml/hr providing 126g Protein 1440kcal, 1204ml free water, meeting pt's needs @ 136% Protein, 93% energy 2. Rassess when Pt is off vent. Expected Outcomes/Goals: Improved nutrition related lab profile, graduaul weight gain Plan discussed with: Patient MOISES HANKINS MD Sep 14, 2025 13:26
--- NOTE | 2025-09-14 21:50 | DVHPN2 ---
Progress Note - Dictate Date Seen: Sep 14, 2025 Has the PT tested + for MRSA If YES, has PT been informed?: No Medical Necessity Reason Pt with a Central, PICC or Fol: No Subjective Mr. Morgan is a 65 years old left-handed gentleman with a history of seizure, GERD, anxiety, he was brought to the [facility] on 09/06/2025 with a chief complaint of seizure activity. I have seen and examined the patient, discussed with his nurse, mother was in the room with him, he is awake, oriented to person, place, good social skills, he follows verbal commands He can not give more history about his seizure I did not see tremors today No seizure activity today WBC/HB/PLT/MCV, 09/07/25: 7.2/13/262/90.4 CBC, 09/07/25 0829: Unremarkable K, 09/07/2025: 2.8 Lactic acid, 09/06/2025: 8.1, 4.3 Liver function tests, 09/07/2025: Unremarkable EEG, 09/08/2025: Moderately abnormal EEG CT head, 09/06/2025: NO ACUTE INTRACRANIAL ABNORMALITY SEEN MRI head 09/10/2025: No acute infarct or intracranial hemorrhage vital signs Vital Sign Date Time Temp Pulse Resp B/P (MAP) Pulse Ox O2 Delivery O2 Flow Rate FiO2 09/14/25 21:00 97.9 53 17 165/81 (109) 94 97.9 09/14/25 08:00 Room Air* 0 21 Total Intake and Output 09/13/25 09/13/25 09/14/25 15:00 23:00 07:00 Intake Total 300 ml 400 ml Output Total 550 ml 900 ml Balance -250 ml -500 ml medications Current Medications Medications Dose Ordered Sig/Keshawn Route Start Time Stop Time Status Last Admin Dose Admin Levetiracetam 100 ml @ 400 mls/hr BID IV 09/06/25 22:00 09/14/25 10:51 400 MLS/HR Sodium Chloride 10 ml Q8HR IV 09/06/25 14:00 09/14/25 14:00 10 ML Acetaminophen 650 mg Q6HP PRN PO 09/06/25 12:30 Enoxaparin Sodium 40 mg DAILY SC 09/07/25 10:00 09/14/25 10:52 40 MG Lorazepam 1 mg Q2HPRN PRN IV 09/07/25 05:45 Aspirin 81 mg DAILY NG 09/08/25 10:00 09/14/25 10:52 81 MG Enteral Nutritional Formula 1,000 ml 30ML/HR GT 09/07/25 15:30 09/10/25 21:48 1,000 ML Pantoprazole Sodium 40 mg DAILY IV 09/08/25 10:00 09/14/25 11:02 40 MG Piperacillin Sod/ Tazobactam Sod 100 ml @ 25 mls/hr Q8HR IV 09/07/25 22:00 09/14/25 17:42 25 MLS/HR Hydralazine HCl 10 mg Q6HP PRN IV 09/08/25 19:15 09/13/25 09:41 10 MG Docusate Sodium 100 mg BIDPRN PRN GT 09/09/25 16:45 09/10/25 22:05 100 MG Sodium Chloride 1,000 ml @ 50 mls/hr Q20H IV 09/10/25 17:15 09/13/25 04:49 50 MLS/HR Lisinopril 10 mg DAILY PO 09/13/25 16:00 09/14/25 11:02 10 MG objective The patient is well-nourished and well-developed with no distress. MENTAL STATUS: Subjective CRANIAL NERVES: Pupils are equal, round and reactive, PERRL, normal conjugated eye movement, normal sensory and motor examination in bilateral trigeminal distribution, no facial weakness SENSATION: Okay to pinprick and light touch MOTOR: Normal tone in the upper and lower extremity. Normal muscle bulk. No fasciculations. Moves the arms and legs REFLEXES: Deep tendon reflexes are symmetrical. No pathological reflexes. CEREBELLAR/COORDINATION: No ataxia GAIT/STATION: deferred. laboratory and microbiology Laboratory Tests 09/14/25 05:04 Test 09/14/25 05:04 Range/Units Serum Glucose 109 H 74-106 mg/dL Problem List Status epileptics General realized seizures Passing out [id number], Syncope Partial complex seizure Tremor in both upper extremities Essential tremors Rule out Parkinson's disease Rule out medication effects Assessment/Plan Monitoring Supportive treatment Follow up for labs Keppra 1000 mg IV b.i.d. for now Ativan for seizure breakthrough Not treatment for the tremors/Parkinson's disease at this time GI prophylaxis DVT prophylaxis More history of the seizure, tremors once he is mentally improved More recommendation per clinical course This medical document was created using an electronic medical record system with [employer] computerized dictation system. Although this document has been carefully reviewed, there may still be some phonetic and typographical errors. These areas are purely typographical due to imperfections of the software programs, and do not reflect any compromise in the patient's medical care. Prognosis poor Dietary Evaluation Review Comments: 1. TF Vital high Protein @60ml/hr providing 126g Protein 1440kcal, 1204ml free water, meeting pt's needs @ 136% Protein, 93% energy 2. Rassess when Pt is off vent. Expected Outcomes/Goals: Improved nutrition related lab profile, graduaul weight gain Plan discussed with: Other EMIGDIO THOMPSON MD Sep 14, 2025 21:50
[2025-09-15] VITALS (10 sets, daily range): BP systolic 136–160; BP diastolic 77–88; PULSE 53–79; RESP 8–20; TEMP 97.9–98.9; O2SAT 94–98
--- NOTE | 2025-09-15 09:00 | DVHPNRES ---
Progress Note Date Seen: Sep 15, 2025 Resident Creating Document: LAURA BOND RESIDENT Has the PT tested + for MRSA If YES, has PT been informed?: No Medical Necessity Reason Pt with a Central, PICC or Fol: No Subjective Review of Systems Patient is a 65-year-old male with past medical history of anxiety, GERD, seizure disorder. as per patient had a seizure at 2:00 a.m. on 09/06/2025. Which was followed by another tonic-clonic seizure 20 minutes later. For which called 911. Upon arrival in the ER patient had another for seizures which did not turn to baseline for 1 hour. states that patient's last seizure was on August 04. Patient was intubated in the ER patient was shaking and had altered level of consciousness. states that patient did not have any recent illnesses, flu-like symptoms, sick contacts. As per patient is compliant with medications for seizure( Depakote). past surgical history: Denies any surgeries Family history: Cancer in sister, uncle Social history: Smokes marijuana, denies any cigarette, alcohol, drug use. Lives with: Spouse, at home 09/07/2025: Patient seen in the ICU. as per patient did not experience any chest pain, palpitations, shortness of breath. Overnight patient's heart rate did drop to the 30s for which dopamine was . Patient has elevated troponins, cardiology was consulted. Patient has sinus bradycardia. potassium was replaced. Started vital HP feeding. Aspirin given. Patient is too unstable to transfer. Neurology on board, As per cardiology heparin drip and aspirin to be held 09/08/2025: Patient seen and examined in the ICU. Patient was intubated and sedated, according to family patient was having seizure for last two years, denies any prior head trauma, EEG pending. 09/09/2025: : Patient seen and examined in the ICU. Patient was intubated and sedated, ordered MRI, pending for EEG. 09/10/25 : Patient is scheduled for MRI today at 3 : 30 p.m. 09/11/23: Patient seen and examined at bedside, patient is on minimal vent setting, CPAP trial done, patient is extubated today. 09/12/25: Seen and examined at bedside, patient is little confused, patient is on Room Air, patient is off pressors and off sedation. Downgrade patient to TELE. 09/14/25: Patient seen and examined at bedside, no new complaints, no seizure- like activity no tremor. Patient is working with PT 09/15/25: Patient seen and examined at bedside, no new complaints, no seizure- like activity no tremor. Patient is working with PT, patient was out of pain but Patient did not walk it Objective vital signs Vital Sign Date Time Temp Pulse Resp B/P (MAP) Pulse Ox O2 Delivery O2 Flow Rate FiO2 09/15/25 06:00 98.7 61 18 156/88 (110) 96 98.7 09/14/25 20:00 Room Air* 0 21 Total Intake and Output 09/14/25 09/14/25 09/15/25 15:00 23:00 07:00 Intake Total 100 ml 640 ml 900 ml Output Total 525 ml Balance 100 ml 115 ml 900 ml medications Current Medications Medications Dose Ordered Sig/Keshawn Route Start Time Stop Time Status Last Admin Dose Admin Levetiracetam 100 ml @ 400 mls/hr BID IV 09/06/25 22:00 09/14/25 22:18 400 MLS/HR Sodium Chloride 10 ml Q8HR IV 09/06/25 14:00 09/15/25 05:37 10 ML Acetaminophen 650 mg Q6HP PRN PO 09/06/25 12:30 Enoxaparin Sodium 40 mg DAILY SC 09/07/25 10:00 09/14/25 10:52 40 MG Lorazepam 1 mg Q2HPRN PRN IV 09/07/25 05:45 Aspirin 81 mg DAILY NG 09/08/25 10:00 09/14/25 10:52 81 MG Enteral Nutritional Formula 1,000 ml 30ML/HR GT 09/07/25 15:30 09/10/25 21:48 1,000 ML Pantoprazole Sodium 40 mg DAILY IV 09/08/25 10:00 09/14/25 11:02 40 MG Piperacillin Sod/ Tazobactam Sod 100 ml @ 25 mls/hr Q8HR IV 09/07/25 22:00 09/15/25 05:37 25 MLS/HR Hydralazine HCl 10 mg Q6HP PRN IV 09/08/25 19:15 09/13/25 09:41 10 MG Docusate Sodium 100 mg BIDPRN PRN GT 09/09/25 16:45 09/10/25 22:05 100 MG Sodium Chloride 1,000 ml @ 50 mls/hr Q20H IV 09/10/25 17:15 09/13/25 04:49 50 MLS/HR Lisinopril 10 mg DAILY PO 09/13/25 16:00 09/14/25 11:02 10 MG Examination GENERAL: Not in acute distress. HEENT: EOMI, Moist mucous membranes. No scleral icterus. No cervical lymphadenopathy. LUNGS: Clear to auscultation bilaterally. No accessory muscle use. CARDIOVASCULAR: Regular rate and rhythm. No murmur. No JVD. ABDOMEN: Soft, nontender and nondistended. No palpable masses. EXTREMITIES: No edema. Nontender. SKIN: No rashes or lesions. Warm. NEUROLOGIC: Patient is alert and oriented laboratory and microbiology Laboratory Tests 09/14/25 05:04 Test 09/14/25 05:04 Range/Units Serum Glucose 109 H 74-106 mg/dL Microbiology Date/Time Source Procedure Growth Status 09/06/25 18:27 Nose MRSA Screen - Final Complete 09/06/25 08:35 Urine - [place] Urine Culture - Final Complete 09/06/25 08:05 Blood Blood Culture - Final NO GROWTH AFTER 5 DAYS OF INCUBATION. Complete 09/06/25 07:39 Sputum Gram Stain - Final Complete 09/06/25 07:39 Sputum Respiratory Culture - Final Complete Problem List/Assessment/Plan Problem List/Assessment/Plan Neurology # metabolic encephalopathy due to seizure # Status epilepticus # Generalized tonic-clonic seizures # Syncope # Partial complex seizure # Tremor in both upper extremities # Essential tremors # Rule out Parkinson's disease - Keppra 1000 mg PO BID - Depakote home medication - neurology consult, -EEG : Moderately abnormal cerebral activity - head CT showed NO ACUTE INTRACRANIAL ABNORMALITY SEEN. - MRI brain: No acute intracranial abnormality Cardiology # NSTEMI type 2, type 1 not ruled out # Hypertension # Hyperlipidemia # sinus bradycardia - cardiology consulted - As per cardio, heparin and asprin to be held - dopamine drip for bradycardia - dopamine drip was held then restarted when patient's heart rate went below 60 - echo 09/07/25: EF 65%, moderately dilated RV and is hypokinetic - elevated troponins 74> 818> 684> 516 -ischemic workup at patient is stable as per manager mac - IV hydralazine p.r.n. for hypertension Respiratory # acute respiratory failure secondary to pneumonia on mechanical ventilation # Possible aspiration pneumonia - IV Zosyn -Extubated today, on supplemental oxygen - ordered chest x-ray Gastroenterology # history of GERD - GI prophylaxis Protonix - Reglan Electrolytes # Hypokalemia - replaced DVT prophylaxis: Lovenox PPI prophylaxis: Protonix Patient is unsafe for transfer. advance care planning- full code- time spent 19 mins Case discussed with Dr. Hatch Plan discussed with: Patient, Spouse My Orders My Orders Orders - LAURA BOND Procedure Category Date Status Time D/C [place] DENYS 09/14/25 In Process 14:30 Basic Metabolic Panel LAB 09/15/25 Logged 08:56 Dietary Evaluation Review Comments: 1. TF Vital high Protein @60ml/hr providing 126g Protein 1440kcal, 1204ml free water, meeting pt's needs @ 136% Protein, 93% energy 2. Rassess when Pt is off vent. Expected Outcomes/Goals: Improved nutrition related lab profile, graduaul weight gain Date of Service: Sep 15, 2025 Billing Provider: OMI HATCH MD Common Visit Codes: [id number] INP/OBS CARE(HIGH) Secondary Visit Codes: [id number] CARE PLAN 30 MINUTES LAURA BOND Sep 15, 2025 09:00 OMI HATCH MD Sep 16, 2025 14:40
[2025-09-15 11:09] LABS: Chloride 104 mmol/L (98-107); Sodium 141 mmol/L (136-145)
[2025-09-15 11:10] LABS: Anion Gap 15 (5-15); Carbon Dioxide 22 mmol/L (20-31)
[2025-09-15 11:11] LABS: Calcium 9.8 mg/dL (8.7-10.4); Potassium 3.4 mmol/L (3.5-5.1)
[2025-09-15 11:15] LABS: BUN/Creatinine Ratio 18.8 (10.0-20.0); Blood Urea Nitrogen 13 mg/dL (9-23); Glucose 84 mg/dL (74-106)
[2025-09-15] MEDS: LISINOPRIL 5 MG TAB ONE (15:19)
[2025-09-15] MEDS: LISINOPRIL 20 MG TAB ONE (15:21)
[2025-09-15] MEDS: POTASSIUM CHL 20MEQ/100ML 200 ML IV ONE (15:21)
[2025-09-15] MEDS: POTASSIUM EFFERVESENT TAB 25 MEQ PO ONE (15:33)
--- NOTE | 2025-09-15 16:43 | DVHPN2 ---
Progress Note - Dictate Date Seen: Sep 15, 2025 Has the PT tested + for MRSA If YES, has PT been informed?: No Medical Necessity Reason Pt with a Central, PICC or Fol: No Subjective Patient was seen and evaluated in follow up. Sitter is at bedside. Patient able to follow verbal commands. K 3.4, potassium was replaced. Telemetry reviewed. vital signs Vital Sign Date Time Temp Pulse Resp B/P (MAP) Pulse Ox O2 Delivery O2 Flow Rate FiO2 09/15/25 12:52 97.9 58 18 159/77 (104) 97 97.9 09/15/25 08:00 Room Air* 0 21 Total Intake and Output 09/14/25 09/14/25 09/15/25 15:00 23:00 07:00 Intake Total 100 ml 640 ml 900 ml Output Total 525 ml Balance 100 ml 115 ml 900 ml medications Current Medications Medications Dose Ordered Sig/Keshawn Route Start Time Stop Time Status Last Admin Dose Admin Levetiracetam 100 ml @ 400 mls/hr BID IV 09/06/25 22:00 09/15/25 09:43 400 MLS/HR Sodium Chloride 10 ml Q8HR IV 09/06/25 14:00 09/15/25 14:00 10 ML Acetaminophen 650 mg Q6HP PRN PO 09/06/25 12:30 Enoxaparin Sodium 40 mg DAILY SC 09/07/25 10:00 09/15/25 09:36 40 MG Lorazepam 1 mg Q2HPRN PRN IV 09/07/25 05:45 Aspirin 81 mg DAILY NG 09/08/25 10:00 09/15/25 09:36 81 MG Pantoprazole Sodium 40 mg DAILY IV 09/08/25 10:00 09/15/25 09:35 40 MG Piperacillin Sod/ Tazobactam Sod 100 ml @ 25 mls/hr Q8HR IV 09/07/25 22:00 09/15/25 15:34 25 MLS/HR Hydralazine HCl 10 mg Q6HP PRN IV 09/08/25 19:15 09/13/25 09:41 10 MG Docusate Sodium 100 mg BIDPRN PRN GT 09/09/25 16:45 09/10/25 22:05 100 MG Lisinopril 10 mg DAILY PO 09/13/25 16:00 09/15/25 09:36 10 MG objective GENERAL: Alert and oriented x 3. No acute distress. EYES: PERRL, EOMI. Anicteric. HENT: Moist mucous membranes. LUNGS: Decreased breath sounds. CARDIOVASCULAR: Regular rate and rhythm. ABDOMEN: Soft, nontender and nondistended. EXTREMITIES: No edema. SKIN: Warm, dry. laboratory and microbiology Laboratory Tests 09/15/25 10:00 09/14/25 05:04 Test 09/15/25 10:00 Range/Units Serum Glucose 84 74-106 mg/dL Problem List Elevated troponins. Sinus bradycardia. Hypokalemia. Seizures. HLD. HTN. Assessment/Plan Continued all current supportive medical care. Aspirin. DVT and GI prophylactics. IV Hydralazine for SBP > 150. Lisinopril. IV antibiotics as ordered. Additional plan as per the hospital course. Dietary Evaluation Review Comments: 1. TF Vital high Protein @60ml/hr providing 126g Protein 1440kcal, 1204ml free water, meeting pt's needs @ 136% Protein, 93% energy 2. Rassess when Pt is off vent. Expected Outcomes/Goals: Improved nutrition related lab profile, graduaul weight gain Plan discussed with: Patient MOISES HANKINS MD Sep 15, 2025 16:43
--- NOTE | 2025-09-15 18:56 | DVH ---
CHEST RADIOGRAPH Indication: PNA Technique: Single frontal view of the chest was obtained Comparison: XY CHEST XRAY 1 VIEW on DOS: 09/11/25, XY CHEST PORTABLE on DOS: 09/10/25, XY CHEST PORTABLE on DOS: 09/09/25 FINDINGS: Lines and Tubes: Endotracheal tube has been removed. Lungs: Both lung lorenz appear well aerated with no significant areas of atelectasis. Pleura: No effusion. No pneumothorax. Cardiomediastinal contours: Unremarkable Bones: No acute osseous abnormality. IMPRESSION: 1. Endotracheal tube removed. 2. No significant areas of atelectasis on the right or left..
[2025-09-15] MEDS: levETIRAcetam 500 MG TAB PO SCH (21:39)
[2025-09-16 05:00] VITALS: BP 150/86; PULSE 51; RESP 18; TEMP 98.4; O2SAT 98
[2025-09-16] MEDS: PANTOPRAZOLE 40 MG TAB PO SCH (05:40)
[2025-09-16 05:56] LABS: Hematocrit 32.0 % (41.0-53.0); Hemoglobin 11.4 g/dL (13.5-17.5); Mean Corpuscular Hemoglobin 32.1 pg (28.0-32.0); Mean Corpuscular Volume 89.7 fL (80.0-100.0); Nucleated Red Blood Cells % 0.2 %
[2025-09-16 06:02] LABS: Chloride 105 mmol/L (98-107); Sodium 140 mmol/L (136-145)
[2025-09-16 06:03] LABS: Anion Gap 11 (5-15); Carbon Dioxide 24 mmol/L (20-31)
[2025-09-16 06:04] LABS: Calcium 9.3 mg/dL (8.7-10.4)
[2025-09-16 06:08] LABS: Glucose 90 mg/dL (74-106)
[2025-09-16 06:09] LABS: BUN/Creatinine Ratio 18.5 (10.0-20.0); Blood Urea Nitrogen 12 mg/dL (9-23)
[2025-09-16 06:18] LABS: Potassium 3.4 mmol/L (3.5-5.1)
[2025-09-16 08:00] VITALS: PULSE 64; RESP 18; O2SAT 97
[2025-09-16 08:53] VITALS: BP 147/91; PULSE 66; RESP 18; TEMP 97.8; O2SAT 97
--- NOTE | 2025-09-16 08:53 | DVHPNRES ---
Progress Note Date Seen: Sep 16, 2025 Resident Creating Document: LAURA BOND RESIDENT Has the PT tested + for MRSA If YES, has PT been informed?: No Medical Necessity Reason Pt with a Central, PICC or Fol: No Subjective Review of Systems Patient is a 65-year-old male with past medical history of anxiety, GERD, seizure disorder. as per patient had a seizure at 2:00 a.m. on 09/06/2025. Which was followed by another tonic-clonic seizure 20 minutes later. For which called 911. Upon arrival in the ER patient had another for seizures which did not turn to baseline for 1 hour. states that patient's last seizure was on August 04. Patient was intubated in the ER patient was shaking and had altered level of consciousness. states that patient did not have any recent illnesses, flu-like symptoms, sick contacts. As per patient is compliant with medications for seizure( Depakote). past surgical history: Denies any surgeries Family history: Cancer in sister, uncle Social history: Smokes marijuana, denies any cigarette, alcohol, drug use. Lives with: Spouse, at home 09/07/2025: Patient seen in the ICU. as per patient did not experience any chest pain, palpitations, shortness of breath. Overnight patient's heart rate did drop to the 30s for which dopamine was . Patient has elevated troponins, cardiology was consulted. Patient has sinus bradycardia. potassium was replaced. Started vital HP feeding. Aspirin given. Patient is too unstable to transfer. Neurology on board, As per cardiology heparin drip and aspirin to be held 09/08/2025: Patient seen and examined in the ICU. Patient was intubated and sedated, according to family patient was having seizure for last two years, denies any prior head trauma, EEG pending. 09/09/2025: : Patient seen and examined in the ICU. Patient was intubated and sedated, ordered MRI, pending for EEG. 09/10/25 : Patient is scheduled for MRI today at 3 : 30 p.m. 09/11/23: Patient seen and examined at bedside, patient is on minimal vent setting, CPAP trial done, patient is extubated today. 09/12/25: Seen and examined at bedside, patient is little confused, patient is on Room Air, patient is off pressors and off sedation. Downgrade patient to TELE. 09/14/25: Patient seen and examined at bedside, no new complaints, no seizure- like activity no tremor. Patient is working with PT 09/15/25: Patient seen and examined at bedside, no new complaints, no seizure- like activity no tremor. Patient is working with PT, patient was out of pain but Patient did not walk it 09/16/25: Patient seen and examined at bedside, no new complaints, patient is working with PT. Discharge planning to home. Objective vital signs Vital Sign Date Time Temp Pulse Resp B/P (MAP) Pulse Ox O2 Delivery O2 Flow Rate FiO2 09/16/25 05:00 98.4 51 18 150/86 (107) 98 98.4 09/15/25 20:00 Room Air* 0 21 Total Intake and Output 09/15/25 09/15/25 09/16/25 15:00 23:00 07:00 Intake Total 550 ml 440 ml Output Total 400 ml 350 ml Balance 150 ml 90 ml medications Current Medications Medications Dose Ordered Sig/Keshawn Route Start Time Stop Time Status Last Admin Dose Admin Sodium Chloride 10 ml Q8HR IV 09/06/25 14:00 09/16/25 05:52 10 ML Acetaminophen 650 mg Q6HP PRN PO 09/06/25 12:30 Enoxaparin Sodium 40 mg DAILY SC 09/07/25 10:00 09/15/25 09:36 40 MG Lorazepam 1 mg Q2HPRN PRN IV 09/07/25 05:45 Aspirin 81 mg DAILY NG 09/08/25 10:00 09/15/25 09:36 81 MG Piperacillin Sod/ Tazobactam Sod 100 ml @ 25 mls/hr Q8HR IV 09/07/25 22:00 09/16/25 05:40 25 MLS/HR Hydralazine HCl 10 mg Q6HP PRN IV 09/08/25 19:15 09/13/25 09:41 10 MG Docusate Sodium 100 mg BIDPRN PRN GT 09/09/25 16:45 09/10/25 22:05 100 MG Lisinopril 10 mg DAILY PO 09/13/25 16:00 09/15/25 09:36 10 MG Levetiracetam 1,000 mg BID PO 09/15/25 22:00 09/15/25 21:39 1,000 MG Pantoprazole Sodium 40 mg DAILY@0600 PO 09/16/25 06:00 09/16/25 05:40 40 MG Examination GENERAL: Not in acute distress. HEENT: EOMI, Moist mucous membranes. No scleral icterus. No cervical lymphadenopathy. LUNGS: Clear to auscultation bilaterally. No accessory muscle use. CARDIOVASCULAR: Regular rate and rhythm. No murmur. No JVD. ABDOMEN: Soft, nontender and nondistended. No palpable masses. EXTREMITIES: No edema. Nontender. SKIN: No rashes or lesions. Warm. NEUROLOGIC: Patient is alert and oriented. laboratory and microbiology Laboratory Tests 09/16/25 05:29 Test 09/16/25 05:29 Range/Units Serum Glucose 90 74-106 mg/dL Microbiology Date/Time Source Procedure Growth Status 09/06/25 18:27 Nose MRSA Screen - Final Complete 09/06/25 08:35 Urine - [place] Urine Culture - Final Complete 09/06/25 08:05 Blood Blood Culture - Final NO GROWTH AFTER 5 DAYS OF INCUBATION. Complete 09/06/25 07:39 Sputum Gram Stain - Final Complete 09/06/25 07:39 Sputum Respiratory Culture - Final Complete Problem List/Assessment/Plan Problem List/Assessment/Plan Neurology # metabolic encephalopathy due to seizure # Status epilepticus # Generalized tonic-clonic seizures # Syncope # Partial complex seizure # Tremor in both upper extremities # Essential tremors # Ruled out Parkinson's disease - Keppra 1000 mg PO b.i.d. - Depakote home medication - neurology consult, -EEG : Moderately abnormal cerebral activity - head CT showed NO ACUTE INTRACRANIAL ABNORMALITY SEEN. - MRI brain: No acute intracranial abnormality Cardiology # NSTEMI type 2, type 1 not ruled out # Hypertension # Hyperlipidemia # sinus bradycardia - cardiology consulted - As per cardio, heparin and asprin to be held - dopamine drip for bradycardia - dopamine drip was held then restarted when patient's heart rate went below 60 - echo 09/07/25: EF 65%, moderately dilated RV and is hypokinetic - elevated troponins 74> 818> 684> 516 -ischemic workup at patient is stable as per clinical biochemist - IV hydralazine p.r.n. for hypertension Respiratory # acute respiratory failure secondary to pneumonia on mechanical ventilation # Possible aspiration pneumonia - Repeat chest x-ray shows: No significant areas of atelectasis on the right or left. - D/C antibiotics Gastroenterology # history of GERD - GI prophylaxis Protonix - Reglan Electrolytes # Hypokalemia - replaced DVT prophylaxis: Lovenox PPI prophylaxis: Protonix Discharge planning to home tomorrow. Case discussed with Dr. Vela My Orders My Orders Orders - LAURA BOND RESIDENT Procedure Category Date Status Time Levetiracetam Tablet PHA 09/15/25 In Process (Keppra Tablet) 22:00 Pantoprazole Tablet PHA 09/16/25 In Process (Protonix Tablet) 06:00 Chest Xray 1 View XY 09/15/25 Resulted 16:37 Dietary Evaluation Review Comments: 1. TF Vital high Protein @60ml/hr providing 126g Protein 1440kcal, 1204ml free water, meeting pt's needs @ 136% Protein, 93% energy 2. Rassess when Pt is off vent. Expected Outcomes/Goals: Improved nutrition related lab profile, graduaul weight gain LAURA BOND RESIDENT Sep 16, 2025 08:53
--- NOTE | 2025-09-16 10:02 | DVHPN2 ---
Progress Note - Dictate Date Seen: Sep 16, 2025 Has the PT tested + for MRSA If YES, has PT been informed?: No Medical Necessity Reason Pt with a Central, PICC or Fol: No Subjective Mr. Morgan is a 65 years old left-handed gentleman with a history of seizure, GERD, anxiety, he was brought to the [facility] on 09/06/2025 with a chief complaint of seizure activity. I have seen and examined the patient, discussed with his nurse, he is awake, oriented to person, place, he knows year, happy, but can not give me a good history about his seizure No seizure activity today WBC/HB/PLT/MCV, 09/07/25: 7.2/13/262/90.4 CBC, 09/07/25 0829: Unremarkable K, 09/07/2025: 2.8 Lactic acid, 09/06/2025: 8.1, 4.3 Liver function tests, 09/07/2025: Unremarkable EEG, 09/08/2025: Moderately abnormal EEG CT head, 09/06/2025: NO ACUTE INTRACRANIAL ABNORMALITY SEEN MRI head 09/10/2025: No acute infarct or intracranial hemorrhage vital signs Vital Sign Date Time Temp Pulse Resp B/P (MAP) Pulse Ox O2 Delivery O2 Flow Rate FiO2 09/16/25 08:53 97.8 66 18 147/91 (109) 97 97.8 09/16/25 08:00 Room Air* 0 21 Total Intake and Output 09/15/25 09/15/25 09/16/25 15:00 23:00 07:00 Intake Total 550 ml 440 ml Output Total 400 ml 350 ml Balance 150 ml 90 ml medications Current Medications Medications Dose Ordered Sig/Keshawn Route Start Time Stop Time Status Last Admin Dose Admin Sodium Chloride 10 ml Q8HR IV 09/06/25 14:00 09/16/25 05:52 10 ML Acetaminophen 650 mg Q6HP PRN PO 09/06/25 12:30 Enoxaparin Sodium 40 mg DAILY SC 09/07/25 10:00 09/15/25 09:36 40 MG Lorazepam 1 mg Q2HPRN PRN IV 09/07/25 05:45 Aspirin 81 mg DAILY NG 09/08/25 10:00 09/15/25 09:36 81 MG Piperacillin Sod/ Tazobactam Sod 100 ml @ 25 mls/hr Q8HR IV 09/07/25 22:00 09/16/25 05:40 25 MLS/HR Hydralazine HCl 10 mg Q6HP PRN IV 09/08/25 19:15 09/13/25 09:41 10 MG Docusate Sodium 100 mg BIDPRN PRN GT 09/09/25 16:45 09/10/25 22:05 100 MG Lisinopril 10 mg DAILY PO 09/13/25 16:00 09/15/25 09:36 10 MG Levetiracetam 1,000 mg BID PO 09/15/25 22:00 09/15/25 21:39 1,000 MG Pantoprazole Sodium 40 mg DAILY@0600 PO 09/16/25 06:00 09/16/25 05:40 40 MG objective The patient is well-nourished and well-developed with no distress. MENTAL STATUS: Subjective CRANIAL NERVES: Pupils are equal, round and reactive, PERRL, normal conjugated eye movement, normal sensory and motor examination in bilateral trigeminal distribution, no facial weakness SENSATION: Okay to pinprick and light touch MOTOR: Normal tone in the upper and lower extremity. Normal muscle bulk. No fasciculations. Moves the arms and legs REFLEXES: Deep tendon reflexes are symmetrical. No pathological reflexes. CEREBELLAR/COORDINATION: No ataxia GAIT/STATION: deferred. laboratory and microbiology Laboratory Tests 09/16/25 05:29 Test 09/16/25 05:29 Range/Units Serum Glucose 90 74-106 mg/dL Problem List Status epileptics General realized seizures Passing out [id number], Syncope Partial complex seizure Tremor in both upper extremities Essential tremors Rule out Parkinson's disease Rule out medication effects Assessment/Plan Monitoring Supportive treatment Follow up for labs Keppra 1000 mg IV b.i.d. for now Ativan for seizure breakthrough Not treatment for the tremors/Parkinson's disease at this time GI prophylaxis DVT prophylaxis More history of the seizure, tremors once he is mentally improved More recommendation per clinical course This medical document was created using an electronic medical record system with [employer] system. Although this document has been carefully reviewed, there may still be some phonetic and typographical errors. These areas are purely typographical due to imperfections of the software programs, and do not reflect any compromise in the patient's medical care. Prognosis poor Dietary Evaluation Review Comments: 1. TF Vital high Protein @60ml/hr providing 126g Protein 1440kcal, 1204ml free water, meeting pt's needs @ 136% Protein, 93% energy 2. Rassess when Pt is off vent. Expected Outcomes/Goals: Improved nutrition related lab profile, graduaul weight gain Plan discussed with: Other EMIGDIO THOMPSON MD Sep 16, 2025 10:02
[2025-09-16 13:00] VITALS: BP 124/94; PULSE 116; RESP 17; TEMP 98; O2SAT 99
[2025-09-16] MEDS: LORazepam 2MG/ML-1ML VIAL IV PRN (13:32)
[2025-09-16] MEDS ORDERED: AMOX500T86 PO (15:07)
--- NOTE | 2025-09-16 15:09 | DVHDSRES ---
Discharge Summary Date of Admission Resident Creating Document: LAURA BOND RESIDENT Sep 06, 2025 at 12:25 Date of Discharge: Sep 16, 2025 Admitting Diagnosis Tonic-clonic seizure, status epilepticus Labs/Diagnostic Data: Laboratory Results Test 09/16/25 05:29 09/14/25 05:04 09/11/25 13:57 09/11/25 06:35 White Blood Count 5.5 10^3/uL (4.4-10.8) Red Blood Count 3.57 10^6/uL (4.5-5.90) Hemoglobin 11.4 g/dL (13.5-17.5) Hematocrit 32.0 % (41.0-53.0) Mean Corpuscular Volume 89.7 fL (80.0-100.0) Mean Corpuscular Hemoglobin 32.1 pg (28.0-32.0) Mean Corpuscular Hemoglobin Concent 35.8 g/dL (32.0-36.0) Red Cell Distribution Width 14.1 % (11.8-14.3) Platelet Count 381 10^3/uL (140-450) Mean Platelet Volume 7.2 fL (6.9-10.8) Neutrophils (%) (Auto) 64.0 % (37.0-80.0) Lymphocytes (%) (Auto) 23.1 % (10.0-50.0) Monocytes (%) (Auto) 10.5 % (0.0-12.0) Eosinophils (%) (Auto) 1.1 % (0.0-7.0) Basophils (%) (Auto) 1.3 % (0.0-2.0) Neutrophils # (Auto) 3.5 10 ^3/uL (1.6-8.6) Lymphocytes # (Auto) 1.3 10 ^3/uL (0.4-5.4) Monocytes # (Auto) 0.6 10 ^3/uL (0-1.3) Eosinophils # (Auto) 0.1 10 ^3/uL (0-0.8) Basophils # (Auto) 0.1 10 ^3/uL (0-0.2) Nucleated Red Blood Cells 0.2 % Sodium Level 140 mmol/L (136-145) Potassium Level 3.4 mmol/L (3.5-5.1) Chloride Level 105 mmol/L (98-107) Carbon Dioxide Level 24 mmol/L (20-31) Anion Gap 11 (5-15) Blood Urea Nitrogen 12 mg/dL (9-23) Creatinine 0.65 mg/dL (0.700-1.30) Glomerular Filtration Rate Calc 104 mL/min (>90) BUN/Creatinine Ratio 18.5 (10.0-20.0) Serum Glucose 90 mg/dL (74-106) Calcium Level 9.3 mg/dL (8.7-10.4) Total Bilirubin 0.6 mg/dL (0.2-1.0) Aspartate Amino Transferase (AST) 29 U/L (13-40) Alanine Aminotransferase (ALT) 45 U/L (7-40) Alkaline Phosphatase 152 U/L (46-116) Total Protein 6.3 g/dL (5.7-8.2) Albumin 3.8 g/dL (3.2-4.8) Blood Gas Specimen Type Arterial Blood Gas Sample Site Left radial Blood Gas Patient Temperature 37.0 Arterial Blood Date Drawn [id number] Arterial Blood pH 7.494 (7.350-7.450) Arterial Blood Partial Pressure CO2 30.4 mmHg (35.0-48.0) Arterial Blood Partial Pressure O2 78.0 mmHg (83.0-108.0) Arterial Blood HCO3 22.9 mmol/L (21.0-28.0) Arterial Blood Oxygen Saturation 95.0 % (94.0-98.0) Arterial Blood Base Excess 0.3 mmol/L (-2.0-3.0) Arterial Blood Oxyhemoglobin 94.3 % (94.0-98.0) Arterial Blood Carboxyhemoglobin 0.6 % (0.5-1.5) Arterial Blood Methemoglobin 0.1 % (0.0-1.5) Ramses Test Modified Blood Gas Total Hemoglobin 12.10 g/dL (13.5-17.5) Blood Gas Modality Vent - ac FiO2 % 30.0 Blood Gas Pressure Support 8 Blood Gas PEEP or CPAP 5.0 Blood Gas Set Respiration Rate 16.0 Blood Gas Tidal Volume 500.0 Test 09/11/25 03:19 09/09/25 03:40 09/08/25 07:28 09/08/25 03:50 Magnesium Level 2.0 mg/dL (1.6-2.6) Creatine Kinase 142 U/L (46-171) Blood Gas Critical Value Read Back Yes Vitamin B12 Level 255 pg/mL (211-911) Test 09/07/25 20:16 09/07/25 15:58 09/07/25 15:46 09/07/25 11:35 Troponin I High Sensitivity 516 ng/L (</=54) Phosphorus Level 3.6 mg/dL (2.4-5.1) Urine Color Yellow (Yellow) Urine Clarity Turbid (Clear) Urine pH 6.0 (5.0-9.0) Urine Specific [place] 1.034 (1.001-1.035) Urine Protein Trace (Negative) Urine Ketones 1+ (Negative) Urine Blood 2+ /uL (Negative) Urine Nitrite Negative (Negative) Urine Bilirubin Negative (Negative) Urine Urobilinogen Normal mg/dL (Negative) Urine Leukocyte Esterase Negative /uL (Negative) Urine RBC 223 /hpf (0 - 3) Urine Microscopic WBC 11 /HPF (0-3) Urine Squamous Epithelial Cells None seen /hpf (<5) Urine Bacteria None seen /hpf (None Seen) Urine Glucose Trace mg/dL (Normal) Lactic Acid Level 0.9 mmol/L (0.4-2.0) Test 09/07/25 04:00 09/06/25 08:35 Direct Bilirubin 0.2 mg/dL (<0.3) Thyroid Stimulating Hormone (TSH) 0.86 uIU/mL (0.55-4.78) Urine Mucus Few (None Seen) Urine Opiates Screen Neg (NEGATIVE) Urine Fentanyl Screen Neg (NEGATIVE) Urine Barbiturates Screen Neg (NEGATIVE) Urine Phencyclidine Screen Neg (NEGATIVE) Urine Amphetamines Screen Neg (NEGATIVE) Urine Benzodiazepines Screen Pos (NEGATIVE) Urine Cocaine Screen Neg (NEGATIVE) Urine Cannabinoids Screen Pos (NEGATIVE) Other Laboratory Tests 09/16/25 05:29 Brief Hx & Hospital Course: Patient is a 65-year-old male with past medical history of anxiety, GERD, seizure disorder. as per patient had a seizure at 2:00 a.m. on 09/06/2025. Which was followed by another tonic-clonic seizure 20 minutes later. For which called 911. Upon arrival in the ER patient had another for seizures which did not turn to baseline for 1 hour. states that patient's last seizure was on August 04. Patient was intubated in the ER patient was shaking and had altered level of consciousness. states that patient did not have any recent illnesses, flu-like symptoms, sick contacts. As per patient is compliant with medications for seizure( Depakote). As per patient did not experience any chest pain, palpitations, shortness of breath. Overnight patient's heart rate did drop to the 30s for which dopamine was . Patient has elevated troponins, cardiology was consulted. Patient has sinus bradycardia. potassium was replaced. Started vital HP feeding. Aspirin given. Neurology on board, As per cardiology heparin drip and aspirin to be held. according to family patient was having seizure for last two years, denies any prior head trauma, MRI shows: No acute intracranial abnormality, head CT showed NO ACUTE INTRACRANIAL ABNORMALITY SEEN. EEG : Moderately abnormal cerebral activity. aspiration pneumonia was treated with Zosyn, patient is successfully extubated on 09/11/23. Patient was downgraded to [facility]. Patient was seizure-free from admission, patient is walking with PT, today patient is hemodynamically stable, repeat x-ray shows pneumonia resolved, IV antibiotic switch to p.o. Augmentin. Patient is going to be discharged home today with Augmentin 500 mg b.i.d. for five days, advised patient to follow up with Martina. time spent in discharge planning was 41 mins Condition at Discharge: Fair Final Diagnosis/Problems List # metabolic encephalopathy due to seizure # Status epilepticus # Generalized tonic-clonic seizures # Syncope due to seizure # Partial complex seizure # Tremor in both upper extremities # Essential tremors # Ruled out Parkinson's disease # NSTEMI type 2, type 1 not ruled out # Hypertension # Hyperlipidemia # sinus bradycardia # acute respiratory failure secondary to pneumonia # Possible aspiration pneumonia # GERD # Hypokalemia Discharge Disposition: Home SNF Discharge Will this Physician continue t: No Discharge Instruct/Medications Diet: Regular Activity: No Restrictions, As Tolerated Follow Up/Referral: Follow up with martina in 1-2 weeks Medications: Augmentin 500 mg BID X 5days Resume home medications Scheduled Amoxicillin & Pot Clavulanate (Augmentin), 500 MG PO BID Discharge Statement: "Patient was advised to return to the ER or call 911 if any headaches, dizziness, shortness of breath, chest pain, abdominal pain, bleeding, fevers, or worsening of medical condition. Patient was counseled about treatment plan, medications, possible side effects, patientverbalized understanding. All questions were answered to the best of my ability. This discharge took greater then 30 minutes in planning, reviewing documentation, counseling the patient, and discussing with other team members." ASSESSMENT ASSESSMENT Assessment # metabolic encephalopathy due to seizure # Status epilepticus # Generalized tonic-clonic seizures # Syncope due to seizure # Partial complex seizure # Tremor in both upper extremities # Essential tremors # Ruled out Parkinson's disease # NSTEMI type 2, type 1 not ruled out # Hypertension # Hyperlipidemia # sinus bradycardia # acute respiratory failure secondary to pneumonia # Possible aspiration pneumonia # GERD # Hypokalemia Date of Service: Sep 16, 2025 Billing Provider: OMI HATCH MD Common Visit Codes: 29410-ACM/OBS DISCH DAY >30min LAURA BOND Sep 16, 2025 15:09 OMI HATCH MD Sep 18, 2025 11:23
[2025-09-16 17:00] VITALS: BP 139/97; PULSE 104; RESP 18; TEMP 97.9; O2SAT 97
[2025-09-16 17:31] VITALS: BP 147/91; TEMP 36.6
--- NOTE | 2025-09-17 00:22 | DVHPN2 ---
Progress Note - Dictate Date Seen: Sep 16, 2025 Has the PT tested + for MRSA If YES, has PT been informed?: No Medical Necessity Reason Pt with a Central, PICC or Fol: No Subjective Patient was seen and evaluated in follow up. Sitter is at bedside. Patient is working with PT. Patient is cardiac stable for discharge. Telemetry reviewed. vital signs Vital Sign Date Time Temp Pulse Resp B/P (MAP) Pulse Ox O2 Delivery O2 Flow Rate FiO2 09/16/25 13:00 98.0 116 17 124/94 (104) 99 98.0 09/16/25 08:00 Room Air* 0 21 Total Intake and Output 09/15/25 09/15/25 09/16/25 15:00 23:00 07:00 Intake Total 550 ml 440 ml Output Total 400 ml 350 ml Balance 150 ml 90 ml medications Current Medications Medications Dose Ordered Sig/Keshawn Route Start Time Stop Time Status Last Admin Dose Admin Sodium Chloride 10 ml Q8HR IV 09/06/25 14:00 09/16/25 13:32 10 ML Acetaminophen 650 mg Q6HP PRN PO 09/06/25 12:30 Enoxaparin Sodium 40 mg DAILY SC 09/07/25 10:00 09/16/25 10:26 40 MG Lorazepam 1 mg Q2HPRN PRN IV 09/07/25 05:45 09/16/25 13:32 1 MG Aspirin 81 mg DAILY NG 09/08/25 10:00 09/16/25 10:24 81 MG Piperacillin Sod/ Tazobactam Sod 100 ml @ 25 mls/hr Q8HR IV 09/07/25 22:00 09/16/25 13:32 25 MLS/HR Hydralazine HCl 10 mg Q6HP PRN IV 09/08/25 19:15 09/13/25 09:41 10 MG Docusate Sodium 100 mg BIDPRN PRN GT 09/09/25 16:45 09/10/25 22:05 100 MG Lisinopril 10 mg DAILY PO 09/13/25 16:00 09/16/25 10:25 10 MG Levetiracetam 1,000 mg BID PO 09/15/25 22:00 09/16/25 10:25 1,000 MG Pantoprazole Sodium 40 mg DAILY@0600 PO 09/16/25 06:00 09/16/25 05:40 40 MG objective GENERAL: Alert and oriented x 3. No acute distress. EYES: PERRL, EOMI. Anicteric. HENT: Moist mucous membranes. LUNGS: Decreased breath sounds. CARDIOVASCULAR: Regular rate and rhythm. ABDOMEN: Soft, nontender and nondistended. EXTREMITIES: No edema. SKIN: Warm, dry. laboratory and microbiology Laboratory Tests 09/16/25 05:29 Test 09/16/25 05:29 Range/Units Serum Glucose 90 74-106 mg/dL Problem List Elevated troponins. Sinus bradycardia. Hypokalemia. Seizures. HLD. HTN. Assessment/Plan Continued all current supportive medical care. Aspirin. DVT and GI prophylactics. Lisinopril. IV antibiotics as ordered. Additional plan as per the hospital course. Dietary Evaluation Review Comments: 1. TF Vital high Protein @60ml/hr providing 126g Protein 1440kcal, 1204ml free water, meeting pt's needs @ 136% Protein, 93% energy 2. Rassess when Pt is off vent. Expected Outcomes/Goals: Improved nutrition related lab profile, graduaul weight gain Plan discussed with: Patient MOISES HANKINS MD Sep 16, 2025 13:45
== END 2025-09-16 17:55 | disposition home or self-care (01) | DRG 100 ==
LOC: EDUNIT# 04:52 → ER 04:52 → EDBD 04:52 → OVERFLOW 12:25 → ICU WEST 12:26 → TELE-CENTR 09-12 15:13 → TELE-EAST 09-15 06:00
PROVIDERS: ADMIT Internal Medicine; ATTEND Internal Medicine
PROC: 5A1955Z Respiratory Ventilation, Greater than 96 Consecutive Hours (ICD-10-PCS; principal; 2025-09-06)
PROC: 0BH17EZ Insertion of Endotracheal Airway into Trachea, Via Natural or Artificial Opening (ICD-10-PCS; 2025-09-06)
PROC: 06HY33Z Insertion of Infusion Device into Lower Vein, Percutaneous Approach (ICD-10-PCS; 2025-09-06)
DX: G40.201 Localization-related (focal) (partial) symptomatic epilepsy and epileptic syndromes with complex partial seizures, not intractable, with status epilepticus (principal); I21.A1 Myocardial infarction type 2; J69.0 Pneumonitis due to inhalation of food and vomit; J96.01 Acute respiratory failure with hypoxia; G40.401 Other generalized epilepsy and epileptic syndromes, not intractable, with status epilepticus; I10 Essential (primary) hypertension; E87.6 Hypokalemia; E78.5 Hyperlipidemia, unspecified; F41.9 Anxiety disorder, unspecified; K21.9 Gastro-esophageal reflux disease without esophagitis; G25.0 Essential tremor; R00.1 Bradycardia, unspecified; Z79.899 Other long term (current) drug therapy; Z80.9 Family history of malignant neoplasm, unspecified
CPT/HCPCS: 31500; 36415; 36556; 36600; 70450; 70551; 71045; 80048; 80053; 80076; 80307; 81001; 82550; 82607; 82805; 83605; 83735; 84100; 84443; 84484; 85025; 87040; 87070; 87081; 87086; 87205; 93005; 93306; 94002; 94003; 95819; 97110; 97116; 97163; 97530; 99291; 99292; G0378; J0131; J2250; J2470; J2543; J2704; J3480